=== PATIENT | male | born 1935 | race Caucasian/White ===

== ENCOUNTER 2016-08-18 15:14 | Inpatient (IN) | payer MEDICARE, OTHER ==
[2016-08-18] MEDS ORDERED: Sodium Chloride 0.9% 1,000 ML IV SCH (16:00)
--- NOTE | 2016-08-18 18:07 | EDM.PDOC ---
ED HPI GENERAL MEDICAL PROBLEM - General Chief Complaint: General Stated Complaint: ADMIT VIA CLINIC Time Seen by Provider: 08/18/16 15:30 Source of Information: Reports: Patient, EMS, Family History Limitations: Reports: No limitations - History of Present Illness INITIAL COMMENTS - FREE TEXT/NARRATIVE: pt was sent from the clinic looking quite jaundiced. He has muild upper abdomanal pain. he is not vomiting. He noticed some skin changes about 1 week ago. Onset: gradual Duration: Week(s): Location: Reports: generalized Associated Symptoms: Reports: denies other symptoms, weakness - Related Data Allergies Allergy/AdvReac Type Severity Reaction Status Date / Time No Known Allergies Allergy Verified 08/18/16 16:47 Home Meds: Home Meds Multivitamin with Minerals [Multiple Vitamin] 1 each PO DAILY 11/19/13 [History] [place]-3/DHA/Epa/Fish Oil [Fish Oil 1,000 mg Softgel] 1 each PO DAILY 11/19/13 [ History] Sennosides/Docusate Sodium [Sennosides-Docusate Sodium] 1 each PO BID 11/19/13 [ History] Melatonin/Pyridoxine HCl (B6) [Melatonin 10 mg Tablet] 1 each PO BEDTIME [History] Finasteride [Proscar] 5 mg PO DAILY #30 tablet 12/14/13 [Rx] Tamsulosin [Flomax] 0.4 mg PO PCBRK #30 cap.er 12/14/13 [Rx] Hydrocodone/Acetaminophen [Hydrocodone-Acetaminophen 5-325] 1 tab PO Q6H [History] Nitroglycerin [Nitrostat] 0.4 mg SL ASDIRECTED 07/03/15 [History] Past Medical History HEENT History: Reports: Allergic rhinitis, Hard of hearing, Impaired vision Gastrointestinal History: Reports: Chronic constipation, Diverticulosis, Gastritis, GI bleed, Other (see below) Other Gastrointestinal History: "vitaticulitisis" Genitourinary History: Reports: BPH, Prostate disorder Musculoskeletal History: Reports: Other (see below) Other Musculoskeletal History: collar bone Hematologic History: Reports: Transfusion reaction - Infectious Disease History Infectious Disease History: Reports: Chicken pox - Past Surgical History HEENT Surgical History: Reports: Tonsillectomy GI Surgical History: Reports: Colonoscopy Male Surgical History: Reports: TURP-Transurethral resection of prostate Musculoskeletal Surgical History: Reports: Shoulder surgery Other Musculoskeletal Surgeries/Procedures:: knee surgery Dermatological Surgical History: Reports: None Social & Family History - Family History Family Medical History: Noncontributory - Tobacco Use Smoking Status *Q: Never Smoker Second Hand Smoke Exposure: No - Caffeine Use Caffeine Use: Reports: None - Recreational Drug Use Recreational Drug Use: No ED ROS GENERAL - Review of Systems Review Of Systems: See Below Constitutional: Reports: decreased appetite HEENT: Reports: No symptoms Respiratory: Reports: No Symptoms Cardiovascular: Reports: No symptoms Endocrine: Reports: no symptoms GI/Abdominal: Reports: Other (pt has noted sig jaundice over the past week. He has just had prostate surgery for benign enlarged prostate and back surgery. ) : Reports: no symptoms Musculoskeletal: Reports: no symptoms Skin: Reports: jaundice Neurological: Reports: No Symptoms ED EXAM, GENERAL - Physical Exam Exam: See Below Free Text/Narrative:: pt arrived with mild discomfort in the upper abdoman. He has noted sig jaundice. Exam Limited By: No limitations General Appearance: alert, mild distress, other (Pt is severely jaundiced. ) Ears: normal TMs Nose: normal inspection Throat/Mouth: Normal inspection Head: atraumatic Neck: normal inspection Respiratory/Chest: no respiratory distress Cardiovascular: regular rate, rhythm GI/Abdominal: soft, other ( very mild upper abdomanal tenderness. The liver on palpation does not appear to be enlarged. ) (Male) Exam: Deferred Rectal (Males) Exam: Deferred Back Exam: normal inspection Extremities: normal inspection Neurological: alert, oriented, normal cognition Psychiatric: anxious Skin Exam: Jaundice Course - Vital Signs Last Recorded V/S: Last Vital Signs Temp 37.3 C 08/18/16 15:39 Pulse 66 08/18/16 15:39 Resp 16 08/18/16 15:39 BP 139/86 08/18/16 15:39 Pulse Ox 98 08/18/16 15:39 - Orders/Labs/Meds Orders: Active Orders 24 hr Category Date Time Status Abdomen Ltd [US] Stat Exams 08/18/16 15:51 Taken Abdomen Pelvis wo Cont [CT] Stat Exams 08/18/16 16:46 Taken AMMONIA VENOUS [CHEM] Stat Lab 08/18/16 18:31 Ordered PTT,PARTIAL THROMBOPLSTIN TIME [COAG] Stat Lab 08/18/16 18:31 Ordered Sodium Chloride 0.9% [Normal Saline] 1,000 ml Med 08/18/16 16:00 Active IV ASDIRECTED Medication Orders Sodium Chloride (Normal Saline) 1,000 mls @ 250 mls/hr IV ASDIRECTED MIKE Last Admin: 08/18/16 17:32 Dose: 250 mls/hr Labs: Laboratory Tests 08/18/16 08/18/16 Range/Units 15:49 15:49 ESR 83 H (0-20) mm/hr Amylase 20 L (25-115) U/L Lipase 37 L (73-393) U/L Meds: Medications Generic Name Dose Route Start Last Admin Trade Name Tayla PRN Reason Stop Dose Admin Sodium Chloride 1,000 mls @ 250 mls/hr 08/18/16 16:00 08/18/16 17:32 Normal Saline IV 250 mls/hr ASDIRECTED MIKE Administration - Re-Assessments/Exams Free Text/Narrative Re-Assessment/Exam: 08/18/16 18:29 liver enzymes markedly elevated, pancreatic enzymes normal cat scan of the abdoman shows a dilated gb and common duct. No stones are seen. sed rate is 80. Departure - Departure Time of Disposition: 18:32 Disposition: Admitted As Inpatient 66 Condition: fair Clinical Impression: Jaundice, Elevated liver enzymes, Abdominal pain Forms: ED Department Discharge Care Plan Goals: admit to Dr correa. - My Orders Last 24 Hours: My Active Orders 08/18/16 15:51 Abdomen Ltd [US] Stat 08/18/16 16:00 Sodium Chloride 0.9% [Normal Saline] 1,000 ml IV ASDIRECTED 08/18/16 16:46 Abdomen Pelvis wo Cont [CT] Stat 08/18/16 18:31 AMMONIA VENOUS [CHEM] Stat PTT,PARTIAL THROMBOPLSTIN TIME [COAG] Stat - Assessment/Plan Last 24 Hours: My Active Orders 08/18/16 15:51 Abdomen Ltd [US] Stat 08/18/16 16:00 Sodium Chloride 0.9% [Normal Saline] 1,000 ml IV ASDIRECTED 08/18/16 16:46 Abdomen Pelvis wo Cont [CT] Stat 08/18/16 18:31 AMMONIA VENOUS [CHEM] Stat PTT,PARTIAL THROMBOPLSTIN TIME [COAG] Stat
--- NOTE | 2016-08-18 19:08 | PCM.HP ---
H&P History of Present Illness - General Date of Service: 08/18/16 Admit Problem/Dx: Admission Diagnosis/Problem Admission Diagnosis/Problem Jaundice Source of Information: Patient, Provider, RN notes reviewed History Limitations: Reports: No limitations - History of Present Illness Initial Comments - Free Text/Narative: This patient is an 81-year-old gentleman was admitted through the emergency room for further evaluation of weakness, anorexia, pruritus, and severe jaundice. He felt well until about a week ago when he began to note yellow coloration to his skin, during that period of time is also developed other associated symptoms as noted. He denies any abdominal pain, nausea, or vomiting. Labs obtained at the clinic showed marked elevation in bilirubin at 20. CT scan of the abdomen and pelvis without contrast shows an enlarged gallbladder, with no wall thickening or pericolic fluid. CT scan showed no evidence of stones but did document intra-and extrahepatic ductal dilatation as well as prominence of the proximal pancreatic duct. - Related Data Allergies/Adverse Reactions: Allergies Allergy/AdvReac Type Severity Reaction Status Date / Time No Known Allergies Allergy Verified 08/18/16 16:47 Home Medications: Home Meds Multivitamin with Minerals [Multiple Vitamin] 1 each PO DAILY 11/19/13 [History] [place]-3/DHA/Epa/Fish Oil [Fish Oil 1,000 mg Softgel] 1 each PO DAILY 11/19/13 [ History] Sennosides/Docusate Sodium [Sennosides-Docusate Sodium] 1 each PO BID 11/19/13 [ History] Melatonin/Pyridoxine HCl (B6) [Melatonin 10 mg Tablet] 1 each PO BEDTIME [History] Finasteride [Proscar] 5 mg PO DAILY #30 tablet 12/14/13 [Rx] Tamsulosin [Flomax] 0.4 mg PO PCBRK #30 cap.er 12/14/13 [Rx] Hydrocodone/Acetaminophen [Hydrocodone-Acetaminophen 5-325] 1 tab PO Q6H [History] Nitroglycerin [Nitrostat] 0.4 mg SL ASDIRECTED 07/03/15 [History] Past Medical History HEENT History: Reports: Allergic rhinitis, Hard of hearing, Impaired vision Gastrointestinal History: Reports: Chronic constipation, Diverticulosis, Gastritis, GI bleed, Other (see below) Other Gastrointestinal History: "vitaticulitisis" Genitourinary History: Reports: BPH, Prostate disorder Musculoskeletal History: Reports: Other (see below) Other Musculoskeletal History: collar bone Hematologic History: Reports: Transfusion reaction - Infectious Disease History Infectious Disease History: Reports: Chicken pox - Past Surgical History HEENT Surgical History: Reports: Tonsillectomy GI Surgical History: Reports: Colonoscopy Male Surgical History: Reports: TURP-Transurethral resection of prostate Musculoskeletal Surgical History: Reports: Shoulder surgery Other Musculoskeletal Surgeries/Procedures:: knee surgery Dermatological Surgical History: Reports: None Social & Family History - Family History Family Medical History: Noncontributory - Tobacco Use Smoking Status *Q: Never Smoker Second Hand Smoke Exposure: No - Caffeine Use Caffeine Use: Reports: None - Recreational Drug Use Recreational Drug Use: No H&P Review of Systems - Review of Systems: Review Of Systems: See Below General: Reports: weakness, decreased appetite. Denies: fever, chills, diaphoresis HEENT: Reports: no symptoms Pulmonary: Reports: No Symptoms Cardiovascular: Reports: no symptoms Gastrointestinal: Reports: No symptoms Genitourinary: Reports: no symptoms Musculoskeletal: Reports: no symptoms Skin: Reports: jaundice, pruritis Psychiatric: Reports: no symptoms Neurological: Reports: No Symptoms Hematologic/Lymphatic: Reports: no symptoms Immunologic: Reports: no symptoms Exam - Exam Exam: See Below - Vital Signs Vital Signs: Last Vital Signs Temp 99.2 F 08/18/16 15:39 Pulse 66 08/18/16 15:39 Resp 16 08/18/16 15:39 BP 139/86 08/18/16 15:39 Pulse Ox 98 08/18/16 15:39 Weight: 170 lb - Exam Quality Assessment: DVT prophylaxis General: alert, oriented, cooperative, mild distress HEENT: Hearing intact, Mucosa moist & pink, Nares patent, Normal nasal septum, Posterior pharynx clear, Scleral icterus Neck: supple, trachea midline, +2 carotid pulse wo bruit Lungs: Clear to auscultation, Normal respiratory effort Cardiovascular: regular rate, regular rhythm, normal S1, normal S2. No: systolic murmur, diastolic murmur Abdomen: normal bowel sounds, soft. No: organomegaly, peritoneal signs, distention, guarding, rigidity, rebound, tenderness Back Exam: normal inspection, full range of motion, NT Extremities: 3, normal inspection, 10 Skin: other (Jaundice) Neurological: cranial nerves intact, strength equal bilateral, normal speech, normal tone, sensation intact. No: focal deficit Neuro Extensive - Mental Status: alert, oriented x3, normal mood/affect, normal cognition, memory intact *Q Meaningful Use (ADM) - VTE *Q VTE Criteria *Q: - VTE Risk Assess *Q Each Risk Factor Represents 1 Point: None Total Score 1 Point Risk Factors: 0 Each Risk Factor Represents 2 Points: None Total Score 2 Point Risk Factors: 0 Each Risk Factor Represents 3 Points: Age 75 Years or Greater Total Score 3 Point Risk Factors: 3 Each Risk Factor Represents 5 Points: None Total Score 5 Point Risk Factors: 0 Venous Thromboembolism Risk Factor Score *Q: 3 - Stroke *Q Stroke Criteria *Q: - AMI *Q AMI Criteria *Q: Problem List Initiated/Reviewed/Updated: Yes Orders Last 24hrs: Active Orders 24 hr Category Date Time Status Resuscitation Status Routine Resus Stat 08/18/16 18:34 Ordered Medication Orders Sodium Chloride (Normal Saline) 1,000 mls @ 250 mls/hr IV ASDIRECTED MIKE Last Admin: 08/18/16 17:32 Dose: 250 mls/hr Assessment/Plan Comment:: ASSESSMENT AND PLAN PAINLESS JAUNDICE-jaundice and symptoms of weakness, anorexia, and pruritus have developed over the past week. Differential includes common duct stone, ampullary carcinoma, or pancreatic carcinoma. -IV fluids for hydration -Consult Dr. Short for surgical opinion in a.m. -MRCP in a.m. ACUTE ON CHRONIC KIDNEY DISEASE-likely secondary to dehydration. At baseline has chronic kidney disease stage III. -IV fluids for hydration -Repeat labs in a.m. BPH-status post TUR one month ago -Continue outpatient medical regimen MAINTENANCE ISSUES -DVT prophylaxis; Lovenox 30 mg subcutaneous every 24 hours -GI prophylaxis; not indicated -Stanford catheter; not indicated -Nutrition; regular diet -Nicotine dependence; not required CODE STATUS-FULL CODE ADMISSION STATUS-patient will be admitted to inpatient status, expect at least a 2 night hospital stay for evaluation and management of problems as outlined above. At the time of this admission I do not reasonably expected evaluation and management of this problem will require more than a 96 hour hospital stay. DISPOSITION-anticipate discharge to home after the hospital stay. PRIMARY CARE PROVIDER-Dr. Raygoza
[2016-08-18] MEDS ORDERED: Docusate Sodium 100 MG Cap PO PRN (19:48)
[2016-08-18] MEDS ORDERED: Sodium Chloride 0.9% 10 ML Syringe FLUSH PRN (19:48)
[2016-08-18] MEDS ORDERED: oxyCODONE 5 MG Tab PO PRN (19:48)
[2016-08-18] MEDS ORDERED: Polyethylene Glycol 3350 Powder 17 GM Packet PO PRN (19:48)
[2016-08-18] MEDS ORDERED: Enoxaparin 30 MG/0.3 ML Syringe SUBCUT SCH (19:48)
[2016-08-18] MEDS ORDERED: Ondansetron 4 MG/2 ML SDV IV PRN (19:48)
[2016-08-18] MEDS ORDERED: Magnesium Hydroxide 400 MG/5 ML Susp 30 ML Cup PO PRN (19:48)
[2016-08-18] MEDS: Sodium Chloride 0.9% 1,000 ML IV SCH (22:37)
[2016-08-19] MEDS: Sodium Chloride 0.9% 1,000 ML IV SCH ×2 (06:40→16:26)
--- NOTE | 2016-08-19 08:16 | CONS ---
DATE OF SERVICE: 08/19/2016 REFERRING PHYSICIAN: CONSULTING PHYSICIAN: Michelle Cook PA-C HISTORY OF PRESENT ILLNESS: Edgard Genao is an 81-year-old male who Toño Montesinos MD, requested a surgical consult. Edgard was admitted through the emergency room for evaluation of weakness, anorexia, pruritus, and severe jaundice. His CT scan did show thickening at the periampullary area. He is n.p.o. and will be having an MRCP today. He felt he was doing well. He states until about one week ago he noticed yellow coloration to his skin, and he also had an uncomfortable feeling in his right upper quadrant. Then, he developed nausea and vomiting. He presented to the emergency room on 08/18/2016. The CT did show an enlarged gallbladder. HOME MEDICATIONS: See EMR. PAST MEDICAL HISTORY: Allergic rhinitis, hard of hearing, impaired vision, chronic constipation, diverticulosis, gastritis, history of GI bleed, BPH prostate disorder, and he had a blood transfusion with a reaction. PAST SURGICAL HISTORY: Includes tonsillectomy, transurethral resection of prostate 2 months ago, bilateral shoulder surgery, and knee surgery. SOCIAL HISTORY: retired from [employer] as a [employer]. 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 He lives alone in [facility], and he has 2 adult children. Does not drink coffee. Smoking history, nonapplicable. FAMILY HISTORY: Noncontributory. REVIEW OF SYSTEMS: CONSTITUTIONAL: Denies any fever, chills, night sweats, or fatigue. Reports weakness, decreased appetite. HEENT: Negative. LUNGS: No shortness of breath or cough. CARDIOVASCULAR: No chest pain, fast or irregular heart beat. No swelling in ankles or feet. GASTROINTESTINAL: As above. GENITOURINARY: Has improved after prostate surgery. MUSCULOSKELETAL: No joint pain or swelling. SKIN: Reports extreme itching and jaundice. PSYCHIATRIC: No depression, anxiety, or insomnia. NEUROLOGICAL: No headaches, dizziness, loss of coordination. HEMOLYTIC/LYMPHATIC: Negative. Remainder of review of systems negative for any pertinent positives or negatives. OBJECTIVE: GENERAL: Edgard Genao is an 81-year-old male. He is alert and orientated. Height is 5 feet 8.5 inches, weight is 170 pounds. VITAL SIGNS: TPR 99.5, 70, 16, blood pressure 146/84. HEENT: Negative. NECK: Supple. HEART: Regular rate and rhythm. LUNGS: Clear. ABDOMEN: Tenderness is noted in the right upper quadrant. GENITOURINARY: Deferred. EXTREMITIES: Without peripheral edema. Full range of motion. SKIN: Jaundiced, pruritic. NEUROLOGIC: Cranial nerves II through XII intact. MUSCULOSKELETAL: Equal muscle strength in upper and lower extremities. PSYCHIATRIC: Mood and affect appropriate. ASSESSMENT: 1. Right upper quadrant abdominal pain. 2. Jaundice. 3. Acute on chronic kidney disease. 4. Benign prostatic hypertrophy, status post TURP one month ago. PLAN: 1. MRCP is scheduled today. 2. Call Gary Short MD with the results. 3. Remain n.p.o. 4. Good pulmonary toilet encouraged. 5. We will evaluate p.r.n. or in a.m. Michelle Cook PA-C /[phone]
[2016-08-19] MEDS ORDERED: Finasteride 5 MG Tab PO SCH (09:00)
[2016-08-19] MEDS: Tamsulosin 0.4 MG Cap.ER PO SCH ×2 (09:15→13:05)
[2016-08-19] MEDS: Enoxaparin 30 MG/0.3 ML Syringe SUBCUT SCH (09:15)
[2016-08-19] MEDS ORDERED: Gadoteridol 279.3 MG/ML 15 ML SDV IV PRN (09:45)
--- NOTE | 2016-08-19 12:42 | MR ---
MR abdomen with and without contrast and MRCP. Indication: Biliary distention. Findings: There is moderate to advanced intrahepatic or ductal dilatation. The common bile duct is u p to 11 mm in diameter. There is abrupt tapering at the pancreatic head/uncinate process. The gallbl adder is dilated up to 11 mm. Some trace pericholecystic fluid. Trace ascites fluid is identified as well. There is dilatation of the pancreatic duct within the body and tail. This tapers towards the pancreatic head/uncinate process. Within the pancreatic head/uncinate process there is a hypoenhanci ng 18 mm mass AP x 14 mm mass transverse. Superior mesenteric artery is patent. Superior mesenteric vein is patent without narrowing. There are a few tiny peripancreatic lymph nodes about the uncinate process and head. Adrenal glands within normal limits. Spleen within normal limits. No hydronephros is. No definite filling defect within the common bile duct. Impression: 1. Hypointense mass within the pancreatic head/uncinate process. This measures 18 x 14 mm and most s uggestive of pancreatic adenocarcinoma. There is abrupt tapering of a dilated pancreatic and common bile duct.
[2016-08-19] MEDS: Finasteride 5 MG Tab PO SCH (13:11)
--- NOTE | 2016-08-19 14:27 | PCM.PN ---
- General Info Date of Service: 08/19/16 Functional Status: Reports: pain controlled, ambulating, urinating - Review of Systems General: Reports: Weakness. Denies: Fever, Chills Pulmonary: Reports: no symptoms Cardiovascular: Reports: No Symptoms Gastrointestinal: Reports: Abdominal pain, Decreased appetite, Nausea. Denies: Constipation, Difficulty swallowing, Hematochezia, Melena, Vomiting Skin: Reports: jaundice Systems Review Comment:: This patient has remained stable since admission, he now reports some right upper quadrant abdominal pain that he has been having intermittently. At the time of admission did not report significant pain associated with his jaundice. MRCP was obtained today and shows a mass at the head of the pancreas causing obstruction of both external bile ducts as well as pancreatic duct, this is likely the source of his significant jaundice. Mass is 1.8 cm in size and consistent with a pancreatic carcinoma. He has been seen and evaluated by Dr. Short the plan is to proceed with surgery tomorrow. - Patient Data Vitals - most recent: Last Vital Signs Temp 99.5 F 08/19/16 07:21 Pulse 70 08/19/16 07:21 Resp 16 08/19/16 07:21 BP 146/84 H 08/19/16 07:21 Pulse Ox 99 08/19/16 07:21 Weight - most recent: 170 lb 4 oz I&O - last 24 hours: Intake & Output 08/18/16 08/19/16 08/19/16 22:59 06:59 14:59 Intake Total 480 240 Output Total 575 1175 Balance -95 -935 Lab Results last 24 hrs: Laboratory Results - last 24 hr 08/19/16 08/19/16 08/19/16 Range/Units 05:00 05:00 05:00 WBC 6.4 (4.5-11.0) K/uL RBC 3.18 L (4.30-5.90) M/uL Hgb 9.7 L (12.0-15.0) g/dL Hct 28.2 L (40.0-54.0) % MCV 89 (80-98) fL MCH 31 (27-31) pg MCHC 34 (32-36) % Plt Count 268 (150-400) K/uL Neut % (Auto) 54 (36-66) % Lymph % (Auto) 29 (24-44) % [place] % (Auto) 12 H (2-6) % Eos % (Auto) 4 (2-4) % Baso % (Auto) 2 H (0-1) % PT 11.3 (9.5-12.0) sec INR 1.06 (0.80-1.20) Sodium 139 L (140-148) mmol/L Potassium 4.3 (3.6-5.2) mmol/L Chloride 108 (100-108) mmol/L Carbon Dioxide 21 (21-32) mmol/L Anion Gap 14.3 H (5.0-14.0) mmol/L BUN 36 H (7-18) mg/dL Creatinine 1.8 H (0.8-1.3) mg/dL Est Cr Clr Drug Dosing TNP Estimated GFR (MDRD) 36 L (>60) Glucose 114 H (74-106) mg/dL Calcium 8.4 L (8.5-10.1) mg/dL Magnesium 1.8 (1.8-2.4) mg/dL Total Bilirubin 18.3 H D (0.2-1.0) mg/dL AST 325 H D (15-37) U/L ALT 660 H (12-78) U/L Alkaline Phosphatase 550 H D (46-116) U/L Total Protein 6.5 (6.4-8.2) g/dL Albumin 2.6 L (3.4-5.0) g/dL Globulin 3.9 H (2.3-3.5) g/dL Albumin/Globulin Ratio 0.7 L (1.2-2.2) Med Orders - Current: Current Medications Docusate Sodium (Colace) 100 mg PO BID PRN PRN Reason: Constipation Enoxaparin Sodium (Lovenox) 30 mg SUBCUT DAILY [facility] Last Admin: 08/19/16 09:15 Dose: 30 mg Finasteride (Proscar) 5 mg PO DAILY [facility] Last Admin: 08/19/16 13:11 Dose: 5 mg Dextrose/Lactated Ringer's (Dextrose 5%-Lactated Ringers) 1,000 mls @ 100 mls/ hr IV ASDIRECTED [facility] Cefoxitin Sodium 2 gm/ Sodium (Chloride) 50 mls @ 100 mls/hr IV ONCALL ONE Stop: 08/20/16 10:59 Magnesium Hydroxide (Milk Of Magnesia) 30 ml PO Q12H PRN PRN Reason: Constipation Melatonin (Melatonin) 4.5 mg PO BEDTIME [facility] Ondansetron HCl (Zofran) 4 mg IV Q4H PRN PRN Reason: Nausea/Vomiting Oxycodone HCl (Oxycodone) 5 mg PO Q4H PRN PRN Reason: Pain (moderate 4-6) Polyethylene Glycol (Miralax) 17 gm PO DAILY PRN PRN Reason: Constipation Senna/Docusate Sodium (Senna Plus) 1 tab PO BID [facility] Last Admin: 08/19/16 13:06 Dose: 1 tab Sodium Chloride (Saline Flush) 10 ml FLUSH ASDIRECTED PRN PRN Reason: Keep Vein Open Tamsulosin HCl (Flomax) 0.4 mg PO PCBRK [facility] Last Admin: 08/19/16 13:05 Dose: 0.4 mg Discontinued Medications Finasteride (Proscar) 5 mg PO DAILY [facility] Last Admin: 08/19/16 13:08 Dose: Not Given Gadoteridol (Prohance) 15 ml IV .A DIRECTED PRN PRN Reason: RADIOLOGY EXAM Stop: 08/20/16 09:46 Last Admin: 08/19/16 12:04 Dose: 15 ml Sodium Chloride (Normal Saline) 1,000 mls @ 250 mls/hr IV ASDIRECTED [facility] Last Admin: 08/18/16 17:32 Dose: 250 mls/hr Sodium Chloride (Normal Saline) 1,000 mls @ 125 mls/hr IV ASDIRECTED [facility] Last Admin: 08/19/16 06:40 Dose: 125 mls/hr - Exam General: alert, oriented, cooperative, mild distress Lungs: Clear to auscultation, Normal respiratory effort Cardiovascular: Regular Rate, Regular Rhythm, No Murmurs Abdomen: bowel sounds present, soft, no distension, tenderness. No: rigidity, rebound, guarding Extremities: no edema Skin: other (Jaundice) - Problem List Review Problem List Initiated/Reviewed/Updated: Yes - My Orders Last 24 Hours: My Active Orders 08/18/16 18:34 Resuscitation Status Routine 08/18/16 19:48 Patient Status [ADT] Routine Intake and Output [RC] QSHIFT Notify Provider Consults [RC] ASDIRECTED Notify Provider Vital Signs [RC] ASDIRECTED Oxygen Therapy [RC] PRN Peripheral IV Care [RC] . DIRECTED Up With Assistance [RC] ASDIRECTED VTE/DVT Education [RC] Per Unit Routine Vital Signs [RC] Q4H Consult to Physician [CONS] Routine Docusate Sodium [Colace] 100 mg PO BID PRN Magnesium Hydroxide [Milk of Magnesia] 30 ml PO Q12H PRN Ondansetron [Zofran] 4 mg IV Q4H PRN Polyethylene Glycol 3350 [MiraLAX] 17 gm PO DAILY PRN Sodium Chloride 0.9% [Saline Flush] 10 ml FLUSH ASDIRECTED PRN oxyCODONE 5 mg PO Q4H PRN Peripheral IV Insertion Adult [OM.PC] Routine 08/19/16 09:00 Enoxaparin [Lovenox] 30 mg SUBCUT DAILY 08/19/16 13:30 Finasteride [Proscar] 5 mg PO DAILY 08/19/16 21:00 Melatonin 4.5 mg PO BEDTIME - Plan Plan:: ASSESSMENT AND PLAN PANCREATIC CARCINOMA CAUSING OBSTRUCTION-jaundice and symptoms of weakness, anorexia, and pruritus have developed over the past week. -IV fluids for hydration -Surgical management per Dr. Short ACUTE ON CHRONIC KIDNEY DISEASE-likely secondary to dehydration. At baseline has chronic kidney disease stage III. -IV fluids for hydration -Repeat labs in a.m. BPH-status post TUR one month ago -Continue outpatient medical regimen MAINTENANCE ISSUES -DVT prophylaxis; Lovenox 30 mg subcutaneous every 24 hours -GI prophylaxis; not indicated -Stanford catheter; not indicated -Nutrition; regular diet -Nicotine dependence; not required CODE STATUS-FULL CODE ADMISSION STATUS-patient will be admitted to inpatient status, expect at least a 2 night hospital stay for evaluation and management of problems as outlined above. At the time of this admission I do not reasonably expected evaluation and management of this problem will require more than a 96 hour hospital stay. DISPOSITION-anticipate discharge to home after the hospital stay. PRIMARY CARE PROVIDER-Dr. Raygoza
[2016-08-19] MEDS ORDERED: Melatonin 3 MG Tab PO SCH (21:00)
[2016-08-20] MEDS: Dextrose 5%-Lactated Ringers 1,000 ML IV SCH ×4 (00:36→22:11)
--- NOTE | 2016-08-20 08:54 | PN ---
DATE OF SERVICE: 08/20/2016 SUBJECTIVE: Edgard is an 81-year-old male. He is n.p.o. He will be having surgery around noon. Labs this morning revealed a hemoglobin of 8.4. Potassium was 4.1. He reports his pain as 0 on a pain scale of 1-10. REVIEW OF SYSTEMS: Remainder of review of systems negative for any pertinent positives or negatives. OBJECTIVE: GENERAL: Edgard Genao is an 81-year-old male. He is alert and orientated. SKIN: Jaundiced. VITAL SIGNS: TPR is 99.2, 74, 18, blood pressure is 139/90. HEENT: Negative. NECK: Supple. HEART: Regular rate and rhythm. LUNGS: Clear. ABDOMEN: Remains to be tender in the right upper and mid quadrant. He reports it is less tender than prior. EXTREMITIES: Without peripheral edema. ASSESSMENT: Right upper quadrant abdominal pain, jaundice, acute on chronic kidney pain, BPH. PLAN: Scheduled for OR around noon, orders written. Orders to be written postoperatively. Michelle Cook PA-C /[id number]
[2016-08-20] MEDS: Tamsulosin 0.4 MG Cap.ER PO SCH (09:02)
[2016-08-20] MEDS: Enoxaparin 30 MG/0.3 ML Syringe SUBCUT SCH (09:02)
[2016-08-20] MEDS: Finasteride 5 MG Tab PO SCH (09:03)
[2016-08-20] MEDS ORDERED: fentaNYL 250 MCG/5 ML SDV ONE ×2 (09:18→12:35)
[2016-08-20] MEDS ORDERED: Neostigmine Methylsulfate 1 MG/ML 5 ML Syringe ONE (09:19)
[2016-08-20] MEDS ORDERED: Propofol 200 MG/20 ML SDV ONE (09:19)
[2016-08-20] MEDS ORDERED: Succinylcholine/Normal Saline 200 MG/10 ML Syringe ONE (09:19)
[2016-08-20] MEDS ORDERED: Rocuronium 50 MG/5 ML Vial ONE ×2 (09:19→14:51)
[2016-08-20] MEDS ORDERED: Dexamethasone 4 MG/ML SDV ONE (09:19)
[2016-08-20] MEDS ORDERED: Ondansetron 4 MG/2 ML SDV ONE (09:19)
[2016-08-20] MEDS ORDERED: cefOXitin 2 GM in Sodium Chloride 0.9% 50 ML IV ONE (10:30)
[2016-08-20] MEDS ORDERED: Naloxone 0.4 MG/ML SDV IVPUSH PRN (11:57)
[2016-08-20] MEDS: HYDROmorphone/Normal Saline 15 MG/30 ML PCA IV PRN (12:12)
[2016-08-20] MEDS ORDERED: Meropenem 500 MG SDV ONE (12:29)
[2016-08-20] MEDS: fentaNYL 25 MCG/HR Transdermal Patch TRDERM SCH (12:31)
[2016-08-20] MEDS ORDERED: Sodium Chloride 0.9% 1,000 ML ONE (13:34)
[2016-08-20] MEDS ORDERED: cefOXitin 2 GM Vial ONE (14:28)
[2016-08-20] MEDS ORDERED: hydrOXYzine HCl 50 MG/ML SDV IM PRN (17:27)
[2016-08-20] MEDS: FENTANYL PATCH CHECK TOP SCH ×2 (17:29→22:12)
[2016-08-20] MEDS: Pantoprazole 40 MG Vial IV SCH (17:54)
[2016-08-20] MEDS: cefOXitin 2 GM in Sodium Chloride 0.9% 50 ML IV SCH (19:48)
[2016-08-21] MEDS: cefOXitin 2 GM in Sodium Chloride 0.9% 50 ML IV SCH (01:54)
[2016-08-21] MEDS: FENTANYL PATCH CHECK TOP SCH ×2 (08:30→21:10)
[2016-08-21] MEDS ORDERED: Ampicillin/Sulbactam Na 3 GM in Sodium Chloride 0.9% 100 ML IV SCH (09:00)
[2016-08-21] MEDS: Magnesium Sulfate/Water 2 GM in Premix Bag 1 BAG IV SCH ×3 (11:40→21:41)
[2016-08-21] MEDS: Ampicillin/Sulbactam Na 3 GM in Sodium Chloride 0.9% 100 ML IV SCH (16:08)
[2016-08-21] MEDS: Pantoprazole 40 MG Vial IV SCH (16:30)
[2016-08-21] MEDS: Dextrose 5%-Lactated Ringers 1,000 ML IV SCH ×2 (17:09→23:45)
[2016-08-22] MEDS: Ampicillin/Sulbactam Na 3 GM in Sodium Chloride 0.9% 100 ML IV SCH ×3 (00:59→18:07)
[2016-08-22] MEDS: Magnesium Sulfate/Water 2 GM in Premix Bag 1 BAG IV SCH ×4 (04:06→21:02)
[2016-08-22] MEDS: HYDROmorphone/Normal Saline 15 MG/30 ML PCA IV PRN (05:39)
[2016-08-22] MEDS ORDERED: Meropenem 500 MG SDV ONE (06:48)
[2016-08-22] MEDS ORDERED: Bupivacaine 0.5% 50 ML MDV ONE (06:48)
[2016-08-22] MEDS ORDERED: Lidocaine 1% with EPINEPHrine 1:100,000 50 ML MDV ONE (06:48)
[2016-08-22] MEDS: Dextrose 5%-Lactated Ringers 1,000 ML IV SCH ×3 (07:11→21:02)
[2016-08-22] MEDS ORDERED: Propofol 200 MG/20 ML SDV ONE (07:41)
[2016-08-22] MEDS ORDERED: Lidocaine 1% 2 ML ONE (07:49)
[2016-08-22] MEDS ORDERED: Furosemide 20 MG/2 ML VIAL IVPUSH ONE ×2 (09:00→14:00)
[2016-08-22] MEDS: FENTANYL PATCH CHECK TOP SCH ×2 (10:42→20:41)
--- NOTE | 2016-08-22 12:08 | PN ---
DATE OF SERVICE: 08/22/2016 The patient has been afebrile with stable vital signs. No major problems were noted overnight. Urine output remains adequate, but not overly high. Creatinine is down somewhat at 2.1, otherwise, NG output has been relatively scant. We will discontinue the NG tube at the time of the delayed primary closure. Urine output is still not overtly high and we will keep the bladder catheter in today in anticipation of needing to watch his urine output somewhat closely. Additionally, the patient has a fairly elevated BNP around 2800, which is some higher than yesterday. We will give him some IV Lasix empirically after the closure and otherwise maximize activity and work with pulmonary toilet. The STALRA drains continue to show no signs of biliary leak, and bilirubin is down somewhat further at 12.8 this morning. Gary Short MD /[id number]
--- NOTE | 2016-08-22 14:09 | PN ---
DATE OF SERVICE: 08/21/2016 The patient has been afebrile with stable vital signs. No major problems are noted overnight. Urine output is adequate. The scrotum is up somewhat at 2.4 from 1.8 baseline. Otherwise, he is alert. NG output has been relatively scant to avoid aspiration risk with that in for today, and we will plan to proceed with a delayed primary closure tomorrow. Otherwise, hemoglobin is 8.9. We will give him 1 unit packed RBCs and maximize activity and work with pulmonary toilet. The IV rate running at fairly high rate. Magnesium is low level, will be supplemented, and we will recheck some labs this morning. As noted, his bilirubin went down to 13 from a level of 17 yesterday, and the drains are bloody, but no signs of any bile leak. The operative findings were discussed with the patient, and these are, as expected somewhat disappointed, but looks forward to perhaps treating the tumor with some chemotherapy and such. Gary Short MD /[id number]
[2016-08-22] MEDS: Pantoprazole 40 MG Vial IV SCH (18:07)
[2016-08-23] MEDS: Ampicillin/Sulbactam Na 3 GM in Sodium Chloride 0.9% 100 ML IV SCH ×3 (00:27→17:28)
[2016-08-23] MEDS: Magnesium Sulfate/Water 2 GM in Premix Bag 1 BAG IV SCH ×4 (04:14→22:24)
[2016-08-23] MEDS ORDERED: Dextrose 5%-Lactated Ringers 1,000 ML IV SCH (08:15)
[2016-08-23] MEDS: FENTANYL PATCH CHECK TOP SCH ×2 (08:34→20:41)
[2016-08-23] MEDS: Furosemide 20 MG/2 ML VIAL IV SCH ×2 (08:34→14:00)
--- NOTE | 2016-08-23 09:28 | PN ---
DATE OF SERVICE: 08/23/2016 SUBJECTIVE: Edgard is postop day 3, and he had delayed primary closure on 08/22/2016. He reports his pain is controlled. Hemoglobin this morning is 8.8, he has received 3 units of packed red blood cells. STARLA drains have put out 40, 60, 65, and 8 respectively of a light red drainage. Output via Stanford catheter is 4465. He did have Lasix yesterday. He has no other questions or concerns today. REVIEW OF SYSTEMS: Remainder of review of systems negative for any pertinent positives or negatives. OBJECTIVE: GENERAL: Edgard Genao is an 81-year-old male. He is alert and orientated. Color remains jaundiced. VITAL SIGNS: TPR is 97.9, 70, 20, blood pressure 171/84, O2 by pulse oximetry is 96% on 1 L of O2. HEENT: Negative. NECK: Supple. HEART: Regular rate and rhythm. LUNGS: Clear. ABDOMEN: Dressings dry and intact. STARLA drains x4 intact as above. EXTREMITIES: Without peripheral edema. Stanford catheter is in. 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 Date of surgery 08/20/2016. Delayed primary closure 08/22/2016. PLAN: 1. 1 unit of packed red blood cells now. 2. Full liquid diet. 3. Check CBC, CMP, mag, phos, and BNP in a.m. 4. Discontinue Stanford catheter. 5. Decrease IV to 80 mL/h. 6. Lasix 20 mg IV now repeat in 6 hours. 7. Shower, leave Aquacel dressing on. 8. Good pulmonary toilet encouraged. 9. We will evaluate p.r.n. or in a.m. Michelle Cook PA-C /[id number]
--- NOTE | 2016-08-23 12:34 | PN ---
DATE OF SERVICE: 08/19/2016 SUBJECTIVE: Mr. Genao underwent MRI of the liver and pancreatic areas earlier today, appears to have a 1.5 x 1.8 cm mass in the head of pancreas causing the occlusion of the common bile duct. There does not appear to be any major lymphadenopathy, only some small nodes in the peripancreatic area and no evidence of liver metastases. This scan was able to be done with contrast as opposed to the CT scan, so we are getting a better visualization of those structures. The patient's tumor comes quite close to the superior mesenteric vein, the portal vein, and hepatic artery, but there appears to be likely a plane of dissection at that area, although this was not obviously a certainty. The plan at this point would be to proceed with an exploratory laparotomy tomorrow. If a pancreaticoduodenectomy is appropriate and technically feasible, we would proceed in that direction, otherwise most likely proceed with a cholecystectomy and hepaticojejunostomy to alleviate the biliary obstruction. The tumor does appear to have some encroachment on the duodenum, but very far away from an obstructive lesion, so we likely would not do a gastrojejunostomy and thus this appears to be more advanced at the time of inspection. Potential risks of the procedure including bleeding, infection, leaks from the various GI tract closures, possibility the tumor may not be resectable and/or tumor recurs postoperatively were all gone over along with the possibility of cardiopulmonary, septic, or hemorrhagic complications leading to and the patient wishes to proceed. He is somewhat anemic and we will provide 3 units of packed RBCs to be available for the procedure and plan surgical intervention tomorrow. Gary Short MD /[id number]
[2016-08-23] MEDS: fentaNYL 25 MCG/HR Transdermal Patch TRDERM SCH (12:56)
--- NOTE | 2016-08-23 13:25 | OR ---
DATE OF PROCEDURE: 08/22/2016 PREOPERATIVE DIAGNOSIS: Open abdominal incision. POSTOPERATIVE DIAGNOSIS: Open abdominal incision. PROCEDURE: Delayed primary closure, open abdominal incision. ANESTHESIA: IV sedation plus local. INDICATION FOR PROCEDURE: The patient is status post exploration for pancreatic carcinoma with hepaticocholedochojejunostomy being performed. The incision was felt to be at risk for a wound infection. Primary closure was undertaken. Given this was packed open for a planned delayed primary closure at this time, potential risks including bleeding and infection were reviewed, and the patient wishes to proceed. DETAILS OF PROCEDURE: The patient was taken to the operating room and placed in the supine position. IV sedation was administered, after which the postoperative packing was removed. Incision inspected and found to be clean. The wound was prepped and draped, anesthetized with 1% lidocaine and irrigated with meropenem-containing saline solution. This was a long bilateral subcostal incision and the incision was then closed with some 3-0 and 4-0 Vicryl stitch deep and then salud for the skin. A 10-Amharic round Tam-Valdes drain was taken out through the right lateral aspect of the incision and sutured with some 3-0 Vicryl stitch. The patient was taken to the recovery room in satisfactory condition. There were no evident complications. Gary Short MD /[id number]
--- NOTE | 2016-08-23 13:38 | OR ---
DATE OF PROCEDURE: 08/20/2016 PREOPERATIVE DIAGNOSIS: Probable pancreatic carcinoma involving pancreatic head. POSTOPERATIVE DIAGNOSIS: Probable pancreatic carcinoma involving the head of pancreas with encasement of superior mesenteric vein, portal vein, and abutment and adherence to hepatic artery. OPERATIVE PROCEDURES: Exploratory laparotomy with; 1. Formation of Silverio-en-Y hepaticojejunostomy (69102). 2. Cholecystectomy (02745). 3. Both core and fine-needle aspiration, transduodenal biopsies of pancreatic mass (28138). ANESTHESIA: General. INTERNET MARKETING MANAGER: Michelle Cook PA-C. INDICATION FOR PROCEDURE: Please see the progress note dated 08/19/2016. DETAILS OF PROCEDURE: The patient was taken to the operating room and after general endotracheal anesthesia was induced, a Stanford catheter was inserted along the nasogastric tube, and the abdomen was prepped and draped. A bilateral subcostal incision was made and carried down through the full-thickness abdominal wall, and the peritoneal cavity then entered. Upon exploration, the patient was noted to have an obvious hard mass in the head of pancreas. There were no palpable or visible liver metastases, and no lymphadenopathy within the celiac area or blayne hepatis. There was no evidence of peritoneal seeding or ascites. On subsequent dissection, the patient was noted to have the tumor free of the inferior vena cava posteriorly, however, after division of the common bile duct, dissection downward revealed encasement of the portal vein posteriorly. This had roughly 200 degrees encasement of the portal vein at the superior edge of the pancreatic mass. Subsequent dissection inferiorly revealed some encasement of the distal superior mesenteric vein. These findings in and of themselves could not render the patient non-resectable. On further dissection, there was also noted to be a dense adherence of the mass to the hepatic artery as it passed by the area, making a tumor-free resection not plausible. Given this, the plan was then made to proceed with a hepaticojejunostomy and cholecystectomy along with transduodenal biopsies of the mass to help establish histologic diagnosis. There was minimal encroachment of the duodenum and it was felt that a gastrojejunostomy at this time would not be necessary. After entering the abdomen, a Padmini maneuver was made reflecting the transverse colon away from the area of the head of the pancreas. Peritoneum lateral to the duodenum was then incised and dissection behind the duodenum and head of the pancreas lifting it off the vena cava was then accomplished. At this point, the cholecystectomy was performed with division of the cystic duct and cystic artery with a DANNY stapler, and the gallbladder was then dissected off the gallbladder bed using electrocautery and delivered from the field. This then led dissection downward onto the quite distended common bile duct. This was encircled and divided at a point more or less just above the entrance of the cystic duct, i.e. this would be the common hepatic duct. As one dissected downward of the more distal common bile duct off the portal vein, one entered the upper end of the mass. When dissection began, the area of the portal vein became evident. There was encasement of the portal vein at the upper end of the mass with this being somewhat greater than 180 degrees involvement of portal vein circumference. Further dissection in that area also revealed the mass densely adherent to the common hepatic duct as it curved passed that area. A plane of dissection was attempted to be established between the hepatic artery and the mass. This did not appear to be approachable in terms of a dissection plane. Dissection inferiorly upon the superior mesenteric vein showed the mass to be involving the superior mesenteric vein at a point just below the splenic vein confluence as well. Given the hepatic artery findings, it was felt that a tumor-free resection would not be plausible and, as mentioned above, we then opted toward the above-stated procedures. At this point, transduodenal core biopsies and fine-needle aspiration biopsies were obtained. Frozen section was obtained on one of the core biopsies. This showed atypical cells, but the pathologist at this time was not willing to commit to a diagnosis. Given this, some additional core biopsies were obtained along with the fine-needle aspiration, using an 18-gauge needle, all of these via transduodenal approach, so as to avoid problems with pancreatic fistula. The puncture sites at the duodenum were suture ligated with figure- of-eight stitches of 3-0 Vicryl stitch and subsequently covered with omentum and fibrin sealant. At this point, a Silverio limb was constructed. The small bowel was identified at the ligament of Treitz and divided roughly 20 cm distal to that point. Going then 75 cm further distally, the jejunojejunostomy was accomplished with internal firing of the DANNY vascular stapler. The common opening closed transversely with mesenteric stapler and angles of the anastomosis and the mesenteric defect approximated with some 3-0 Vicryl stitch. The Silverio limb was then routed through a retrocolic approach to the transverse mesentery, which easily came up to the divided hepatic duct. The hepatic duct at this time was noted to be roughly 1.5 cm in diameter and given this, a stent was not felt to be necessary. The common hepatic duct had initially been divided by stapler and that staple line was then excised leaving the open end for the anastomosis. The antimesenteric part of the Silverio limb just proximal to the staple line was then opened as well. Initially, 2 stay sutures were placed on the corners, using 3-0 Vicryl stitch, the posterior row of interrupted 3-0 Vicryl stitches were then placed and following this, the anterior row of 3-0 Vicryl stitch was placed and tied. This resulted in a secured anastomosis. Prior to tying the last 2 sutures, a right angle clamp was placed into the lumen and it was confirmed that adequate luminal diameter was present. The last 2 sutures were then tied. The area of dissection was inspected. No bleeding or other problems were noted. At this point, the abdomen was irrigated with meropenem-containing saline solution. Three Tam- Valdes drains were then placed; one posterior to the hepaticojejunostomy, one anterior to it, and then one along the edge of the duodenum. Fibrin sealant was placed over the duodenal puncture sites, and the omentum flipped up into that area as well. Then, the hepaticojejunostomy was reinforced with fibrin sealant as well and some omentum brought up into that region as well. At this point, no further problems were noted. The incision was closed with 2 layers of #2 Vicryl stitch. The skin and subcutaneous tissue were felt to be at high risk for wound infection given the edema and open bowel during the case and given this, packed open for a planned delayed primary closure. Drains affixed with some 3-0 Vicryl stitch. The patient was taken to the recovery room in satisfactory condition. There were no evident complications. Physician procurement assistant, Michelle Cook, played an essential role in assisting in this case, helping to position the patient, retract structures as needed as well as suturing and cutting sutures as indicated. Her presence improved patient safety and decreased the operative time. Gary Short MD /[id number]
[2016-08-23] MEDS: HYDROmorphone/Normal Saline 15 MG/30 ML PCA IV PRN (13:59)
[2016-08-23] MEDS: Pantoprazole 40 MG Vial IV SCH (16:48)
[2016-08-24] MEDS: Ampicillin/Sulbactam Na 3 GM in Sodium Chloride 0.9% 100 ML IV SCH ×3 (00:20→17:37)
[2016-08-24] MEDS: Magnesium Sulfate/Water 2 GM in Premix Bag 1 BAG IV SCH (03:38)
[2016-08-24] MEDS ORDERED: Dextrose 5%-Lactated Ringers 1,000 ML IV SCH (07:17)
[2016-08-24] MEDS ORDERED: Furosemide 20 MG/2 ML VIAL IVPUSH ONE ×2 (07:30→16:00)
[2016-08-24] MEDS ORDERED: Nitroglycerin 0.4 MG Tab.SL SL PRN (07:30)
[2016-08-24] MEDS ORDERED: Magnesium Hydroxide 400 MG/5 ML Susp 30 ML Cup PO ONE (08:00)
[2016-08-24] MEDS: Potassium Chloride 20 MEQ, Lidocaine 1% 2 ML in Sodium Chloride 0.9% 100 ML IV SCH ×2 (08:37→12:35)
[2016-08-24] MEDS: FENTANYL PATCH CHECK TOP SCH ×2 (08:42→21:17)
[2016-08-24] MEDS ORDERED: Potassium Chloride 10% 20 MEQ/15 ML Soln 15 ML UD Cup PO ONE (09:00)
--- NOTE | 2016-08-24 11:59 | PCM.CONS ---
H&P History of Present Illness - General Date of Service: 08/24/16 Admit Problem/Dx: Admission Diagnosis/Problem Admission Diagnosis/Problem Jaundice Source of Information: Patient, Provider History Limitations: Reports: No limitations - History of Present Illness Initial Comments - Free Text/Narative: Edgard was admitted for management of weakness, jaundice and suspicion for pancreatic cancer. He is now in the postoperative period after attempted but not completely successful resection of a pancreatic cancer. I was asked to see him today regarding hypertension and irregular tachycardia. This was first noted this morning and has progressed through the day. Her rates have been as high as the 130s. Systolic blood pressures in the 170s and diastolic pressures greater than 100. Edgard reports that he feels well and does not have chest pain or shortness of breath. He does not notice any palpitations. Noemi pain is well-controlled. No lower extremity edema. He has been up and walking around. He is not having any fevers. abdomen Pain Score (Numeric/FACES): 4 - Related Data Allergies/Adverse Reactions: Allergies Allergy/AdvReac Type Severity Reaction Status Date / Time No Known Allergies Allergy Verified 08/18/16 16:47 Home Medications: Home Meds Multivitamin with Minerals [Multiple Vitamin] 1 each PO DAILY 11/19/13 [History] [place]-3/DHA/Epa/Fish Oil [Fish Oil 1,000 mg Softgel] 1 each PO DAILY 11/19/13 [ History] Sennosides/Docusate Sodium [Sennosides-Docusate Sodium] 1 each PO BID 11/19/13 [ History] Finasteride [Proscar] 5 mg PO DAILY #30 tablet 12/14/13 [Rx] Tamsulosin [Flomax] 0.4 mg PO PCBRK #30 cap.er 12/14/13 [Rx] Hydrocodone/Acetaminophen [Hydrocodone-Acetaminophen 5-325] 1 tab PO Q6H [History] Nitroglycerin [Nitrostat] 0.4 mg SL ASDIRECTED 07/03/15 [History] Melatonin 5 mg PO BEDTIME 08/19/16 [History] Past Medical History HEENT History: Reports: Allergic rhinitis, Hard of hearing, Impaired vision Gastrointestinal History: Reports: Chronic constipation, Diverticulosis, Gastritis, GI bleed, Other (see below) Other Gastrointestinal History: "vitaticulitisis" Genitourinary History: Reports: BPH, Prostate disorder Musculoskeletal History: Reports: Other (see below) Other Musculoskeletal History: collar bone Hematologic History: Reports: Transfusion reaction - Infectious Disease History Infectious Disease History: Reports: Chicken pox - Past Surgical History HEENT Surgical History: Reports: Tonsillectomy GI Surgical History: Reports: Colonoscopy Male Surgical History: Reports: TURP-Transurethral resection of prostate Musculoskeletal Surgical History: Reports: Shoulder surgery Other Musculoskeletal Surgeries/Procedures:: knee surgery Dermatological Surgical History: Reports: None Social & Family History - Family History Family Medical History: Noncontributory - Tobacco Use Smoking Status *Q: Never Smoker Second Hand Smoke Exposure: No - Caffeine Use Caffeine Use: Reports: None - Alcohol Use Alcohol Use History: No - Recreational Drug Use Recreational Drug Use: No H&P Review of Systems - Review of Systems: Review Of Systems: See Below Free Text/Narrative: A complete 12 point review of systems was obtained. Pertinent positives and negatives are noted in the history of present illness. All other systems were reviewed and were negative except as noted. Exam - Exam Exam: See Below - Vital Signs Vital Signs: Last Vital Signs Temp 37.4 C 08/24/16 10:25 Pulse 124 H 08/24/16 10:25 Resp 16 08/24/16 10:25 BP 170/114 H 08/24/16 10:25 Pulse Ox 96 08/24/16 10:25 Weight: 77.2 kg - Exam Quality Assessment: No: supplemental oxygen, urinary catheter General: alert, oriented, cooperative. No: mild distress HEENT: Conjunctiva clear, Mucosa moist & pink, Scleral icterus Neck: supple, trachea midline. No: lymphadenopathy, thyromegaly Lungs: Clear to auscultation, Normal respiratory effort. No: Rales, Wheezing Cardiovascular: irregular rhythm, tachycardia. No: systolic murmur Abdomen: soft, distention Back Exam: normal inspection, full range of motion Extremities: normal pulses, edema (mild bilateral ankle edema). No: cyanosis Peripheral Pulses: 2+: dorsalis pedis (L), dorsalis pedis (R) Skin: warm, dry, other (jaundice ) Neuro Extensive - Mental Status: alert, oriented x3, nl response to commands Neuro Extensive - Motor, Sensory, Reflexes: CN II-XII intact. No: dysarthria, abnormal motor, tremor Psychiatric: alert, normal affect, normal mood - Patient Data Lab Results last 24 hrs: Laboratory Results - last 24 hr 08/24/16 08/24/16 Range/Units 04:00 04:00 WBC 10.4 (4.5-11.0) K/uL RBC 3.53 L (4.30-5.90) M/uL Hgb 10.4 L (12.0-15.0) g/dL Hct 30.6 L (40.0-54.0) % MCV 87 (80-98) fL MCH 30 (27-31) pg MCHC 34 (32-36) % Plt Count 205 (150-400) K/uL Sodium 135 L (140-148) mmol/L Potassium 3.3 L (3.6-5.2) mmol/L Chloride 100 (100-108) mmol/L Carbon Dioxide 29 (21-32) mmol/L Anion Gap 9.3 (5.0-14.0) mmol/L BUN 25 H (7-18) mg/dL Creatinine 2.2 H (0.8-1.3) mg/dL Est Cr Clr Drug Dosing 25.91 mL/min Estimated GFR (MDRD) 29 L (>60) Glucose 164 H (74-106) mg/dL Calcium 8.1 L (8.5-10.1) mg/dL Phosphorus 3.3 (2.5-4.9) mg/dL Magnesium 3.3 H (1.8-2.4) mg/dL Total Bilirubin 9.6 H (0.2-1.0) mg/dL AST 100 H (15-37) U/L ALT 275 H (12-78) U/L Alkaline Phosphatase 288 H (46-116) U/L Aip-S-Xsohuezfnhu Pept 5054 H (5-450) pg/mL Total Protein 6.0 L (6.4-8.2) g/dL Albumin 2.0 L (3.4-5.0) g/dL Globulin 4.0 H (2.3-3.5) g/dL Albumin/Globulin Ratio 0.5 L (1.2-2.2) Result Diagrams: 08/24/16 04:00 08/24/16 04:00 Consult PN Assessment/Plan Procedures: Procedures ASSAY OF CK (CPK) (10/15/14) ASSAY OF LACTIC ACID (12/11/13) ASSAY OF MAGNESIUM (12/11/13) ASSAY OF TROPONIN QUANT (10/15/14) BLOOD CULTURE FOR BACTERIA (12/11/13) BLOOD TRANSFUSION SERVICE (02/07/14) BLOOD TYPING SEROLOGIC ABO (02/07/14) BLOOD TYPING SEROLOGIC RH(D) (02/07/14) CARDIOVASCULAR STRESS TEST (10/17/14) CARDIOVASCULAR STRESS TEST (10/17/14) CHEST X-RAY 2VW FRONTAL&LATL (10/15/14) COMPATIBILITY TEST ANTIGLOB (02/07/14) COMPATIBILITY TEST SPIN (02/07/14) COMPLETE CBC AUTOMATED (12/11/13) COMPLETE CBC W/AUTO DIFF WBC (06/17/15) COMPREHEN METABOLIC PANEL (06/17/15) CT ABD & PELVIS W/O CONTRAST (12/11/13) DIAGNOSTIC COLONOSCOPY (07/07/15) ELECTROCARDIOGRAM TRACING (10/15/14) EMERGENCY DEPT VISIT (06/17/15) EMERGENCY DEPT VISIT (10/15/14) EMERGENCY DEPT VISIT (10/15/14) EMERGENCY DEPT VISIT (11/19/13) HT MUSCLE IMAGE SPECT MULT (10/17/14) HYDRATION IV INFUSION INIT (06/17/15) INTMD RPR N-HF/GENIT7.6-12.5 (11/19/13) METABOLIC PANEL TOTAL CA (12/11/13) MRI LUMBAR SPINE W/O DYE (08/27/15) RBC ANTIBODY SCREEN (02/07/14) ROUTINE VENIPUNCTURE (06/17/15) TTE W/DOPPLER COMPLETE (12/02/14) URINALYSIS AUTO W/SCOPE (10/15/14) Problem List Initiated/Reviewed/Updated: Yes My Orders last 24 hours: My Active Orders 08/24/16 11:54 Cardiac Monitoring [RC] CONTINUOUS 08/24/16 11:55 EKG Documentation Completion [RC] ASDIRECTED EKG 12 Lead [EK] Routine 08/24/16 12:00 Metoprolol Tartrate [Lopressor] 25 mg PO Q12HR 08/24/16 16:00 Furosemide [Lasix] 40 mg IVPUSH ONETIME ONE 08/24/16 17:00 POTASSIUM,K [CHEM] Timed Plan: Assessment and Plan - Irregular tachycardia - multiple PACs and some PVCs noted on telemetry. No cardiopulmonary symptoms. He does have an elevated BNP as well as some evidence for volume overload on examination. I do not see any evidence for infection. He does not have lower extremity edema. No history of atrial fibrillation. I suspect that his irregularity will improve as his volume status is optimized. -Additional dose of furosemide this afternoon to optimize volume status -Recheck potassium this afternoon -Magnesium level is excellent -Low-dose beta jean -Telemetry -EKG Unresectable pancreatic cancer - patient is planning to visit with the oncologist in [place] prior to additional management recommendations. Thank you for the interesting consultation and allowing me to be involved in [facility]. I will continue to follow along during the acute phase of the hospital stay. Denny Davis M.D. Requesting Provider: Michelle Cook/Dr. Short Date Consult Requested: 08/24/16 Reason for Consult: Hypertension and irregular tachycardia Patient History Reviewed: Yes Admission H&P Reviewed: Yes Notified Requestor: No Time Spent (in minutes): 45
[2016-08-24] MEDS: Metoprolol Tartrate 25 MG Tab PO SCH ×2 (12:36→21:14)
[2016-08-24] MEDS ORDERED: Furosemide 40 MG/4 ML VIAL IVPUSH ONE (16:00)
[2016-08-24] MEDS: Pantoprazole 40 MG Vial IV SCH (17:37)
[2016-08-24] MEDS: Melatonin 3 MG Tab PO SCH (21:14)
[2016-08-25] MEDS: Ampicillin/Sulbactam Na 3 GM in Sodium Chloride 0.9% 100 ML IV SCH ×3 (02:08→16:55)
[2016-08-25] MEDS ORDERED: Furosemide 20 MG/2 ML VIAL IVPUSH ONE ×2 (08:00→14:00)
[2016-08-25] MEDS: Bisacodyl 5 MG Tab PO SCH ×2 (09:01→21:01)
[2016-08-25] MEDS: Metoprolol Tartrate 25 MG Tab PO SCH ×2 (09:03→21:01)
[2016-08-25] MEDS: Potassium Chloride 10 MEQ Cap.ER PO SCH ×2 (09:04→21:00)
[2016-08-25] MEDS: FENTANYL PATCH CHECK TOP SCH ×2 (09:05→21:05)
--- NOTE | 2016-08-25 09:33 | PN ---
DATE OF SERVICE: 08/25/2016 SUBJECTIVE: Edgard is an 81-year-old male. He has not had a bowel movement yet. Pain has been controlled. He did have an episode yesterday of tachycardia, irregular heart beat, and increased blood pressure. Denny Davis MD was consulted and started him on metoprolol b.i.d. 25 mg, and he has had no further episodes. REVIEW OF SYSTEMS: Remainder of review of systems negative for any pertinent positives and negatives. OBJECTIVE: GENERAL: Edgard Genao is an 81-year-old male. He is alert and orientated. Color remains jaundiced. VITAL SIGNS: TPR is 98.2, 105, 16, and blood pressure 182/98. HEENT: Negative. NECK: Supple. HEART: Regular rate and rhythm. LUNGS: Clear. ABDOMEN: Dressings dry and intact. Abdominal binder is on. EXTREMITIES: Without peripheral edema. ASSESSMENT: 1. 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 Date of surgery 08/20/2016. 2. Delayed primary closure 08/22/2016. 3. Anemia, requiring 3 units of packed red blood cells. 4. Irregular tachycardia, multiple PACs and PVCs. PLAN: 1. 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 2. [place] 5/325 mg 1 to 2 every 4 hours p.r.n. pain. 3. Dulcolax 2 tabs b.i.d. p.o. 4. Saline lock IV. 5. Lasix 20 mg IV b.i.d. 6. KCl 40 mEq IV. 7. KCl 60 mEq p.o. today. 8. Good pulmonary toilet encouraged. 9. We will evaluate p.r.n. or in a.m. Michelle Cook PA-C /[id number]
[2016-08-25] MEDS: Potassium Chloride 20 MEQ, Lidocaine 1% 2 ML in Sodium Chloride 0.9% 100 ML IV SCH ×2 (11:01→13:30)
--- NOTE | 2016-08-25 11:25 | PCM.CONSN ---
- General Info Date of Service: 08/25/16 Functional Status: Reports: pain controlled, tolerating diet, ambulating - Review of Systems General: Reports: Weakness Gastrointestinal: Reports: Abdominal pain Systems Review Comment:: No acute events overnight. Volume status seems slightly improved today. There has been less PVCs and PACs after metoprolol was started. Patient complains of moderate abdominal pain. No complaints of shortness of breath or chest pain. He is able to ambulate significant distances without significant shortness of breath but he has remained on supplemental oxygen. Good diuresis the past 2 days. - Patient Data Vitals - most recent: Last Vital Signs Temp 37.2 C 08/25/16 11:02 Pulse 119 H 08/25/16 11:02 Resp 18 08/25/16 11:02 BP 168/93 H 08/25/16 11:02 Pulse Ox 99 08/25/16 11:02 Weight - most recent: 77.2 kg I&O - last 24 hours: Intake & Output 08/24/16 08/25/16 08/25/16 22:59 06:59 14:59 Intake Total 1630 485 210 Output Total 1275 1490 1500 Balance 355 -1005 -1290 Lab Results last 24 hrs: Laboratory Results - last 24 hr 08/24/16 08/25/16 08/25/16 Range/Units 17:00 04:38 04:38 WBC 10.0 (4.5-11.0) K/uL RBC 3.31 L (4.30-5.90) M/uL Hgb 9.7 L (12.0-15.0) g/dL Hct 29.4 L (40.0-54.0) % MCV 89 (80-98) fL MCH 29 (27-31) pg MCHC 33 (32-36) % Plt Count 193 (150-400) K/uL Sodium 139 L (140-148) mmol/L Potassium 4.3 3.6 (3.6-5.2) mmol/L Chloride 102 (100-108) mmol/L Carbon Dioxide 32 (21-32) mmol/L Anion Gap 8.6 (5.0-14.0) mmol/L BUN 28 H (7-18) mg/dL Creatinine 2.3 H (0.8-1.3) mg/dL Est Cr Clr Drug Dosing 24.78 mL/min Estimated GFR (MDRD) 27 L (>60) Glucose 131 H (74-106) mg/dL Calcium 7.5 L (8.5-10.1) mg/dL Phosphorus 3.8 (2.5-4.9) mg/dL Magnesium 2.5 H (1.8-2.4) mg/dL Total Bilirubin 8.2 H (0.2-1.0) mg/dL AST 87 H (15-37) U/L ALT 227 H (12-78) U/L Alkaline Phosphatase 266 H (46-116) U/L Udt-[id number] Pept 4039 H (5-450) pg/mL Total Protein 5.8 L (6.4-8.2) g/dL Albumin 1.9 L (3.4-5.0) g/dL Globulin 3.9 H (2.3-3.5) g/dL Albumin/Globulin Ratio 0.5 L (1.2-2.2) Med Orders - Current: Current Medications Hydrocodone Bitart/Acetaminophen ([place] 325-5 Mg) 1 - 2 tab PO Q4H PRN PRN Reason: Pain Bisacodyl (Dulcolax) 20 mg PO BID [facility] Last Admin: 08/25/16 09:01 Dose: 20 mg Fentanyl (Duragesic) 25 mcg TRDERM Q72H [facility] Last Admin: 08/23/16 12:56 Dose: 25 mcg Furosemide (Lasix) 40 mg IVPUSH ONETIME ONE Stop: 08/25/16 14:01 Hydroxyzine HCl (Vistaril) 100 mg IM Q4H PRN PRN Reason: PAIN Ampicillin Sodium/Sulbactam (Sodium 3 gm/ Sodium Chloride) 100 mls @ 200 mls/ hr IV Q8H [facility] Last Admin: 08/25/16 09:14 Dose: 200 mls/hr Potassium Chloride 20 meq/Lidocaine HCl 2 ml/ Sodium Chloride 112 mls @ 56 mls/ hr IV Q2H [facility] Stop: 08/25/16 13:59 Last Admin: 08/25/16 11:01 Dose: 56 mls/hr Melatonin (Melatonin) 3 mg PO BEDTIME [facility] Last Admin: 08/24/16 21:14 Dose: 3 mg Metoprolol Tartrate (Lopressor) 25 mg PO BID [facility] Last Admin: 08/25/16 09:03 Dose: 25 mg Nitroglycerin (Nitrostat) 0.4 mg SL ASDIRECTED PRN PRN Reason: CHEST PAIN Fentanyl Patch Check 1 each TOP BID [facility] Last Admin: 08/25/16 09:05 Dose: Not Given Ondansetron HCl (Zofran) 4 mg IV Q4H PRN PRN Reason: Nausea/Vomiting Potassium Chloride (Potassium Chloride) 30 meq PO BID [facility] Last Admin: 08/25/16 09:04 Dose: 30 meq Senna/Docusate Sodium (Senna Plus) 2 tab PO BEDTIME [facility] Last Admin: 08/24/16 21:14 Dose: 2 tab Sodium Chloride (Saline Flush) 10 ml FLUSH ASDIRECTED PRN PRN Reason: Keep Vein Open Discontinued Medications Bupivacaine HCl (Marcaine 0.5%) Confirm Administered Dose 50 ml .ROUTE .STK-MED ONE Stop: 08/22/16 06:49 Last Admin: 08/22/16 07:59 Dose: 25 ml Cefoxitin Sodium (Mefoxin) Confirm Administered Dose 2 gm .ROUTE .STK-MED ONE Stop: 08/20/16 14:29 Dexamethasone (Dexamethasone) Confirm Administered Dose 4 mg .ROUTE .STK-MED ONE Stop: 08/20/16 09:20 Docusate Sodium (Colace) 100 mg PO BID PRN PRN Reason: Constipation Enoxaparin Sodium (Lovenox) 30 mg SUBCUT DAILY [facility] Last Admin: 08/20/16 09:02 Dose: Not Given Fentanyl (Sublimaze) Confirm Administered Dose 250 mcg .ROUTE .STK-MED ONE Stop: 08/20/16 09:19 Fentanyl (Sublimaze) Confirm Administered Dose 250 mcg .ROUTE .STK-MED ONE Stop: 08/20/16 12:36 Finasteride (Proscar) 5 mg PO DAILY [facility] Last Admin: 08/19/16 13:08 Dose: Not Given Finasteride (Proscar) 5 mg PO DAILY [facility] Last Admin: 08/20/16 09:03 Dose: Not Given Furosemide (Lasix) 10 mg IVPUSH ONETIME ONE Stop: 08/22/16 09:01 Last Admin: 08/22/16 10:41 Dose: 10 mg Furosemide (Lasix) 10 mg IVPUSH ONETIME ONE Stop: 08/22/16 14:01 Last Admin: 08/22/16 16:12 Dose: 10 mg Furosemide (Lasix) 20 mg IV Q6H [facility] Stop: 08/23/16 14:31 Last Admin: 08/23/16 14:00 Dose: 20 mg Furosemide (Lasix) 20 mg IVPUSH ONETIME ONE Stop: 08/24/16 07:31 Last Admin: 08/24/16 08:36 Dose: 20 mg Furosemide (Lasix) 20 mg IVPUSH ONETIME ONE Stop: 08/24/16 16:01 Furosemide (Lasix) 40 mg IVPUSH ONETIME ONE Stop: 08/24/16 16:01 Last Admin: 08/24/16 15:21 Dose: 40 mg Furosemide (Lasix) 20 mg IVPUSH ONETIME ONE Stop: 08/25/16 08:01 Last Admin: 08/25/16 09:01 Dose: 20 mg Furosemide (Lasix) 20 mg IVPUSH ONETIME ONE Stop: 08/25/16 14:01 Gadoteridol (Prohance) 15 ml IV .A DIRECTED PRN PRN Reason: RADIOLOGY EXAM Stop: 08/20/16 09:46 Last Admin: 08/19/16 12:04 Dose: 15 ml Glycopyrrolate () Confirm Administered Dose 1 mg .ROUTE .STK-MED ONE Stop: 08/20/16 09:20 Hydromorphone HCl (Dilaudid [place] S[place] 15 Mg In Ns 30 Ml) 0 mg IV ASDIRECTED PRN; Protocol PRN Reason: Pain Last Admin: 08/23/16 13:59 Dose: 15 mg Sodium Chloride (Normal Saline) 1,000 mls @ 250 mls/hr IV ASDIRECTED [facility] Last Admin: 08/18/16 17:32 Dose: 250 mls/hr Sodium Chloride (Normal Saline) 1,000 mls @ 125 mls/hr IV ASDIRECTED [facility] Last Admin: 08/19/16 16:26 Dose: 125 mls/hr Dextrose/Lactated Ringer's (Dextrose 5%-Lactated Ringers) 1,000 mls @ 100 mls/ hr IV ASDIRECTED [facility] Last Admin: 08/20/16 11:02 Dose: 100 mls/hr Cefoxitin Sodium 2 gm/ Sodium (Chloride) 50 mls @ 100 mls/hr IV ONCALL ONE Stop: 08/20/16 10:59 Last Admin: 08/20/16 11:50 Dose: 100 mls/hr Sodium Chloride (Normal Saline) Confirm Administered Dose 1,000 mls @ as directed .ROUTE .[facility] ONE Stop: 08/20/16 13:35 Dextrose/Lactated Ringer's (Dextrose 5%-Lactated Ringers) 1,000 mls @ 200 mls/ hr IV ASDIRECTED [facility] Stop: 08/21/16 17:59 Last Admin: 08/21/16 17:09 Dose: 200 mls/hr Cefoxitin Sodium 2 gm/ Sodium (Chloride) 50 mls @ 100 mls/hr IV Q6H [facility] Last Admin: 08/21/16 01:54 Dose: 100 mls/hr Dextrose/Lactated Ringer's (Dextrose 5%-Lactated Ringers) 1,000 mls @ 150 mls/ hr IV ASDIRECTED [facility] Last Admin: 08/22/16 21:02 Dose: 150 mls/hr Ampicillin Sodium/Sulbactam (Sodium 3 gm/ Sodium Chloride) 100 mls @ 200 mls/ hr IV Q6H [facility] Last Admin: 08/21/16 08:30 Dose: 200 mls/hr Magnesium Sulfate 2 gm/ Premix 50 mls @ 25 mls/hr IV Q6HR [facility] Stop: 08/24/16 05:59 Last Admin: 08/24/16 03:38 Dose: 25 mls/hr Lidocaine HCl (Xylocaine-Mpf 1%) Confirm Administered Dose 2 mls @ as directed .ROUTE .[facility] ONE Stop: 08/22/16 07:50 Dextrose/Lactated Ringer's (Dextrose 5%-Lactated Ringers) 1,000 mls @ 80 mls/ hr IV ASDIRECTED [facility] Last Admin: 08/23/16 15:13 Dose: 80 mls/hr Potassium Chloride 20 meq/Lidocaine HCl 2 ml/ Sodium Chloride 112 mls @ 56 mls/ hr IV Q2H [facility] Stop: 08/24/16 12:59 Last Admin: 08/24/16 12:35 Dose: 56 mls/hr Dextrose/Lactated Ringer's (Dextrose 5%-Lactated Ringers) 1,000 mls @ 0 mls/hr IV ASDIRECTED [facility] PRN Reason: KVO Last Admin: 08/24/16 08:42 Dose: 25 mls/hr Lidocaine/Epinephrine (Xylocaine 1% With Epinephrine 1:100,000) Confirm Administered Dose 50 ml .ROUTE .STK-MED ONE Stop: 08/22/16 06:49 Last Admin: 08/22/16 07:59 Dose: 25 ml Magnesium Hydroxide (Milk Of Magnesia) 30 ml PO Q12H PRN PRN Reason: Constipation Magnesium Hydroxide (Milk Of Magnesia) 30 ml PO ONETIME ONE Stop: 08/24/16 08:01 Last Admin: 08/24/16 08:36 Dose: 30 ml Melatonin (Melatonin) 4.5 mg PO BEDTIME [facility] Last Admin: 08/19/16 20:09 Dose: 4.5 mg Meropenem (Merrem) Confirm Administered Dose 500 mg .ROUTE .STK-MED ONE Stop: 08/20/16 12:30 Last Admin: 08/20/16 12:34 Dose: 500 mg Meropenem (Merrem) Confirm Administered Dose 500 mg .ROUTE .STK-MED ONE Stop: 08/22/16 06:49 Last Admin: 08/22/16 07:40 Dose: 500 mg Naloxone HCl (Narcan) 0.1 mg IVPUSH Q5M PRN PRN Reason: Respiratory Distress Neostigmine Methylsulfate (Neostigmine) Confirm Administered Dose 5 mg .ROUTE .STK-MED ONE Stop: 08/20/16 09:20 Ondansetron HCl (Zofran) Confirm Administered Dose 4 mg .ROUTE .STK-MED ONE Stop: 08/20/16 09:20 Oxycodone HCl (Oxycodone) 5 mg PO Q4H PRN PRN Reason: Pain (moderate 4-6) Last Admin: 08/19/16 20:07 Dose: 5 mg Pantoprazole Sodium (Protonix Iv) 40 mg IV Q24H [facility] Last Admin: 08/24/16 17:37 Dose: 40 mg Polyethylene Glycol (Miralax) 17 gm PO DAILY PRN PRN Reason: Constipation Potassium Chloride (Potassium Chloride Solution) 40 meq PO ONETIME ONE Stop: 08/24/16 09:01 Last Admin: 08/24/16 08:36 Dose: 40 meq Propofol (Diprivan 20 Ml) Confirm Administered Dose 200 mg .ROUTE .STK-MED ONE Stop: 08/20/16 09:20 Propofol (Diprivan 20 Ml) Confirm Administered Dose 200 mg .ROUTE .STK-MED ONE Stop: 08/22/16 07:42 Rocuronium [place] (Zem[place]) Confirm Administered Dose 50 mg .ROUTE .STK-MED ONE Stop: 08/20/16 09:20 Rocuronium [place] (Zem[place]) Confirm Administered Dose 50 mg .ROUTE .STK-MED ONE Stop: 08/20/16 14:52 Senna/Docusate Sodium (Senna Plus) 1 tab PO BID [facility] Last Admin: 08/20/16 09:03 Dose: Not Given Succinylcholine Chloride (Succinylcholine In Ns Pf) Confirm Administered Dose 200 mg .ROUTE .STK-MED ONE Stop: 08/20/16 09:20 Tamsulosin HCl (Flomax) 0.4 mg PO PCBRK [facility] Last Admin: 08/20/16 09:02 Dose: Not Given - Exam Quality Assessment: supplemental oxygen, urine catheter General: alert, oriented, cooperative, no acute distress HEENT: Scleral icterus Neck: supple Lungs: Clear to auscultation, Normal respiratory effort Cardiovascular: Regular Rate, Regular Rhythm, Murmurs Abdomen: soft, no distension Extremities: no edema, no cyanosis Skin: warm, dry, other (jaundice) Consult PN Assessment/Plan Procedures: Procedures ASSAY OF CK (CPK) (10/15/14) ASSAY OF LACTIC ACID (12/11/13) ASSAY OF MAGNESIUM (12/11/13) ASSAY OF TROPONIN QUANT (10/15/14) BLOOD CULTURE FOR BACTERIA (12/11/13) BLOOD TRANSFUSION SERVICE (02/07/14) BLOOD TYPING SEROLOGIC ABO (02/07/14) BLOOD TYPING SEROLOGIC RH(D) (02/07/14) CARDIOVASCULAR STRESS TEST (10/17/14) CARDIOVASCULAR STRESS TEST (10/17/14) CHEST X-RAY 2VW FRONTAL&LATL (10/15/14) COMPATIBILITY TEST ANTIGLOB (02/07/14) COMPATIBILITY TEST SPIN (02/07/14) COMPLETE CBC AUTOMATED (12/11/13) COMPLETE CBC W/AUTO DIFF WBC (06/17/15) COMPREHEN METABOLIC PANEL (06/17/15) CT ABD & PELVIS W/O CONTRAST (12/11/13) DIAGNOSTIC COLONOSCOPY (07/07/15) ELECTROCARDIOGRAM TRACING (10/15/14) EMERGENCY DEPT VISIT (06/17/15) EMERGENCY DEPT VISIT (10/15/14) EMERGENCY DEPT VISIT (10/15/14) EMERGENCY DEPT VISIT (11/19/13) HT MUSCLE IMAGE SPECT MULT (10/17/14) HYDRATION IV INFUSION INIT (06/17/15) INTMD RPR N-HF/GENIT7.6-12.5 (11/19/13) METABOLIC PANEL TOTAL CA (12/11/13) MRI LUMBAR SPINE W/O DYE (08/27/15) RBC ANTIBODY SCREEN (02/07/14) ROUTINE VENIPUNCTURE (06/17/15) TTE W/DOPPLER COMPLETE (12/02/14) URINALYSIS AUTO W/SCOPE (10/15/14) Problem List Initiated/Reviewed/Updated: Yes My Orders last 24 hours: My Active Orders 08/24/16 11:54 Cardiac Monitoring [RC] Q6H 08/24/16 11:55 EKG Documentation Completion [RC] ASDIRECTED EKG 12 Lead [EK] Routine 08/24/16 12:00 Metoprolol Tartrate [Lopressor] 25 mg PO BID 08/25/16 14:00 Furosemide [Lasix] 40 mg IVPUSH ONETIME ONE 08/26/16 07:30 Pantoprazole [ProTONIX] 40 mg PO ACBREAKFAST Plan: Assessment and Plan - Irregular tachycardia - multiple PACs and some PVCs noted on telemetry. Less ectopic beats after metoprolol started. Patient does not have symptoms of chest pain or shortness of breath. Blood pressures still moderately elevated but seem to be improving. I suspect that some extra volume is still the driving component for both blood pressure and the ectopic beats. -Continue diuresis, recommend at least 40 mg of furosemide per dose -Recheck potassium in the morning -Low-dose beta jean -Telemetry (may discontinue tomorrow if stable overnight) Unresectable pancreatic cancer - patient is planning to visit with the oncologist in [place] prior to additional management recommendations. Thank you for the interesting consultation and allowing me to be involved in [facility]. I will continue to follow along during the acute phase of the hospital stay. Denny Davis M.D.
[2016-08-25] MEDS ORDERED: Furosemide 40 MG/4 ML VIAL IVPUSH ONE (14:00)
[2016-08-25] MEDS: Acetaminophen/HYDROcodone 325-5 MG Tab PO PRN ×2 (18:48→23:15)
[2016-08-25] MEDS: Melatonin 3 MG Tab PO SCH (21:01)
[2016-08-26] MEDS: Ampicillin/Sulbactam Na 3 GM in Sodium Chloride 0.9% 100 ML IV SCH ×2 (00:13→08:34)
[2016-08-26] MEDS: Acetaminophen/HYDROcodone 325-5 MG Tab PO PRN (04:30)
[2016-08-26] MEDS: Pantoprazole 40 MG Tab.CR PO SCH (08:28)
[2016-08-26] MEDS: Potassium Chloride 10 MEQ Cap.ER PO SCH ×2 (08:29→20:28)
[2016-08-26] MEDS: FENTANYL PATCH CHECK TOP SCH ×2 (08:30→20:31)
[2016-08-26] MEDS: Metoprolol Tartrate 25 MG Tab PO SCH ×2 (08:31→20:27)
[2016-08-26] MEDS: HYDROmorphone 2 MG Tab PO PRN ×3 (08:43→19:28)
--- NOTE | 2016-08-26 09:21 | PN ---
DATE OF SERVICE: 08/26/2016 SUBJECTIVE: Edgard has had 5 bowel movements and STARLA drains remain intact. He states that his pain is not controlled. The PSYCHOLOGICAL OPERATIONS OFFICER worked better. He is taking [place] 5/325 mg every 4 hours. He has no other questions or concerns. OBJECTIVE: GENERAL: Edgard is a pleasant 81-year-old male. VITAL SIGNS: TPR is 97.9, 72, 18, blood pressure 151/89, O2 is 98% by pulse oximetry on 1 L of O2. HEENT: Negative. NECK: Supple. HEART: Regular rate and rhythm. LUNGS: Clear. ABDOMEN: Dressings dry and intact. He has 4 STARLA drains and they have put out 50, 40, 50, and 0 of a light pink serous drainage respectively. EXTREMITIES: SCDs are on and there is no peripheral edema. ASSESSMENT: 1. 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 2. Delayed primary closure on 08/22/2016. 3. Anemia, requiring 3 units of packed red blood cell. 4. Irregular heart rate, tachycardia, multiple premature atrial contractions, and premature ventricular contractions. 5. Pathology report confirmed pancreatic cancer. PLAN: 1. An appointment was made with Dr. Kerr for Tuesday08/30/2016 at 11:00 a.m. 2. Regular diet. 3. Plan discharge, the patient is requesting to go to a short-term shelter placement for rehabilitation. 4. Discontinue [place] due to inadequate pain control. 5. Dilaudid 2 mg 1 to 2 every 4 hours p.r.n. pain. 6. Discontinue Dulcolax tabs. 7. Good pulmonary toilet encouraged. 8. We will evaluate p.r.n. or in a.m. Mcihelle Cook PA-C /[id number]
--- NOTE | 2016-08-26 10:18 | PCM.PN ---
- General Info Date of Service: 08/26/16 Functional Status: Reports: pain controlled, tolerating diet - Review of Systems General: Reports: Weakness. Denies: Fever Pulmonary: Denies: shortness of breath Gastrointestinal: Reports: Abdominal pain Systems Review Comment:: No acute events overnight. Abdominal pain slowly improving. Strength slowly improving. Respiratory status slowly improving with diuresis. No fevers overnight. Appetite suboptimal but slowly improving as well. Lower extremity edema is better today. - Patient Data Vitals - most recent: Last Vital Signs Temp 36.6 C 08/26/16 08:38 Pulse 72 08/26/16 08:38 Resp 18 08/26/16 08:38 BP 151/89 H 08/26/16 08:38 Pulse Ox 98 08/26/16 08:38 Weight - most recent: 77.2 kg I&O - last 24 hours: Intake & Output 08/25/16 08/26/16 08/26/16 22:59 06:59 14:59 Intake Total 577 100 550 Output Total 2815 575 Balance -2238 -138 550 Lab Results last 24 hrs: Laboratory Results - last 24 hr 08/26/16 08/26/16 Range/Units 04:30 04:30 WBC 11.3 H (4.5-11.0) K/uL RBC 3.58 L (4.30-5.90) M/uL Hgb 10.6 L (12.0-15.0) g/dL Hct 32.2 L (40.0-54.0) % MCV 90 (80-98) fL MCH 30 (27-31) pg MCHC 33 (32-36) % Plt Count 216 (150-400) K/uL Sodium 140 (140-148) mmol/L Potassium 4.2 (3.6-5.2) mmol/L Chloride 100 (100-108) mmol/L Carbon Dioxide 34 H (21-32) mmol/L Anion Gap 10.2 (5.0-14.0) mmol/L BUN 36 H (7-18) mg/dL Creatinine 2.4 H (0.8-1.3) mg/dL Est Cr Clr Drug Dosing 23.75 mL/min Estimated GFR (MDRD) 26 L (>60) Glucose 155 H (74-106) mg/dL Calcium 8.0 L (8.5-10.1) mg/dL Phosphorus 3.3 (2.5-4.9) mg/dL Magnesium 2.3 (1.8-2.4) mg/dL Total Bilirubin 7.8 H (0.2-1.0) mg/dL AST 95 H (15-37) U/L ALT 225 H (12-78) U/L Alkaline Phosphatase 292 H (46-116) U/L Kon-[id number]-[id number] Pept 3919 H (5-450) pg/mL Total Protein 6.5 (6.4-8.2) g/dL Albumin 2.1 L (3.4-5.0) g/dL Globulin 4.4 H (2.3-3.5) g/dL Albumin/Globulin Ratio 0.5 L (1.2-2.2) Med Orders - Current: Current Medications Fentanyl (Duragesic) 25 mcg TRDERM Q72H [facility] Last Admin: 08/23/16 12:56 Dose: 25 mcg Furosemide (Lasix) 40 mg IVPUSH Q6H [facility] Stop: 08/26/16 16:16 Furosemide (Lasix) 40 mg IVPUSH ONETIME ONE Stop: 08/27/16 08:01 Hydromorphone HCl (Dilaudid) 2 - 4 mg PO Q4H PRN PRN Reason: Pain Last Admin: 08/26/16 08:43 Dose: 4 mg Hydroxyzine HCl (Vistaril) 100 mg IM Q4H PRN PRN Reason: PAIN Ampicillin Sodium/Sulbactam (Sodium 3 gm/ Sodium Chloride) 100 mls @ 200 mls/ hr IV Q8H [facility] Last Admin: 08/26/16 08:34 Dose: 200 mls/hr Melatonin (Melatonin) 3 mg PO BEDTIME [facility] Last Admin: 08/25/16 21:01 Dose: 3 mg Metoprolol Tartrate (Lopressor) 25 mg PO BID [facility] Last Admin: 08/26/16 08:31 Dose: 25 mg Nitroglycerin (Nitrostat) 0.4 mg SL ASDIRECTED PRN PRN Reason: CHEST PAIN Fentanyl Patch Check 1 each TOP BID [facility] Last Admin: 08/26/16 08:30 Dose: Not Given Ondansetron HCl (Zofran) 4 mg IV Q4H PRN PRN Reason: Nausea/Vomiting Pantoprazole Sodium (Protonix) 40 mg PO ACBREAKFAST [facility] Last Admin: 08/26/16 08:28 Dose: 40 mg Potassium Chloride (Potassium Chloride) 30 meq PO BID [facility] Last Admin: 08/26/16 08:29 Dose: 30 meq Senna/Docusate Sodium (Senna Plus) 2 tab PO BEDTIME [facility] Last Admin: 08/25/16 21:01 Dose: 2 tab Sodium Chloride (Saline Flush) 10 ml FLUSH ASDIRECTED PRN PRN Reason: Keep Vein Open Discontinued Medications Hydrocodone Bitart/Acetaminophen ([place] 325-5 Mg) 1 - 2 tab PO Q4H PRN PRN Reason: Pain Last Admin: 08/26/16 04:30 Dose: 2 tab Bisacodyl (Dulcolax) 20 mg PO BID [facility] Last Admin: 08/25/16 21:01 Dose: 20 mg Bupivacaine HCl (Marcaine 0.5%) Confirm Administered Dose 50 ml .ROUTE .STK-MED ONE Stop: 08/22/16 06:49 Last Admin: 08/22/16 07:59 Dose: 25 ml Cefoxitin Sodium (Mefoxin) Confirm Administered Dose 2 gm .ROUTE .STK-MED ONE Stop: 08/20/16 14:29 Dexamethasone (Dexamethasone) Confirm Administered Dose 4 mg .ROUTE .STK-MED ONE Stop: 08/20/16 09:20 Docusate Sodium (Colace) 100 mg PO BID PRN PRN Reason: Constipation Enoxaparin Sodium (Lovenox) 30 mg SUBCUT DAILY [facility] Last Admin: 08/20/16 09:02 Dose: Not Given Fentanyl (Sublimaze) Confirm Administered Dose 250 mcg .ROUTE .STK-MED ONE Stop: 08/20/16 09:19 Fentanyl (Sublimaze) Confirm Administered Dose 250 mcg .ROUTE .STK-MED ONE Stop: 08/20/16 12:36 Finasteride (Proscar) 5 mg PO DAILY [facility] Last Admin: 08/19/16 13:08 Dose: Not Given Finasteride (Proscar) 5 mg PO DAILY [facility] Last Admin: 08/20/16 09:03 Dose: Not Given Furosemide (Lasix) 10 mg IVPUSH ONETIME ONE Stop: 08/22/16 09:01 Last Admin: 08/22/16 10:41 Dose: 10 mg Furosemide (Lasix) 10 mg IVPUSH ONETIME ONE Stop: 08/22/16 14:01 Last Admin: 08/22/16 16:12 Dose: 10 mg Furosemide (Lasix) 20 mg IV Q6H [facility] Stop: 08/23/16 14:31 Last Admin: 08/23/16 14:00 Dose: 20 mg Furosemide (Lasix) 20 mg IVPUSH ONETIME ONE Stop: 08/24/16 07:31 Last Admin: 08/24/16 08:36 Dose: 20 mg Furosemide (Lasix) 20 mg IVPUSH ONETIME ONE Stop: 08/24/16 16:01 Furosemide (Lasix) 40 mg IVPUSH ONETIME ONE Stop: 08/24/16 16:01 Last Admin: 08/24/16 15:21 Dose: 40 mg Furosemide (Lasix) 20 mg IVPUSH ONETIME ONE Stop: 08/25/16 08:01 Last Admin: 08/25/16 09:01 Dose: 20 mg Furosemide (Lasix) 20 mg IVPUSH ONETIME ONE Stop: 08/25/16 14:01 Furosemide (Lasix) 40 mg IVPUSH ONETIME ONE Stop: 08/25/16 14:01 Last Admin: 08/25/16 14:31 Dose: 40 mg Gadoteridol (Prohance) 15 ml IV .A DIRECTED PRN PRN Reason: RADIOLOGY EXAM Stop: 08/20/16 09:46 Last Admin: 08/19/16 12:04 Dose: 15 ml Glycopyrrolate () Confirm Administered Dose 1 mg .ROUTE .STK-MED ONE Stop: 08/20/16 09:20 Hydromorphone HCl (Dilaudid [employer] 15 Mg In Ns 30 Ml) 0 mg IV ASDIRECTED PRN; Protocol PRN Reason: Pain Last Admin: 08/23/16 13:59 Dose: 15 mg Sodium Chloride (Normal Saline) 1,000 mls @ 250 mls/hr IV ASDIRECTED [facility] Last Admin: 08/18/16 17:32 Dose: 250 mls/hr Sodium Chloride (Normal Saline) 1,000 mls @ 125 mls/hr IV ASDIRECTED [facility] Last Admin: 08/19/16 16:26 Dose: 125 mls/hr Dextrose/Lactated Ringer's (Dextrose 5%-Lactated Ringers) 1,000 mls @ 100 mls/ hr IV ASDIRECTED [facility] Last Admin: 08/20/16 11:02 Dose: 100 mls/hr Cefoxitin Sodium 2 gm/ Sodium (Chloride) 50 mls @ 100 mls/hr IV ONCALL ONE Stop: 08/20/16 10:59 Last Admin: 08/20/16 11:50 Dose: 100 mls/hr Sodium Chloride (Normal Saline) Confirm Administered Dose 1,000 mls @ as directed .ROUTE .[facility] ONE Stop: 08/20/16 13:35 Dextrose/Lactated Ringer's (Dextrose 5%-Lactated Ringers) 1,000 mls @ 200 mls/ hr IV ASDIRECTED [facility] Stop: 08/21/16 17:59 Last Admin: 08/21/16 17:09 Dose: 200 mls/hr Cefoxitin Sodium 2 gm/ Sodium (Chloride) 50 mls @ 100 mls/hr IV Q6H [facility] Last Admin: 08/21/16 01:54 Dose: 100 mls/hr Dextrose/Lactated Ringer's (Dextrose 5%-Lactated Ringers) 1,000 mls @ 150 mls/ hr IV ASDIRECTED [facility] Last Admin: 08/22/16 21:02 Dose: 150 mls/hr Ampicillin Sodium/Sulbactam (Sodium 3 gm/ Sodium Chloride) 100 mls @ 200 mls/ hr IV Q6H [facility] Last Admin: 08/21/16 08:30 Dose: 200 mls/hr Magnesium Sulfate 2 gm/ Premix 50 mls @ 25 mls/hr IV Q6HR [facility] Stop: 08/24/16 05:59 Last Admin: 08/24/16 03:38 Dose: 25 mls/hr Lidocaine HCl (Xylocaine-Mpf 1%) Confirm Administered Dose 2 mls @ as directed .ROUTE .[facility] ONE Stop: 08/22/16 07:50 Dextrose/Lactated Ringer's (Dextrose 5%-Lactated Ringers) 1,000 mls @ 80 mls/ hr IV ASDIRECTED [facility] Last Admin: 08/23/16 15:13 Dose: 80 mls/hr Potassium Chloride 20 meq/Lidocaine HCl 2 ml/ Sodium Chloride 112 mls @ 56 mls/ hr IV Q2H [facility] Stop: 08/24/16 12:59 Last Admin: 08/24/16 12:35 Dose: 56 mls/hr Dextrose/Lactated Ringer's (Dextrose 5%-Lactated Ringers) 1,000 mls @ 0 mls/hr IV ASDIRECTED [facility] PRN Reason: KVO Last Admin: 08/24/16 08:42 Dose: 25 mls/hr Potassium Chloride 20 meq/Lidocaine HCl 2 ml/ Sodium Chloride 112 mls @ 56 mls/ hr IV Q2H [facility] Stop: 08/25/16 13:59 Last Admin: 08/25/16 13:30 Dose: 56 mls/hr Lidocaine/Epinephrine (Xylocaine 1% With Epinephrine 1:100,000) Confirm Administered Dose 50 ml .ROUTE .STK-MED ONE Stop: 08/22/16 06:49 Last Admin: 08/22/16 07:59 Dose: 25 ml Magnesium Hydroxide (Milk Of Magnesia) 30 ml PO Q12H PRN PRN Reason: Constipation Magnesium Hydroxide (Milk Of Magnesia) 30 ml PO ONETIME ONE Stop: 08/24/16 08:01 Last Admin: 08/24/16 08:36 Dose: 30 ml Melatonin (Melatonin) 4.5 mg PO BEDTIME [facility] Last Admin: 08/19/16 20:09 Dose: 4.5 mg Meropenem (Merrem) Confirm Administered Dose 500 mg .ROUTE .STK-MED ONE Stop: 08/20/16 12:30 Last Admin: 08/20/16 12:34 Dose: 500 mg Meropenem (Merrem) Confirm Administered Dose 500 mg .ROUTE .STK-MED ONE Stop: 08/22/16 06:49 Last Admin: 08/22/16 07:40 Dose: 500 mg Naloxone HCl (Narcan) 0.1 mg IVPUSH Q5M PRN PRN Reason: Respiratory Distress Neostigmine Methylsulfate (Neostigmine) Confirm Administered Dose 5 mg .ROUTE .STK-MED ONE Stop: 08/20/16 09:20 Ondansetron HCl (Zofran) Confirm Administered Dose 4 mg .ROUTE .STK-MED ONE Stop: 08/20/16 09:20 Oxycodone HCl (Oxycodone) 5 mg PO Q4H PRN PRN Reason: Pain (moderate 4-6) Last Admin: 08/19/16 20:07 Dose: 5 mg Pantoprazole Sodium (Protonix Iv) 40 mg IV Q24H [facility] Last Admin: 08/24/16 17:37 Dose: 40 mg Polyethylene Glycol (Miralax) 17 gm PO DAILY PRN PRN Reason: Constipation Potassium Chloride (Potassium Chloride Solution) 40 meq PO ONETIME ONE Stop: 08/24/16 09:01 Last Admin: 08/24/16 08:36 Dose: 40 meq Propofol (Diprivan 20 Ml) Confirm Administered Dose 200 mg .ROUTE .STK-MED ONE Stop: 08/20/16 09:20 Propofol (Diprivan 20 Ml) Confirm Administered Dose 200 mg .ROUTE .STK-MED ONE Stop: 08/22/16 07:42 Rocuronium [place] (Zemuron) Confirm Administered Dose 50 mg .ROUTE .STK-MED ONE Stop: 08/20/16 09:20 Rocuronium [place] (Zemuron) Confirm Administered Dose 50 mg .ROUTE .STK-MED ONE Stop: 08/20/16 14:52 Senna/Docusate Sodium (Senna Plus) 1 tab PO BID [facility] Last Admin: 08/20/16 09:03 Dose: Not Given Succinylcholine Chloride (Succinylcholine In Ns Pf) Confirm Administered Dose 200 mg .ROUTE .STK-MED ONE Stop: 08/20/16 09:20 Tamsulosin HCl (Flomax) 0.4 mg PO PCBRK [facility] Last Admin: 08/20/16 09:02 Dose: Not Given - Exam Quality Assessment: supplemental oxygen. No: urine catheter General: alert, oriented, cooperative, no acute distress HEENT: Scleral icterus Lungs: Clear to auscultation, Normal respiratory effort Cardiovascular: Regular Rate, Irregular Rhythm Abdomen: soft, no distension Extremities: no cyanosis, edema (pitting ankle edema) Skin: warm, dry Psy/Mental Status: alert, normal affect - Problem List Review Problem List Initiated/Reviewed/Updated: Yes - My Orders Last 24 Hours: My Active Orders 08/26/16 07:30 Pantoprazole [ProTONIX] 40 mg PO ACBREAKFAST 08/26/16 08:07 Cardiac Monitoring Discontinue [RC] Click to Edit 08/26/16 10:15 Furosemide [Lasix] 40 mg IVPUSH Q6H 08/27/16 08:00 Furosemide [Lasix] 40 mg IVPUSH ONETIME ONE - Plan Plan:: Assessment and Plan - Irregular tachycardia - multiple PACs and some PVCs noted on telemetry. Still having some PACs but doing dramatically better. Diuresis seems to be helping as well. -Continue diuresis with 40 mg twice today and in the morning, then reassess -Recheck potassium in the morning -Continue Low-dose beta jean indefinitely -Discontinue telemetry Unresectable pancreatic cancer - patient is planning to visit with the oncologist in [place] prior to additional management recommendations. Thank you for the interesting consultation and allowing me to be involved in [facility]. I will continue to follow along during the acute phase of the hospital stay. Denyn Davis M.D.
[2016-08-26] MEDS: Furosemide 40 MG/4 ML VIAL IVPUSH SCH ×2 (11:25→17:00)
[2016-08-26] MEDS: fentaNYL 25 MCG/HR Transdermal Patch TRDERM SCH (12:38)
[2016-08-26] MEDS: Melatonin 3 MG Tab PO SCH (20:28)
[2016-08-27] MEDS: HYDROmorphone 2 MG Tab PO PRN ×3 (01:21→19:44)
[2016-08-27] MEDS ORDERED: Furosemide 40 MG/4 ML VIAL IVPUSH ONE (08:00)
[2016-08-27] MEDS: FENTANYL PATCH CHECK TOP SCH ×2 (08:59→22:04)
[2016-08-27] MEDS ORDERED: Magnesium Hydroxide 400 MG/5 ML Susp 30 ML Cup PO PRN (09:07)
[2016-08-27] MEDS: Potassium Chloride 10 MEQ Cap.ER PO SCH ×2 (09:17→22:01)
[2016-08-27] MEDS: Pantoprazole 40 MG Tab.CR PO SCH (09:17)
[2016-08-27] MEDS: Metoprolol Tartrate 25 MG Tab PO SCH ×2 (09:17→22:01)
--- NOTE | 2016-08-27 10:54 | PCM.PN ---
- General Info Date of Service: 08/27/16 Functional Status: Reports: pain controlled, tolerating diet, ambulating - Review of Systems General: Reports: Weakness Gastrointestinal: Reports: Abdominal pain Systems Review Comment:: No acute events overnight. Is off supplemental oxygen. Pain is very well- controlled. Appetite and strength are slowly improving. - Patient Data Vitals - most recent: Last Vital Signs Temp 37.3 C 08/27/16 07:30 Pulse 107 H 08/27/16 09:17 Resp 18 08/27/16 07:30 BP 140/82 08/27/16 09:17 Pulse Ox 97 08/27/16 07:30 Weight - most recent: 77.2 kg I&O - last 24 hours: Intake & Output 08/26/16 08/27/16 08/27/16 22:59 06:59 14:59 Intake Total 240 Output Total 6801 968 350 Balance -3782 -674 -909 Lab Results last 24 hrs: Laboratory Results - last 24 hr 08/27/16 08/27/16 Range/Units 04:40 04:40 WBC 10.9 (4.5-11.0) K/uL RBC 3.52 L (4.30-5.90) M/uL Hgb 10.4 L (12.0-15.0) g/dL Hct 32.1 L (40.0-54.0) % MCV 91 (80-98) fL MCH 30 (27-31) pg MCHC 32 (32-36) % Plt Count 199 (150-400) K/uL Sodium 141 (140-148) mmol/L Potassium 4.3 (3.6-5.2) mmol/L Chloride 101 (100-108) mmol/L Carbon Dioxide 35 H (21-32) mmol/L Anion Gap 9.3 (5.0-14.0) mmol/L BUN 40 H (7-18) mg/dL Creatinine 2.3 H (0.8-1.3) mg/dL Est Cr Clr Drug Dosing 24.78 mL/min Estimated GFR (MDRD) 27 L (>60) Glucose 124 H (74-106) mg/dL Calcium 8.1 L (8.5-10.1) mg/dL Phosphorus 3.6 (2.5-4.9) mg/dL Magnesium 1.9 (1.8-2.4) mg/dL Total Bilirubin 6.5 H (0.2-1.0) mg/dL AST 88 H (15-37) U/L ALT 200 H (12-78) U/L Alkaline Phosphatase 271 H (46-116) U/L Total Protein 6.6 (6.4-8.2) g/dL Albumin 2.2 L (3.4-5.0) g/dL Globulin 4.4 H (2.3-3.5) g/dL Albumin/Globulin Ratio 0.5 L (1.2-2.2) Med Orders - Current: Current Medications Fentanyl (Duragesic) 25 mcg TRDERM Q72H [facility] Last Admin: 08/26/16 12:38 Dose: 25 mcg Hydromorphone HCl (Dilaudid) 2 - 4 mg PO Q4H PRN PRN Reason: Pain Last Admin: 08/27/16 01:21 Dose: 4 mg Hydroxyzine HCl (Vistaril) 100 mg IM Q4H PRN PRN Reason: PAIN Magnesium Hydroxide (Milk Of Magnesia) 30 ml PO BID PRN PRN Reason: Constipation Last Admin: 08/27/16 09:18 Dose: 30 ml Melatonin (Melatonin) 3 mg PO BEDTIME [facility] Last Admin: 08/26/16 20:28 Dose: 3 mg Metoprolol Tartrate (Lopressor) 25 mg PO BID [facility] Last Admin: 08/27/16 09:17 Dose: 25 mg Nitroglycerin (Nitrostat) 0.4 mg SL ASDIRECTED PRN PRN Reason: CHEST PAIN Fentanyl Patch Check 1 each TOP BID [facility] Last Admin: 08/27/16 08:59 Dose: Not Given Ondansetron HCl (Zofran) 4 mg IV Q4H PRN PRN Reason: Nausea/Vomiting Pantoprazole Sodium (Protonix) 40 mg PO ACBREAKFAST [facility] Last Admin: 08/27/16 09:17 Dose: 40 mg Potassium Chloride (Potassium Chloride) 30 meq PO BID [facility] Last Admin: 08/27/16 09:17 Dose: 30 meq Senna/Docusate Sodium (Senna Plus) 2 tab PO BEDTIME [facility] Last Admin: 08/26/16 20:28 Dose: 2 tab Sodium Chloride (Saline Flush) 10 ml FLUSH ASDIRECTED PRN PRN Reason: Keep Vein Open Discontinued Medications Hydrocodone Bitart/Acetaminophen ([place] 325-5 Mg) 1 - 2 tab PO Q4H PRN PRN Reason: Pain Last Admin: 08/26/16 04:30 Dose: 2 tab Bisacodyl (Dulcolax) 20 mg PO BID [facility] Last Admin: 08/25/16 21:01 Dose: 20 mg Bupivacaine HCl (Marcaine 0.5%) Confirm Administered Dose 50 ml .ROUTE .STK-MED ONE Stop: 08/22/16 06:49 Last Admin: 08/22/16 07:59 Dose: 25 ml Cefoxitin Sodium (Mefoxin) Confirm Administered Dose 2 gm .ROUTE .STK-MED ONE Stop: 08/20/16 14:29 Dexamethasone (Dexamethasone) Confirm Administered Dose 4 mg .ROUTE .STK-MED ONE Stop: 08/20/16 09:20 Docusate Sodium (Colace) 100 mg PO BID PRN PRN Reason: Constipation Enoxaparin Sodium (Lovenox) 30 mg SUBCUT DAILY [facility] Last Admin: 08/20/16 09:02 Dose: Not Given Fentanyl (Sublimaze) Confirm Administered Dose 250 mcg .ROUTE .STK-MED ONE Stop: 08/20/16 09:19 Fentanyl (Sublimaze) Confirm Administered Dose 250 mcg .ROUTE .STK-MED ONE Stop: 08/20/16 12:36 Finasteride (Proscar) 5 mg PO DAILY [facility] Last Admin: 08/19/16 13:08 Dose: Not Given Finasteride (Proscar) 5 mg PO DAILY [facility] Last Admin: 08/20/16 09:03 Dose: Not Given Furosemide (Lasix) 10 mg IVPUSH ONETIME ONE Stop: 08/22/16 09:01 Last Admin: 08/22/16 10:41 Dose: 10 mg Furosemide (Lasix) 10 mg IVPUSH ONETIME ONE Stop: 08/22/16 14:01 Last Admin: 08/22/16 16:12 Dose: 10 mg Furosemide (Lasix) 20 mg IV Q6H [facility] Stop: 08/23/16 14:31 Last Admin: 08/23/16 14:00 Dose: 20 mg Furosemide (Lasix) 20 mg IVPUSH ONETIME ONE Stop: 08/24/16 07:31 Last Admin: 08/24/16 08:36 Dose: 20 mg Furosemide (Lasix) 20 mg IVPUSH ONETIME ONE Stop: 08/24/16 16:01 Furosemide (Lasix) 40 mg IVPUSH ONETIME ONE Stop: 08/24/16 16:01 Last Admin: 08/24/16 15:21 Dose: 40 mg Furosemide (Lasix) 20 mg IVPUSH ONETIME ONE Stop: 08/25/16 08:01 Last Admin: 08/25/16 09:01 Dose: 20 mg Furosemide (Lasix) 20 mg IVPUSH ONETIME ONE Stop: 08/25/16 14:01 Furosemide (Lasix) 40 mg IVPUSH ONETIME ONE Stop: 08/25/16 14:01 Last Admin: 08/25/16 14:31 Dose: 40 mg Furosemide (Lasix) 40 mg IVPUSH Q6H [facility] Stop: 08/26/16 16:31 Last Admin: 08/26/16 17:00 Dose: 40 mg Furosemide (Lasix) 40 mg IVPUSH ONETIME ONE Stop: 08/27/16 08:01 Last Admin: 08/27/16 09:17 Dose: 40 mg Gadoteridol (Prohance) 15 ml IV .A DIRECTED PRN PRN Reason: RADIOLOGY EXAM Stop: 08/20/16 09:46 Last Admin: 08/19/16 12:04 Dose: 15 ml Glycopyrrolate () Confirm Administered Dose 1 mg .ROUTE .STK-MED ONE Stop: 08/20/16 09:20 Hydromorphone HCl (Dilaudid Liquid Sugar Fortifier 15 Mg In Ns 30 Ml) 0 mg IV ASDIRECTED PRN; Protocol PRN Reason: Pain Last Admin: 08/23/16 13:59 Dose: 15 mg Sodium Chloride (Normal Saline) 1,000 mls @ 250 mls/hr IV ASDIRECTED [facility] Last Admin: 08/18/16 17:32 Dose: 250 mls/hr Sodium Chloride (Normal Saline) 1,000 mls @ 125 mls/hr IV ASDIRECTED [facility] Last Admin: 08/19/16 16:26 Dose: 125 mls/hr Dextrose/Lactated Ringer's (Dextrose 5%-Lactated Ringers) 1,000 mls @ 100 mls/ hr IV ASDIRECTED [facility] Last Admin: 08/20/16 11:02 Dose: 100 mls/hr Cefoxitin Sodium 2 gm/ Sodium (Chloride) 50 mls @ 100 mls/hr IV ONCALL ONE Stop: 08/20/16 10:59 Last Admin: 08/20/16 11:50 Dose: 100 mls/hr Sodium Chloride (Normal Saline) Confirm Administered Dose 1,000 mls @ as directed .ROUTE .[facility] ONE Stop: 08/20/16 13:35 Dextrose/Lactated Ringer's (Dextrose 5%-Lactated Ringers) 1,000 mls @ 200 mls/ hr IV ASDIRECTED [facility] Stop: 08/21/16 17:59 Last Admin: 08/21/16 17:09 Dose: 200 mls/hr Cefoxitin Sodium 2 gm/ Sodium (Chloride) 50 mls @ 100 mls/hr IV Q6H [facility] Last Admin: 08/21/16 01:54 Dose: 100 mls/hr Dextrose/Lactated Ringer's (Dextrose 5%-Lactated Ringers) 1,000 mls @ 150 mls/ hr IV ASDIRECTED [facility] Last Admin: 08/22/16 21:02 Dose: 150 mls/hr Ampicillin Sodium/Sulbactam (Sodium 3 gm/ Sodium Chloride) 100 mls @ 200 mls/ hr IV Q6H [facility] Last Admin: 08/21/16 08:30 Dose: 200 mls/hr Magnesium Sulfate 2 gm/ Premix 50 mls @ 25 mls/hr IV Q6HR [facility] Stop: 08/24/16 05:59 Last Admin: 08/24/16 03:38 Dose: 25 mls/hr Ampicillin Sodium/Sulbactam (Sodium 3 gm/ Sodium Chloride) 100 mls @ 200 mls/ hr IV Q8H [facility] Last Admin: 08/26/16 08:34 Dose: 200 mls/hr Lidocaine HCl (Xylocaine-Mpf 1%) Confirm Administered Dose 2 mls @ as directed .ROUTE .[facility] ONE Stop: 08/22/16 07:50 Dextrose/Lactated Ringer's (Dextrose 5%-Lactated Ringers) 1,000 mls @ 80 mls/ hr IV ASDIRECTED [facility] Last Admin: 08/23/16 15:13 Dose: 80 mls/hr Potassium Chloride 20 meq/Lidocaine HCl 2 ml/ Sodium Chloride 112 mls @ 56 mls/ hr IV Q2H [facility] Stop: 08/24/16 12:59 Last Admin: 08/24/16 12:35 Dose: 56 mls/hr Dextrose/Lactated Ringer's (Dextrose 5%-Lactated Ringers) 1,000 mls @ 0 mls/hr IV ASDIRECTED [facility] PRN Reason: KVO Last Admin: 08/24/16 08:42 Dose: 25 mls/hr Potassium Chloride 20 meq/Lidocaine HCl 2 ml/ Sodium Chloride 112 mls @ 56 mls/ hr IV Q2H [facility] Stop: 08/25/16 13:59 Last Admin: 08/25/16 13:30 Dose: 56 mls/hr Lidocaine/Epinephrine (Xylocaine 1% With Epinephrine 1:100,000) Confirm Administered Dose 50 ml .ROUTE .STK-MED ONE Stop: 08/22/16 06:49 Last Admin: 08/22/16 07:59 Dose: 25 ml Magnesium Hydroxide (Milk Of Magnesia) 30 ml PO Q12H PRN PRN Reason: Constipation Magnesium Hydroxide (Milk Of Magnesia) 30 ml PO ONETIME ONE Stop: 08/24/16 08:01 Last Admin: 08/24/16 08:36 Dose: 30 ml Melatonin (Melatonin) 4.5 mg PO BEDTIME [facility] Last Admin: 08/19/16 20:09 Dose: 4.5 mg Meropenem (Merrem) Confirm Administered Dose 500 mg .ROUTE .STK-MED ONE Stop: 08/20/16 12:30 Last Admin: 08/20/16 12:34 Dose: 500 mg Meropenem (Merrem) Confirm Administered Dose 500 mg .ROUTE .STK-MED ONE Stop: 08/22/16 06:49 Last Admin: 08/22/16 07:40 Dose: 500 mg Naloxone HCl (Narcan) 0.1 mg IVPUSH Q5M PRN PRN Reason: Respiratory Distress Neostigmine Methylsulfate (Neostigmine) Confirm Administered Dose 5 mg .ROUTE .STK-MED ONE Stop: 08/20/16 09:20 Ondansetron HCl (Zofran) Confirm Administered Dose 4 mg .ROUTE .STK-MED ONE Stop: 08/20/16 09:20 Oxycodone HCl (Oxycodone) 5 mg PO Q4H PRN PRN Reason: Pain (moderate 4-6) Last Admin: 08/19/16 20:07 Dose: 5 mg Pantoprazole Sodium (Protonix Iv) 40 mg IV Q24H [facility] Last Admin: 08/24/16 17:37 Dose: 40 mg Polyethylene Glycol (Miralax) 17 gm PO DAILY PRN PRN Reason: Constipation Potassium Chloride (Potassium Chloride Solution) 40 meq PO ONETIME ONE Stop: 08/24/16 09:01 Last Admin: 08/24/16 08:36 Dose: 40 meq Propofol (Diprivan 20 Ml) Confirm Administered Dose 200 mg .ROUTE .STK-MED ONE Stop: 08/20/16 09:20 Propofol (Diprivan 20 Ml) Confirm Administered Dose 200 mg .ROUTE .STK-MED ONE Stop: 08/22/16 07:42 Rocuronium [place] (Zemuron) Confirm Administered Dose 50 mg .ROUTE .STK-MED ONE Stop: 08/20/16 09:20 Rocuronium [place] (Zemuron) Confirm Administered Dose 50 mg .ROUTE .STK-MED ONE Stop: 08/20/16 14:52 Senna/Docusate Sodium (Senna Plus) 1 tab PO BID [facility] Last Admin: 08/20/16 09:03 Dose: Not Given Succinylcholine Chloride (Succinylcholine In Ns Pf) Confirm Administered Dose 200 mg .ROUTE .STK-MED ONE Stop: 08/20/16 09:20 Tamsulosin HCl (Flomax) 0.4 mg PO PCBRK [facility] Last Admin: 08/20/16 09:02 Dose: Not Given - Exam Quality Assessment: No: supplemental oxygen General: alert, oriented, cooperative, no acute distress Neck: supple Lungs: Clear to auscultation, Normal respiratory effort Cardiovascular: Regular Rate, Regular Rhythm Abdomen: soft, no distension Extremities: no edema, no cyanosis Skin: warm, dry - Problem List Review Problem List Initiated/Reviewed/Updated: Yes - Plan Plan:: Assessment and Plan - Irregular tachycardia - multiple PACs and some PVCs noted on telemetry. Still having some PACs but doing dramatically better. Diuresis seems to be helping as well. -No additional diuresis necessary, appears euvolemic -Recheck potassium in the morning -Continue Low-dose beta jean indefinitely -Discontinue telemetry Unresectable pancreatic cancer - patient is planning to visit with the oncologist in [place] prior to additional management recommendations. Thank you for the interesting consultation and allowing me to be involved in [facility]. I will continue to follow along during the acute phase of the hospital stay. Denny Davis M.D.
--- NOTE | 2016-08-27 16:33 | DISCH ---
ADMISSION DIAGNOSES: Abdominal pain, elevated liver enzymes, jaundice, chronic kidney disease stage 3, and hyperplasia of the prostate. DISCHARGE DIAGNOSES: 1. 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 Date of surgery 08/20/2016. 2. Delayed primary closure 08/22/2016. 3. Postop anemia requiring 3 units of packed red blood cells. 4. Irregular heart rate, tachycardia, multiple premature atrial contractions, and premature ventricular contractions, medically treated. 5. Pathology report confirmed pancreatic cancer. HISTORY: Edgard Genao is an 81-year-old male who presented to the emergency room with weakness, anorexia, pruritus, and severe jaundice. After preoperative evaluation and discussion of possible risks and possible complications, he wished to proceed with surgical procedure. HOSPITAL COURSE: Edgard had his surgery on 08/20/2016 after an MRCP and CAT scans. He had delayed primary closure 08/22/2016. Hemoglobin was evaluated daily. Throughout his hospitalization, he did receive 3 units of packed red blood cells. On 08/24/2016, he developed some tachycardia and irregular heart rate. He was seen by the hospitalist and started on metoprolol tartrate (Lopressor 25 mg p.o. b.i.d. and this resolved). Edgard's appetite gradually increased. He was having bowel movements after bowel stimulation and his liver function tested decrease slightly bilirubin 6.5 with a hemoglobin of 10.4. Edgard will be discharged on 08/28/2016. He will be going to [facility]. OBJECTIVE: VITAL SIGNS: Edgard is an 81-year-old male. Height 5 feet 8.5 inches, weight is 170 pounds; color jaundice; TPR is 99.4, 99, and 18; and blood pressure 136/75. HEENT: Negative. NECK: Supple. HEART: Regular rate and rhythm. LUNGS: Clear. ABDOMEN: Trino intact. Incision looks good. He has 3 STARLA drains at the time of this dictation. STARLA drain #1 has put out 50 mL and it is slightly milky good in color; more of sediment is seen. Two and three pink and serous. Abdominal binder has been on. EXTREMITIES: Without peripheral edema. DISPOSITION: Discharge to [facility]. CONDITION: Stable. FOLLOWUP: He is to follow up with Gary Short MD; 09/01/2016 at 10:00 a.m. and have a CBC and CMP prior to appointment. The next appointment is with Oncology Dr. Kerr on Tuesday August 30, 2016 at 11:11 a.m. at [facility], [place]. HOME MEDICATIONS: Include Dilaudid 2 mg one to two every 4 hours p.r.n. pain #50, metoprolol, Lopressor 25 mg p.o. b.i.d. #60, and Protonix 40 mg once daily #30. He is to resume his home medications; Flomax 0.4 p.o. once daily; multivitamin once daily; omega-3 once daily; Proscar 5 mg daily; Nitrostat 0.4 mg sublingual as directed, and melatonin 5 mg at bedtime. DIET: As tolerated. Drink 8 to 10 glasses of water a day. DISCHARGE INSTRUCTIONS: No lifting greater than 10 pounds for 6 weeks. Walk short distance in 6 to 8 times daily. May shower. Keep operative site clean and dry. Wear abdominal binder for 4 weeks and then as tolerated. Notify provider if any fever, increased pain, nausea, or vomiting. Use incentive spirometer 10 times every hour while awake.
[2016-08-27] MEDS: Melatonin 3 MG Tab PO SCH (22:01)
[2016-08-28] MEDS: HYDROmorphone 2 MG Tab PO PRN ×3 (00:04→08:06)
[2016-08-28 07:22] VITALS: BP 176/85
[2016-08-28] MEDS: Pantoprazole 40 MG Tab.CR PO SCH (07:48)
[2016-08-28] MEDS: Metoprolol Tartrate 25 MG Tab PO SCH (08:04)
[2016-08-28] MEDS: Potassium Chloride 10 MEQ Cap.ER PO SCH (08:05)
[2016-08-28] MEDS: FENTANYL PATCH CHECK TOP SCH (08:05)
--- NOTE | 2016-08-29 15:20 | DISCH ---
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 SECONDARY DIAGNOSES: 1. Chronic renal insufficiency. 2. Prostatic hyperplasia. OPERATIVE PROCEDURE: 1. On 08/20 is exploratory laparotomy with a formation of Silverio-en-Y hepaticojejunostomy, cholecystectomy, and transduodenal core and fine-needle aspiration biopsies. 2. On 08/22, delayed primary closure of abdominal incision. SUMMARY: This is an 81-year-old male presenting with pancreatic biliary obstruction. Initial CT and subsequent MRI of the abdomen confirmed a mass in the head of the pancreas. This was felt to be potentially resectable based on preoperative imaging; however, at the time of exploration in addition to encasement of the portal vein and superior mesenteric vein which in itself would not make this nonresectable. There was also adherence to the hepatic artery with no dissection plane able to be established in that level. The patient was not on any imminent danger of duodenal obstruction, so a cholecystectomy and hepaticojejunostomy were completed. His bilirubin has progressively come down from around 20 to 6.5, dropping each day, that has been measured since surgery. Otherwise, the patient is tolerating regular diet at this point, and the plan will be to have him meet with Medical Oncology this coming Tuesday in [place]. We will see him back this Tuesday. Medications include same as on admission plus Dilaudid 2-4 mg q.4 hours p.r.n. pain, #50. He will be [facility] a jail, but I suspect will be able to be getting home fairly soon thereafter.
== END 2016-08-28 10:50 | DRG 409 ==
LOC: JP.ED 15:14 → JP.MS 18:33 → JP.ICU 08-20 16:52 → JP.2SS 08-22 09:11
PROVIDERS: ADMIT Hospitalist; ATTEND Hospitalist
PROC: 30253N1 (ICD-10-PCS; 2016-08-19)
PROC: 0F1 Hepatobiliary System and Pancreas, Bypass (ICD-10-PCS; principal; 2016-08-20)
PROC: 0FT40ZZ Resection of Gallbladder, Open Approach (ICD-10-PCS; 2016-08-20)
PROC: 0FBG3ZX Excision of Pancreas, Percutaneous Approach, Diagnostic (ICD-10-PCS; 2016-08-20)
PROC: 0H87XZZ Division of Abdomen Skin, External Approach (ICD-10-PCS; 2016-08-22)
DX: R17 Unspecified jaundice (principal); R94.5 Abnormal results of liver function studies; R10.9 Unspecified abdominal pain; C25.9 Malignant neoplasm of pancreas, unspecified; D62 Acute posthemorrhagic anemia; N17.9 Acute kidney failure, unspecified; R00.0 Tachycardia, unspecified; N40.0 Benign prostatic hyperplasia without lower urinary tract symptoms; N18.3 Chronic kidney disease, stage 3 (moderate); Z87.19 Personal history of other diseases of the digestive system; Z48.1 Encounter for planned postprocedural wound closure
CPT/HCPCS: 36415; 74176; 76705; 82140; 82150; 83690; 85651; 85730; 96360; 99285 ×2; J7040; 36430; 74183; 74183-26; 80053; 82378; 83735; 83880; 84100; 84132; 85025; 85027; 85610; 86301; 86850; 86900; 86901; 86920; 86922; 88112; 88304; 88305; 88307; 88331; 88342; 93005; 94762; 96361; A9270-GY; A9576; C9113; J0295; J0694; J1100; J1170; J1650; J1940; J2185; J2405; J2704; J3010; J3475; J3480; J7030; J7042; J7050; P9016

== ENCOUNTER 2016-10-21 10:48 | Day surgery (SDC) | payer MEDICARE, OTHER ==
[~2016-10-21 10:48] MED LIST: Bupivacaine 0.5% 50 ML MDV ONE; Dextrose 5%-Lactated Ringers 1,000 ML IV SCH; Lidocaine 1% with EPINEPHrine 1:100,000 50 ML MDV ONE; Linezolid 600 MG in Premix Bag 1 BAG IV ONE
[2016-10-21] MEDS ORDERED: Dextrose 5%-Lactated Ringers 1,000 ML IV SCH (11:30)
[2016-10-21] MEDS ORDERED: Linezolid 600 MG in Premix Bag 1 BAG IV ONE (12:00)
[2016-10-21] MEDS ORDERED: Propofol 200 MG/20 ML SDV ONE (12:31)
[2016-10-21] MEDS ORDERED: fentaNYL 100 MCG/2 ML SDV ONE (12:32)
[2016-10-21] MEDS ORDERED: Midazolam 1 MG/ML 2 ML SDV ONE (12:32)
[2016-10-21 14:06] VITALS: BP 155/89
--- NOTE | 2016-10-22 18:54 | OR ---
DATE OF PROCEDURE: 10/21/2016 PREOPERATIVE DIAGNOSIS: Indications for central venous access. POSTOPERATIVE DIAGNOSIS: Indications for central venous access. OPERATIVE PROCEDURE: Placement of Bard port via left subclavian vein approach ([id number]). ANESTHESIA: Local plus IV sedation. INSECTICIDE SPRAYER: MANOLO Rosado student. INDICATIONS FOR PROCEDURE: This is an 81-year-old who is beginning a course of chemotherapy for pancreatic carcinoma to facilitate treatment. He is to undergo a port placement. Potential risks including bleeding, infection, injury to vasculature or lung, possible problems with the port becoming infected or occluded were reviewed and the patient wishes to proceed. DETAILS OF PROCEDURE: The patient was taken to the operating room and placed in a supine position. IV sedation was administered, after which the left subclavian area was anesthetized with 1% lidocaine. The left subclavian vein was then cannulated and guidewire manipulated from that point into the superior vena cava. Some additional local was then injected and a transverse infraclavicular incision was made and carried down through the skin and subcutaneous tissue and pectoralis major fascia. A pocket underneath the fascia was then bluntly constructed. The Bard PowerPort was then placed into the pocket. The catheter was cut such that the tip would lie in the area of the superior vena cava and right atrial junction and the Bard port catheter was then delivered by means of the introducer and peel-away catheter. Fluoroscopic evaluation showed good catheter placement and there were no complications. The incision was closed with some 3-0 and 4-0 Vicryl stitch deep and a 4- 0 Vicryl subcuticular stitch. The port was then aspirated and then once again flushed with heparinized saline. Good in and outflow was confirmed and the patient was taken to the recovery room in satisfactory condition. There were no evident complications. Gary Short MD /[id number]
== END 2016-10-21 14:30 | disposition home or self-care (01) ==
LOC: JP.SDS 10:48
PROVIDERS: ATTEND Surgery
DX: Z45.2 Encounter for adjustment and management of vascular access device (principal); C25.9 Malignant neoplasm of pancreas, unspecified; E78.5 Hyperlipidemia, unspecified; N18.9 Chronic kidney disease, unspecified
CPT/HCPCS: 36558; C1788; J1642; J2020; J2250; J2704; J3010; J7042; 77001

== ENCOUNTER 2017-03-14 12:31 | Inpatient (IN) | payer MEDICARE, OTHER ==
--- NOTE | 2017-03-14 13:05 | EDM.PDOC ---
ED HPI GENERAL MEDICAL PROBLEM - General Chief Complaint: Abdominal Pain Stated Complaint: ABDOMINAL PAIN Time Seen by Provider: 03/14/17 13:05 Source of Information: Reports: Patient History Limitations: Reports: No Limitations - History of Present Illness INITIAL COMMENTS - FREE TEXT/NARRATIVE: pt arrived with a painful distended abdoman. He has not been vomiting but he has alot of reflux. He also has a painful tender left arm. he has been taking antibiotics for that. Onset: Gradual Duration: Day(s):, Other ( the abdoman distention is alot worse. ) Location: Reports: Abdomen, Upper Extremity, Left Associated Symptoms: Reports: No Other Symptoms Abdomen Pain Score (Numeric/FACES): 8 - Related Data Allergies Allergy/AdvReac Type Severity Reaction Status Date / Time No Known Allergies Allergy Verified 03/14/17 13:03 Home Meds: Home Meds Multivitamin with Minerals [Multiple Vitamin] 1 each PO DAILY 11/19/13 [History] [place]-3/DHA/Epa/Fish Oil [Fish Oil 1,000 mg Softgel] 1 each PO DAILY 11/19/13 [ History] Nitroglycerin [Nitrostat] 0.4 mg SL ASDIRECTED 07/03/15 [History] Melatonin 5 mg PO BEDTIME PRN 08/19/16 [History] Cholecalciferol (Vitamin D3) [Vitamin D3] 1 tab PO DAILY 10/15/16 [History] Docusate Sodium [Colace Clear] 50 mg PO BID 10/15/16 [History] Prochlorperazine Maleate [Compazine] 10 mg PO ASDIRECTED PRN 10/15/16 [History] Hydrocodone/Acetaminophen [Hydrocodon-Acetaminophn 10-325] 1 tab PO QID PRN [History] Past Medical History HEENT History: Reports: Allergic Rhinitis, Hard of Hearing, Impaired Vision Other HEENT History: wears glasses Cardiovascular History: Reports: Arrhythmia Gastrointestinal History: Reports: Chronic Constipation, Diverticulosis, Gastritis, GI Bleed, Other (See Below) Other Gastrointestinal History: vitaticulosis Genitourinary History: Reports: BPH, Prostate Disorder Musculoskeletal History: Reports: Arthritis Other Musculoskeletal History: collar bone Neurological History: Reports: None Hematologic History: Reports: Blood Transfusion(s) Oncologic (Cancer) History: Reports: Pancreatic - Infectious Disease History Infectious Disease History: Reports: Chicken Pox - Past Surgical History HEENT Surgical History: Reports: Tonsillectomy Cardiovascular Surgical History: Reports: None GI Surgical History: Reports: Cholecystectomy, Colonoscopy, Other (See Below) Other GI Surgeries/Procedures: gastrojejunostomy resection r/t pancreatic adenocarcinoma Male Surgical History: Reports: TURP-Transurethral Resection of Prostate Neurological Surgical History: Reports: Spinal Fusion Musculoskeletal Surgical History: Reports: Arthroscopic Knee, Shoulder Surgery Oncologic Surgical History: Reports: None Dermatological Surgical History: Reports: None Social & Family History - Family History Family Medical History: Noncontributory - Tobacco Use Smoking Status *Q: Never Smoker Second Hand Smoke Exposure: No - Caffeine Use Caffeine Use: Reports: None - Recreational Drug Use Recreational Drug Use: No ED ROS GENERAL - Review of Systems Review Of Systems: See Below Constitutional: Reports: Weakness, Fatigue, Other (pt could bearly get in a car to come in today because of weakness. ) HEENT: Reports: No Symptoms Respiratory: Reports: Shortness of Breath Cardiovascular: Reports: No Symptoms Endocrine: Reports: No Symptoms GI/Abdominal: Reports: Abdominal Pain, Decreased Appetite, Other ( alot of reflux and abdoman is very tight. ) : Reports: No Symptoms, Other ( When the abdoman became swollen his penis became swollen. ) Musculoskeletal: Reports: No Symptoms Skin: Reports: No Symptoms Neurological: Reports: No Symptoms Psychiatric: Reports: No Symptoms ED EXAM, GI/ABD - Physical Exam Exam: See Below Text/Narrative:: pt arrived with a history of his abdoman getting more and more distended, He has been having stools. He has not been vomiting but he has been having reflux. Exam Limited By: No Limitations General Appearance: Alert, Moderate Distress, Other ( pupils equal and reactive. ) Ears: Normal TMs Nose: Normal Inspection Throat/Mouth: Normal Inspection Head: Atraumatic Neck: Normal Inspection Respiratory/Chest: No Respiratory Distress Cardiovascular: Regular Rate, Rhythm GI/Abdominal Exam: Distended, Tender (Male) Exam: Deferred, Other (pt has a very swollen penis) Rectal (Males) Exam: Deferred Back Exam: Normal Inspection Extremities: Pedal Edema Neurological: Alert, Oriented, Normal Cognition Psychiatric: Normal Affect Skin Exam: Pallor Course - Vital Signs Last Recorded V/S: Last Vital Signs Temp 37.2 C 03/14/17 14:00 Pulse 78 03/14/17 14:00 Resp 14 03/14/17 14:00 BP 145/70 H 03/14/17 14:00 Pulse Ox 97 03/14/17 14:00 - Orders/Labs/Meds Orders: Active Orders 24 hr Category Date Time Status US Guidance Paracentesis NC [US] Stat Exams 03/14/17 13:26 Ordered RED BLOOD CELLS LP [BBK] Stat Lab 03/14/17 15:10 Ordered TYPE AND SCREEN [BBK] Stat Lab 03/14/17 15:10 Ordered Sodium Chloride 0.9% [Normal Saline] 1,000 ml Med 03/14/17 15:15 Ordered IV ASDIRECTED Medication Orders Sodium Chloride (Normal Saline) 1,000 mls @ 100 mls/hr IV ASDIRECTED MIKE Labs: Laboratory Tests 03/14/17 03/14/17 03/14/17 Range/Units 13:15 13:15 13:45 WBC 7.6 (4.5-11.0) K/uL RBC 2.67 L (4.30-5.90) M/uL Hgb 8.3 L D (12.0-15.0) g/dL Hct 25.7 L (40.0-54.0) % MCV 96 (80-98) fL MCH 31 (27-31) pg MCHC 32 (32-36) % Plt Count 188 (150-400) K/uL Neut % (Auto) 79 H (36-66) % Lymph % (Auto) 10 L (24-44) % [place] % (Auto) 11 H (2-6) % Eos % (Auto) 0 L (2-4) % Baso % (Auto) 0 (0-1) % Sodium 136 L (140-148) mmol/L Potassium 4.6 (3.6-5.2) mmol/L Chloride 100 (100-108) mmol/L Carbon Dioxide 26 (21-32) mmol/L Anion Gap 14.6 H (5.0-14.0) mmol/L BUN 34 H (7-18) mg/dL Creatinine 2.4 H (0.8-1.3) mg/dL Est Cr Clr Drug Dosing 23.35 mL/min Estimated GFR (MDRD) 26 L (>60) Glucose 129 H (74-106) mg/dL Calcium 8.6 (8.5-10.1) mg/dL Total Bilirubin 0.5 D (0.2-1.0) mg/dL AST 60 H (15-37) U/L ALT 46 D (12-78) U/L Alkaline Phosphatase 103 (46-116) U/L Total Protein 6.1 L (6.4-8.2) g/dL Albumin 2.7 L (3.4-5.0) g/dL Globulin 3.4 (2.3-3.5) g/dL Albumin/Globulin Ratio 0.8 L (1.2-2.2) Urine Color Yellow Urine Appearance Clear Urine pH 5.0 (4.5-8.0) Ur Specific Sutton 1.020 (1.008-1.030) Urine Protein Trace (NEGATIVE) mg/dL Urine Glucose (UA) Normal (NEGATIVE) mg/dL Urine Ketones 15 H (NEGATIVE) mg/dL Urine Occult Blood Negative (NEGATIVE) Urine Nitrite Negative (NEGAITVE) Urine Bilirubin Small (NEGATIVE) Urine Urobilinogen Normal (NORMAL) mg/dL Ur Leukocyte Esterase Negative (NEGATIVE) Urine RBC 0-5 (0-5) Urine WBC 0-5 (0-5) Ur Epithelial Cells Few Amorphous Sediment Not seen Urine Bacteria Few Urine Mucus Few Meds: Medications Generic Name Dose Route Start Last Admin Trade Name Freq PRN Reason Stop Dose Admin Sodium Chloride 1,000 mls @ 100 mls/hr 03/14/17 15:15 Normal Saline IV ASDIRECTED MIKE Discontinued Medications Generic Name Dose Route Start Last Admin Trade Name Freq PRN Reason Stop Dose Admin Hydromorphone HCl 0.5 mg 03/14/17 14:39 03/14/17 14:43 Dilaudid IVPUSH 03/14/17 14:40 0.5 mg ONETIME ONE Administration - Re-Assessments/Exams Free Text/Narrative Re-Assessment/Exam: 03/14/17 15:17 pt arrived with a distended abdoman. He has some acetes present. He also has distended bowel -- looking like a small bowel obstruction. His creatnine is elevated but this is chronic for him. He his cat scan revealed a mass in the pancreas that is known. His us of the arm show that he has a clot from the left side extending into the subclavian. Departure - Departure Time of Disposition: 15:24 Disposition: Admitted As Inpatient 66 Condition: Fair Clinical Impression: Pancreatic cancer - Discharge Information Referrals: Bora Raygoza MD [Primary Care Provider] - Forms: ED Department Discharge Care Plan Goals: admit to the hosp-- Dr yuen. - My Orders Last 24 Hours: My Active Orders 03/14/17 13:26 US Guidance Paracentesis NC [US] Stat 03/14/17 15:10 RED BLOOD CELLS LP [BBK] Stat TYPE AND SCREEN [BBK] Stat 03/14/17 15:15 Sodium Chloride 0.9% [Normal Saline] 1,000 ml IV ASDIRECTED - Assessment/Plan Last 24 Hours: My Active Orders 03/14/17 13:26 US Guidance Paracentesis NC [US] Stat 03/14/17 15:10 RED BLOOD CELLS LP [BBK] Stat TYPE AND SCREEN [BBK] Stat 03/14/17 15:15 Sodium Chloride 0.9% [Normal Saline] 1,000 ml IV ASDIRECTED
--- NOTE | 2017-03-14 13:40 | CR ---
Chest 2V INDICATION: sob FINDINGS: Comparison 10/15/2014. New left Port-A-Cath with tip in the SVC. Shallow inspiration. New sm all left pleural effusion. No focal consolidation.
--- NOTE | 2017-03-14 14:26 | US ---
VL Duplex Upr Ext Veins Ltd Lt INDICATION: left arm swelling FINDINGS: Acute DVT in the left internal jugular, brachiocephalic, subclavian, and axillary veins. Th e left brachial, cephalic, and basilic veins are patent and negative for thrombus. IMPRESSION: Left upper extremity positive for DVT.
[2017-03-14] MEDS ORDERED: HYDROmorphone 0.5 MG/0.5 ML Syringe IVPUSH ONE (14:39)
--- NOTE | 2017-03-14 14:44 | CT ---
Abdomen Pelvis wo Cont Total DLP 910 mGycm. INDICATION: abdominal distention COMPARISON: None. FINDINGS: Small left pleural effusion. Moderate ascites throughout the abdomen. Small upper anterior abdominal wall hernia containing nonobstructed small and large bowel. Dilated loops of small bowel me asuring up to 4 cm with fecalization of small bowel contents. Transition point is difficult to visual ize without oral or IV contrast. Pneumobilia. Known pancreatic mass with atrophy of the pancreatic austin dy and tail with dilatation of the pancreatic duct. Degenerative changes in the spine. Exam otherwise unremarkable. IMPRESSION: 1. Likely small bowel obstruction. Consider administration of oral contrast and repeat CT or plain fi lms in 2 to 3 hours. 2. Known pancreatic mass. 3. Moderate ascites. 4. Small left pleural effusion.
[2017-03-14] MEDS ORDERED: Sodium Chloride 0.9% 1,000 ML IV SCH (15:15)
--- NOTE | 2017-03-14 16:03 | PCM.HP ---
H&P History of Present Illness - General Date of Service: 03/14/17 Admit Problem/Dx: Admission Diagnosis/Problem Admission Diagnosis/Problem Small bowel obstruction Source of Information: Patient, Provider History Limitations: Reports: No Limitations - History of Present Illness Initial Comments - Free Text/Narative: Edgard presented to the emergency room with increasing abdominal distention and abdominal pain as well as left arm swelling and pain. He reports symptoms started about 10 days ago and have progressed since that time. Initially his abdominal distention and pain were relatively mild. Over the past week they have become fairly bothersome. He has lost his appetite and has had very little intake in the past 2 days. He reports moderate crampy abdominal pain that gets worse when he eats. Pain pills to help little bit. Pain is usually better in the morning after he wakes up but worsens when he gets up and tries to eat anything. He has never had pain like this in the past. He does not report nausea or vomiting but does report a recent increase in his heartburn symptoms. He has continued to past small quantities of soft or liquid stool. Today his abdomen was also distended is patent fit. He also reports left arm swelling, redness and warmth. He was started on antibiotics with concerns that he had an infection but despite this the things have gotten worse. He does not report dysphasia. No complaints of shortness of breath or chest pain. No lower extremity edema. Workup in the emergency room revealed a left upper extremity DVT involving the axillary vein. Also noted was ascites and a possible small bowel obstruction on CT scan. He has acute on chronic kidney injury. He will be admitted for management of the above issues. Abdomen Pain Score (Numeric/FACES): 4 - Related Data Allergies/Adverse Reactions: Allergies Allergy/AdvReac Type Severity Reaction Status Date / Time No Known Allergies Allergy Verified 03/14/17 13:03 Home Medications: Home Meds Multivitamin with Minerals [Multiple Vitamin] 1 each PO DAILY 11/19/13 [History] [place]-3/DHA/Epa/Fish Oil [Fish Oil 1,000 mg Softgel] 1 each PO DAILY 11/19/13 [ History] Nitroglycerin [Nitrostat] 0.4 mg SL ASDIRECTED 07/03/15 [History] Melatonin 5 mg PO BEDTIME PRN 08/19/16 [History] Cholecalciferol (Vitamin D3) [Vitamin D3] 1 tab PO DAILY 10/15/16 [History] Docusate Sodium [Colace Clear] 50 mg PO BID 10/15/16 [History] Prochlorperazine Maleate [Compazine] 10 mg PO ASDIRECTED PRN 10/15/16 [History] Hydrocodone/Acetaminophen [Hydrocodon-Acetaminophn 10-325] 1 tab PO QID PRN [History] Past Medical History HEENT History: Reports: Allergic Rhinitis, Hard of Hearing, Impaired Vision Other HEENT History: wears glasses Cardiovascular History: Reports: Arrhythmia Gastrointestinal History: Reports: Chronic Constipation, Diverticulosis, Gastritis, GI Bleed, Other (See Below) Other Gastrointestinal History: vitaticulosis Genitourinary History: Reports: BPH, Prostate Disorder Musculoskeletal History: Reports: Arthritis Other Musculoskeletal History: collar bone Neurological History: Reports: None Hematologic History: Reports: Blood Transfusion(s) Oncologic (Cancer) History: Reports: Pancreatic - Infectious Disease History Infectious Disease History: Reports: Chicken Pox - Past Surgical History HEENT Surgical History: Reports: Tonsillectomy Cardiovascular Surgical History: Reports: None GI Surgical History: Reports: Cholecystectomy, Colonoscopy, Other (See Below) Other GI Surgeries/Procedures: gastrojejunostomy resection r/t pancreatic adenocarcinoma Male Surgical History: Reports: TURP-Transurethral Resection of Prostate Neurological Surgical History: Reports: Spinal Fusion Musculoskeletal Surgical History: Reports: Arthroscopic Knee, Shoulder Surgery Oncologic Surgical History: Reports: None Dermatological Surgical History: Reports: None Social & Family History - Family History Family Medical History: Noncontributory - Tobacco Use Smoking Status *Q: Never Smoker Second Hand Smoke Exposure: No - Caffeine Use Caffeine Use: Reports: None - Alcohol Use Alcohol Use History: No - Recreational Drug Use Recreational Drug Use: No H&P Review of Systems - Review of Systems: Review Of Systems: See Below Free Text/Narrative: A complete 12 point review of systems was obtained. Pertinent positives and negatives are noted in the history of present illness. All other systems were reviewed and were negative except as noted. Exam - Exam Exam: See Below - Vital Signs Vital Signs: Last Vital Signs Temp 37.3 C 03/14/17 15:57 Pulse 94 03/14/17 15:57 Resp 15 03/14/17 15:57 BP 140/51 L 03/14/17 15:57 Pulse Ox 97 03/14/17 15:57 Weight: 72.575 kg - Exam Quality Assessment: No: Supplemental Oxygen General: Alert, Oriented, Cooperative. No: Mild Distress HEENT: Conjunctiva Clear. No: Mucosa Moist & [place] (dry), Scleral Icterus Neck: Supple, Trachea Midline. No: Lymphadenopathy Lungs: Clear to Auscultation, Normal Respiratory Effort Cardiovascular: Regular Rhythm, Tachycardia, Systolic Murmur GI/Abdominal Exam: Distended, Tender (moderate diffuse), Abnormal Bowel Sounds ( hyperactive). No: Soft, Guarding Back Exam: Full Range of Motion. No: Muscle Spasm Extremities: Pedal Edema (mild pitting edema both lower legs, R>L). No: Increased Warmth Peripheral Pulses: 2+: Dorsalis Pedis (L), Dorsalis Pedis (R) Skin: Warm, Dry Neuro Extensive - Mental Status: Alert, Oriented x3, Nl Response to Commands Neuro Extensive - Motor, Sensory, Reflexes: CN II-XII Intact. No: Dysarthria, Abnormal Motor, Tremor Psychiatric: Alert, Normal Affect - Patient Data Lab Results Last 24 hrs: Laboratory Results - last 24 hr 03/14/17 03/14/17 03/14/17 Range/Units 13:15 13:15 13:18 WBC 7.6 (4.5-11.0) K/uL RBC 2.67 L (4.30-5.90) M/uL Hgb 8.3 L D (12.0-15.0) g/dL Hct 25.7 L (40.0-54.0) % MCV 96 (80-98) fL MCH 31 (27-31) pg MCHC 32 (32-36) % Plt Count 188 (150-400) K/uL Neut % (Auto) 79 H (36-66) % Lymph % (Auto) 10 L (24-44) % [place] % (Auto) 11 H (2-6) % Eos % (Auto) 0 L (2-4) % Baso % (Auto) 0 (0-1) % Sodium 136 L (140-148) mmol/L Potassium 4.6 (3.6-5.2) mmol/L Chloride 100 (100-108) mmol/L Carbon Dioxide 26 (21-32) mmol/L Anion Gap 14.6 H (5.0-14.0) mmol/L BUN 34 H (7-18) mg/dL Creatinine 2.4 H (0.8-1.3) mg/dL Est Cr Clr Drug Dosing 23.35 mL/min Estimated GFR (MDRD) 26 L (>60) Glucose 129 H (74-106) mg/dL Calcium 8.6 (8.5-10.1) mg/dL Total Bilirubin 0.5 D (0.2-1.0) mg/dL AST 60 H (15-37) U/L ALT 46 D (12-78) U/L Alkaline Phosphatase 103 (46-116) U/L Total Protein 6.1 L (6.4-8.2) g/dL Albumin 2.7 L (3.4-5.0) g/dL Globulin 3.4 (2.3-3.5) g/dL Albumin/Globulin Ratio 0.8 L (1.2-2.2) Urine Color Urine Appearance Urine pH (4.5-8.0) Ur Specific [place] (1.008-1.030) Urine Protein (NEGATIVE) mg/dL Urine Glucose (UA) (NEGATIVE) mg/dL Urine Ketones (NEGATIVE) mg/dL Urine Occult Blood (NEGATIVE) Urine Nitrite (NEGAITVE) Urine Bilirubin (NEGATIVE) Urine Urobilinogen (NORMAL) mg/dL Ur Leukocyte Esterase (NEGATIVE) Urine RBC (0-5) Urine WBC (0-5) Ur Epithelial Cells Amorphous Sediment Urine Bacteria Urine Mucus Blood Type B POSITIVE Gel Antibody Screen Negative Crossmatch See Detail 03/14/17 Range/Units 13:45 WBC (4.5-11.0) K/uL RBC (4.30-5.90) M/uL Hgb (12.0-15.0) g/dL Hct (40.0-54.0) % MCV (80-98) fL MCH (27-31) pg MCHC (32-36) % Plt Count (150-400) K/uL Neut % (Auto) (36-66) % Lymph % (Auto) (24-44) % [place] % (Auto) (2-6) % Eos % (Auto) (2-4) % Baso % (Auto) (0-1) % Sodium (140-148) mmol/L Potassium (3.6-5.2) mmol/L Chloride (100-108) mmol/L Carbon Dioxide (21-32) mmol/L Anion Gap (5.0-14.0) mmol/L BUN (7-18) mg/dL Creatinine (0.8-1.3) mg/dL Est Cr Clr Drug Dosing mL/min Estimated GFR (MDRD) (>60) Glucose (74-106) mg/dL Calcium (8.5-10.1) mg/dL Total Bilirubin (0.2-1.0) mg/dL AST (15-37) U/L ALT (12-78) U/L Alkaline Phosphatase (46-116) U/L Total Protein (6.4-8.2) g/dL Albumin (3.4-5.0) g/dL Globulin (2.3-3.5) g/dL Albumin/Globulin Ratio (1.2-2.2) Urine Color Yellow Urine Appearance Clear Urine pH 5.0 (4.5-8.0) Ur Specific [place] 1.020 (1.008-1.030) Urine Protein Trace (NEGATIVE) mg/dL Urine Glucose (UA) Normal (NEGATIVE) mg/dL Urine Ketones 15 H (NEGATIVE) mg/dL Urine Occult Blood Negative (NEGATIVE) Urine Nitrite Negative (NEGAITVE) Urine Bilirubin Small (NEGATIVE) Urine Urobilinogen Normal (NORMAL) mg/dL Ur Leukocyte Esterase Negative (NEGATIVE) Urine RBC 0-5 (0-5) Urine WBC 0-5 (0-5) Ur Epithelial Cells Few Amorphous Sediment Not seen Urine Bacteria Few Urine Mucus Few Blood Type Gel Antibody Screen Crossmatch Result Diagrams: 03/14/17 13:15 03/14/17 13:15 Imaging Impressions Last 24 hrs: CT abd/pelvis w/o contrast - probable SBO with dilated loops of small bowel up to 4 cm. No obvious transition point. Pancreatic mass seen and similar to previous. Moderate ascites around liver, spleen and pelvis. Left upper extremity US - DVT of left upper arm *Q Meaningful Use (ADM) - VTE *Q VTE Criteria *Q: - VTE Risk Assess *Q Each Risk Factor Represents 1 Point: Swollen Legs, Current Total Score 1 Point Risk Factors: 1 Each Risk Factor Represents 2 Points: Malignancy (present or previous) Total Score 2 Point Risk Factors: 2 Each Risk Factor Represents 3 Points: Age 75 Years or Greater, Family history of thrombosis Total Score 3 Point Risk Factors: 6 Each Risk Factor Represents 5 Points: None Total Score 5 Point Risk Factors: 0 Venous Thromboembolism Risk Factor Score *Q: 9 - Stroke *Q Stroke Criteria *Q: - AMI *Q AMI Criteria *Q: - Problem List (1) Deep venous thrombosis of left upper extremity SNOMED Code(s): 011962150 ICD Code: I82.622 - ACUTE EMBOLISM AND THROMBOSIS OF DEEP VEINS OF L UP EXTREM Status: Acute Current Visit: Yes Qualifiers: Affected thrombotic vein of extremity: axillary Chronicity: acute Qualified Code(s): I82.A12 - Acute embolism and thrombosis of left axillary vein (2) Small bowel obstruction SNOMED Code(s): 517300420 ICD Code: K56.609 - UNSP INTESTNL OBST, UNSP TO PARTIAL VERSUS COMPLETE OBST Status: Acute Current Visit: Yes (3) Anemia of chronic disease SNOMED Code(s): 639566135 ICD Code: D63.8 - ANEMIA IN OTHER CHRONIC DISEASES CLASSIFIED ELSEWHERE Status: Acute Current Visit: Yes (4) Pancreatic cancer SNOMED Code(s): 937414346 ICD Code: C25.9 - MALIGNANT NEOPLASM OF PANCREAS, UNSPECIFIED Status: Acute Current Visit: Yes Qualifiers: Pancreatic malignancy location: head of pancreas Qualified Code(s): C25.0 - Malignant neoplasm of head of pancreas (5) Chronic kidney disease stage 3 SNOMED Code(s): 815506542 ICD Code: N18.3 - CHRONIC KIDNEY DISEASE, STAGE 3 (MODERATE) Status: Chronic Current Visit: No Problem List Initiated/Reviewed/Updated: Yes Orders Last 24hrs: Active Orders 24 hr Category Date Time Status Patient Status Manage Transfer [TRANSFER] Routine ADT 03/14/17 15:49 Ordered US Guidance Paracentesis NC [US] Stat Exams 03/14/17 13:26 Ordered RED BLOOD CELLS LP [BBK] Stat Lab 03/14/17 13:18 Results TYPE AND SCREEN [BBK] Stat Lab 03/14/17 13:18 Results Sodium Chloride 0.9% [Normal Saline] 1,000 ml Med 03/14/17 15:15 Active IV ASDIRECTED Resuscitation Status Routine Resus Stat 03/14/17 15:50 Ordered Medication Orders Sodium Chloride (Normal Saline) 1,000 mls @ 100 mls/hr IV ASDIRECTED MIKE Last Admin: 03/14/17 15:54 Dose: 100 mls/hr Assessment/Plan Comment:: ASSESSMENT AND PLAN - Left upper extremity DVT - provoked in the setting of cancer. Compensated by multiple medical issues as below and not safe for outpatient management. -Enoxaparin 1 mg/kg every 24 hours based on creatinine clearance -Start warfarin tomorrow -pain control Probable small bowel obstruction - CT suggestive of bowel obstruction but likely only partial with some stool continuing to pass. History of prior abdominal surgeries and adhesions are the likely culprit. Not vomiting at this time so will not place an NG tube. -IV fluids -Pain control -Nausea management if needed -Flat and upright in the morning Acute on chronic kidney injury - GFR currently stage IV with a baseline of stage III. Likely due to dehydration and should improve with fluids. -IV fluids and repeat labs in the morning Pancreatic cancer - has been receiving outpatient chemotherapy and is followed by the [facility]. -Outpatient follow-up Maintenance issues - - DVT prophylaxis - enoxaparin - GI prophylaxis - PPI - Nutrition - nothing by mouth for now - Stanford catheter - not indicated CODE STATUS - patient wishes to be full code at this time Admission justification - This patient will be admitted for inpatient services and is medically appropriate meeting medical necessity for inpatient admission as outlined in my documentation. I reasonably expect the patient will require inpatient services that span a period time over 2 midnights. I reasonably expect this patient to be discharged or transferred within 96 hours [facility] Disposition - anticipate discharge home after the hospital stay Primary care physician - Dr. Jaret Davis M.D.
[2017-03-14] MEDS ORDERED: Pantoprazole 40 MG Vial IV SCH ×2 (17:00→19:00)
[2017-03-14] MEDS ORDERED: Ondansetron 4 MG/2 ML SDV IV PRN (17:35)
[2017-03-14] MEDS ORDERED: Acetaminophen 650 MG Supp RECTAL PRN (17:35)
[2017-03-14] MEDS ORDERED: LORazepam 2 MG/ML MDV IVPUSH PRN (17:35)
[2017-03-14] MEDS ORDERED: Ondansetron 4 MG Tab.DIS PO PRN (17:35)
--- NOTE | 2017-03-14 17:46 | US ---
US Guidance Paracentesis NC INDICATION: localize fluid for paracentesis. FINDINGS: Ultrasound guidance provided for paracentesis.
[2017-03-14] MEDS: Enoxaparin 80 MG/0.8 ML Syringe SUBCUT SCH (19:44)
[2017-03-14] MEDS: HYDROmorphone 0.5 MG/0.5 ML Syringe IVPUSH PRN (19:45)
[2017-03-14] MEDS: Dextrose 5%-Lactated Ringers 1,000 ML IV SCH (22:09)
[2017-03-15] MEDS: HYDROmorphone 0.5 MG/0.5 ML Syringe IVPUSH PRN ×2 (01:41→06:54)
[2017-03-15] MEDS: Dextrose 5%-Lactated Ringers 1,000 ML IV SCH (06:14)
--- NOTE | 2017-03-15 08:36 | CR ---
Abdomen 2V AP Flat Upright INDICATION: f/u obstruction FINDINGS: Dilated small bowel loops measuring up to 6.2 cm, consistent with small bowel obstruction. Small amount of stool and gas throughout the colon. Advanced degenerative changes right hip.
--- NOTE | 2017-03-15 09:34 | PCM.PN ---
- General Info Date of Service: 03/15/17 Subjective Update: Mr. Genao is been stable since admission, no nausea vomiting and has had 3 bowel movements. Abdominal flat plate and upright x-ray from this morning continues to show evidence of at least partial bowel obstruction. Vital signs have been stable and he has remained afebrile. Functional Status: Reports: Pain Controlled, Ambulating, Urinating - Review of Systems General: Reports: Weakness. Denies: Fever, Chills Pulmonary: Reports: No Symptoms Cardiovascular: Reports: No Symptoms Gastrointestinal: Reports: Abdominal Pain, Flatus. Denies: Diarrhea, Difficulty Swallowing, Nausea, Vomiting - Patient Data Vitals - Most Recent: Last Vital Signs Temp 98.6 F 03/15/17 01:00 Pulse 86 03/15/17 01:00 Resp 18 03/15/17 01:00 BP 135/50 L 03/15/17 01:00 Pulse Ox 96 03/14/17 18:50 Weight - Most Recent: 196 lb I&O - Last 24 Hours: Intake & Output 03/14/17 03/15/17 03/15/17 22:59 06:59 14:59 Intake Total 0 1335 Balance 0 1335 Lab Results Last 24 Hours: Laboratory Results - last 24 hr 03/15/17 03/15/17 03/15/17 Range/Units 05:00 05:00 05:00 WBC 6.3 (4.5-11.0) K/uL RBC 2.86 L (4.30-5.90) M/uL Hgb 8.9 L (12.0-15.0) g/dL Hct 26.8 L (40.0-54.0) % MCV 94 (80-98) fL MCH 31 (27-31) pg MCHC 33 (32-36) % Plt Count 160 (150-400) K/uL PT 11.5 (9.5-12.0) sec INR 1.07 (0.80-1.20) Sodium 137 L (140-148) mmol/L Potassium 5.6 H (3.6-5.2) mmol/L Chloride 105 (100-108) mmol/L Carbon Dioxide 26 (21-32) mmol/L Anion Gap 11.6 (5.0-14.0) mmol/L BUN 29 H (7-18) mg/dL Creatinine 2.1 H (0.8-1.3) mg/dL Est Cr Clr Drug Dosing 26.69 mL/min Estimated GFR (MDRD) 30 L (>60) Glucose 118 H (74-106) mg/dL Calcium 8.2 L (8.5-10.1) mg/dL Magnesium 2.1 (1.8-2.4) mg/dL Total Bilirubin 0.7 (0.2-1.0) mg/dL AST 50 H (15-37) U/L ALT 37 (12-78) U/L Alkaline Phosphatase 89 (46-116) U/L Total Protein 5.3 L (6.4-8.2) g/dL Albumin 2.2 L (3.4-5.0) g/dL Globulin 3.1 (2.3-3.5) g/dL Albumin/Globulin Ratio 0.7 L (1.2-2.2) Med Orders - Current: Current Medications Acetaminophen (Tylenol) 650 mg PO Q4H PRN PRN Reason: Pain (Mild 1-3)/fever Acetaminophen (Tylenol) 650 mg RECTAL Q4H PRN PRN Reason: Mild pain/fever Enoxaparin Sodium (Lovenox) 80 mg SUBCUT Q24H [facility] Last Admin: 03/14/17 19:44 Dose: 80 mg Hydromorphone HCl (Dilaudid) 0.5 - 1 mg IVPUSH Q2H PRN PRN Reason: Pain (severe 7-10) Last Admin: 03/15/17 06:54 Dose: 0.5 mg Lorazepam (Ativan) 0.5 - 1 mg IVPUSH Q4H PRN PRN Reason: Nausea/Vomiting Ondansetron HCl (Zofran Odt) 4 mg PO Q6H PRN PRN Reason: Nausea able to take PO Ondansetron HCl (Zofran) 4 mg IV Q6H PRN PRN Reason: Nausea/Vomiting Pantoprazole Sodium (Protonix) 40 mg PO DAILY [facility] Discontinued Medications Hydromorphone HCl (Dilaudid) 0.5 mg IVPUSH ONETIME ONE Stop: 03/14/17 14:40 Last Admin: 03/14/17 14:43 Dose: 0.5 mg Sodium Chloride (Normal Saline) 1,000 mls @ 100 mls/hr IV ASDIRECTED [facility] Last Admin: 03/14/17 15:54 Dose: 100 mls/hr Dextrose/Lactated Ringer's (Dextrose 5%-Lactated Ringers) 1,000 mls @ 125 mls/ hr IV ASDIRECTED [facility] Last Admin: 03/15/17 06:14 Dose: 125 mls/hr Pantoprazole Sodium (Protonix Iv) 40 mg IV Q24H [facility] Last Admin: 03/15/17 00:48 Dose: Not Given Pantoprazole Sodium (Protonix Iv) 40 mg IV Q24H [facility] Last Admin: 03/14/17 19:45 Dose: 40 mg Pantoprazole Sodium (Protonix Iv) 40 mg IV Q24H [facility] - Exam Quality Assessment: DVT Prophylaxis General: Alert, Oriented, Cooperative, Mild Distress Lungs: Clear to Auscultation, Normal Respiratory Effort Cardiovascular: Regular Rate, Regular Rhythm, Murmurs. No: Irregular Rhythm, Bradycardia, Tachycardia GI/Abdominal Exam: Soft, No Organomegaly, Distended, Tender, Abnormal Bowel Sounds. No: Guarding, Rigid, Rebound Extremities: Other (Edema left arm) Skin: Warm, Dry, Intact - Problem List Review Problem List Initiated/Reviewed/Updated: Yes - My Orders Last 24 Hours: My Active Orders 03/15/17 09:30 Pantoprazole [ProTONIX] 40 mg PO DAILY 03/15/17 17:00 BASIC METABOLIC PANEL,BMP [CHEM] Urgent 03/15/17 Breakfast Clear Liquid Diet [DIET] 03/16/17 05:00 Abdomen 2V AP Upright Decub [CR] Timed BASIC METABOLIC PANEL,BMP [CHEM] Timed CBC WITH AUTO DIFF [HEME] Timed MAGNESIUM [CHEM] Timed - Plan Plan:: ASSESSMENT AND PLAN - Left upper extremity DVT - provoked in the setting of cancer. Compensated by multiple medical issues as below and not safe for outpatient management. -Enoxaparin 1 mg/kg every 24 hours based on creatinine clearance -Start warfarin tomorrow -pain control Probable partial small bowel obstruction - CT suggestive of bowel obstruction but likely only partial with some stool continuing to pass. Stable since admission with 3 bowel movements and no nausea and vomiting -Decrease IV rate to 75 mL per hour -Clear liquid diet -Pain control -Nausea management if needed -Flat and upright in the morning Acute on chronic kidney injury - renal function has improved from admission, not yet back to baseline -IV fluids and repeat labs in the morning Hyperkalemia-likely secondary to renal insufficiency -Continue IV fluids -Recheck potassium level later today and again in a.m. Pancreatic cancer - has been receiving outpatient chemotherapy and is followed by the [facility]. -Outpatient follow-up Maintenance issues - - DVT prophylaxis - enoxaparin - GI prophylaxis - PPI - Nutrition - nothing by mouth for now - Stanford catheter - not indicated CODE STATUS - patient wishes to be full code at this time Admission justification - This patient will be admitted for inpatient services and is medically appropriate meeting medical necessity for inpatient admission as outlined in my documentation. I reasonably expect the patient will require inpatient services that span a period time over 2 midnights. I reasonably expect this patient to be discharged or transferred within 96 hours after admission to the Critical [facility]. Disposition - anticipate discharge home after the hospital stay Primary care physician - Dr. Raygoza
[2017-03-15] MEDS: Pantoprazole 40 MG Tab.CR PO SCH (12:17)
[2017-03-15] MEDS: Enoxaparin 80 MG/0.8 ML Syringe SUBCUT SCH (17:00)
[2017-03-15] MEDS ORDERED: Pantoprazole 40 MG Vial IV SCH (18:00)
[2017-03-16] MEDS: HYDROmorphone 0.5 MG/0.5 ML Syringe IVPUSH PRN ×3 (01:34→13:29)
[2017-03-16] MEDS: Pantoprazole 40 MG Tab.CR PO SCH (09:22)
--- NOTE | 2017-03-16 09:39 | CR ---
Remains numerous dilated loops of small bowel. Similar to yesterday's examination. Findings concernin g for small bowel obstruction.
--- NOTE | 2017-03-16 12:13 | PCM.PN ---
<Charlene Montgomery - Last Filed: 03/16/17 14:40> - General Info Date of Service: 03/16/17 Subjective Update: Edgard feeling fairly well this morning. Curtis is managing his abdominal pain well. He's in good spirits. He reported 5 bowel movements yesterday and 2 so far today, each is black in color. He's been up and walking--7 times up and down the [place] yesterday and two so far today. Functional Status: Reports: Pain Controlled, Ambulating, Urinating - Review of Systems General: Denies: Weakness Pulmonary: Reports: No Symptoms. Denies: Shortness of Breath, Cough Cardiovascular: Reports: Edema. Denies: Chest Pain, Lightheadedness Gastrointestinal: Reports: Abdominal Pain, Hematochezia, Melena Musculoskeletal: Denies: Shoulder Pain, Arm Pain Skin: Reports: Dryness, Bruising Neurological: Denies: Difficulty Walking, Gait Disturbance Psychiatric: Reports: No Symptoms - Patient Data Vitals - Most Recent: Last Vital Signs Temp 98.8 F 03/16/17 11:00 Pulse 97 03/16/17 11:00 Resp 18 03/16/17 11:00 BP 119/73 03/16/17 11:00 Pulse Ox 98 03/16/17 11:00 Weight - Most Recent: 196 lb I&O - Last 24 Hours: Intake & Output 03/15/17 03/16/17 03/16/17 22:59 06:59 14:59 Intake Total 120 100 720 Output Total 100 Balance 20 100 720 Lab Results Last 24 Hours: Laboratory Results - last 24 hr 03/15/17 03/16/17 03/16/17 Range/Units 17:18 05:50 05:50 WBC 6.9 (4.5-11.0) K/uL RBC 2.88 L (4.30-5.90) M/uL Hgb 9.0 L (12.0-15.0) g/dL Hct 26.9 L (40.0-54.0) % MCV 93 (80-98) fL MCH 31 (27-31) pg MCHC 34 (32-36) % Plt Count 201 (150-400) K/uL Neut % (Auto) 76 H (36-66) % Lymph % (Auto) 12 L (24-44) % [place] % (Auto) 12 H (2-6) % Eos % (Auto) 0 L (2-4) % Baso % (Auto) 0 (0-1) % Sodium 135 L 135 L (140-148) mmol/L Potassium 5.0 4.1 (3.6-5.2) mmol/L Chloride 103 104 (100-108) mmol/L Carbon Dioxide 25 22 (21-32) mmol/L Anion Gap 12.0 13.1 (5.0-14.0) mmol/L BUN 27 H 24 H (7-18) mg/dL Creatinine 2.0 H 1.8 H (0.8-1.3) mg/dL Est Cr Clr Drug Dosing 28.03 31.14 mL/min Estimated GFR (MDRD) 32 L 36 L (>60) Glucose 111 H 101 (74-106) mg/dL Calcium 8.1 L 8.0 L (8.5-10.1) mg/dL Magnesium 1.9 (1.8-2.4) mg/dL Med Orders - Current: Current Medications Acetaminophen (Tylenol) 650 mg PO Q4H PRN PRN Reason: Pain (Mild 1-3)/fever Acetaminophen (Tylenol) 650 mg RECTAL Q4H PRN PRN Reason: Mild pain/fever Enoxaparin Sodium (Lovenox) 80 mg SUBCUT Q24H [facility] Last Admin: 03/15/17 17:00 Dose: 80 mg Hydromorphone HCl (Dilaudid) 0.5 - 1 mg IVPUSH Q2H PRN PRN Reason: Pain (severe 7-10) Last Admin: 03/16/17 08:45 Dose: 0.5 mg Lorazepam (Ativan) 0.5 - 1 mg IVPUSH Q4H PRN PRN Reason: Nausea/Vomiting Ondansetron HCl (Zofran Odt) 4 mg PO Q6H PRN PRN Reason: Nausea able to take PO Ondansetron HCl (Zofran) 4 mg IV Q6H PRN PRN Reason: Nausea/Vomiting Pantoprazole Sodium (Protonix) 40 mg PO DAILY@0730 [facility] Last Admin: 03/16/17 09:22 Dose: 40 mg Discontinued Medications Hydromorphone HCl (Dilaudid) 0.5 mg IVPUSH ONETIME ONE Stop: 03/14/17 14:40 Last Admin: 03/14/17 14:43 Dose: 0.5 mg Sodium Chloride (Normal Saline) 1,000 mls @ 100 mls/hr IV ASDIRECTED [facility] Last Admin: 03/14/17 15:54 Dose: 100 mls/hr Dextrose/Lactated Ringer's (Dextrose 5%-Lactated Ringers) 1,000 mls @ 125 mls/ hr IV ASDIRECTED [facility] Last Admin: 03/15/17 06:14 Dose: 125 mls/hr Pantoprazole Sodium (Protonix Iv) 40 mg IV Q24H [facility] Last Admin: 03/15/17 00:48 Dose: Not Given Pantoprazole Sodium (Protonix Iv) 40 mg IV Q24H [facility] Last Admin: 03/14/17 19:45 Dose: 40 mg Pantoprazole Sodium (Protonix Iv) 40 mg IV Q24H [facility] - Exam Quality Assessment: DVT Prophylaxis General: Alert, Oriented, Cooperative, No Acute Distress HEENT: Scleral Icterus (mild, left>right) Lungs: Clear to Auscultation, Normal Respiratory Effort. No: Crackles, Wheezing Cardiovascular: Regular Rate, Irregular Rhythm, Murmurs (2/6 diastolic murmur, heard best at RUSB) GI/Abdominal Exam: Non-Tender, Distended, Abnormal Bowel Sounds (soft), Hernia ( superior and to the right of his abdominal incision) Back Exam: Other (edema of lower back) Extremities: Pedal Edema, Other (erythematous left shoulder and arm with erythema, improved from yesterday per pts subjective report). No: Arm Pain, Increased Warmth Skin: Warm, Dry, Ecchymosis Psy/Mental Status: Alert, Normal Affect, Normal Mood - Problem List Review Problem List Initiated/Reviewed/Updated: Yes - Plan Plan:: ASSESSMENT AND PLAN - Left upper extremity DVT - provoked in the setting of cancer. Compensated by multiple medical issues as below and not safe for outpatient management. -Enoxaparin 1 mg/kg every 23 hours based on improved creatinine clearance; -Start warfarin once small bowel obstruction has resolved and we are confident he will not need abdominal surgery -pain control Probable partial small bowel obstruction - CT suggestive of bowel obstruction but likely only partial with some stool continuing to pass. Stable since admission with frequent daily bowel movements (tarry) and no nausea and vomiting -Continue IV fluids 75 mL per hour -advance to full liquid diet; discussed with pt we will soon transition him to low-resin diet -Pain control -Nausea management if needed -Flat and upright in the morning Acute on chronic kidney injury - renal function has improved from admission, currently at baseline -IV fluids and repeat labs in the morning -Strict Is and Os as pt has developed 2+ pitting edema to mid-shins as well as non-pitting dependent edema of lower back -60mg IV furosemide Hyperkalemia-resolved, likely secondary to renal insufficiency -Continue IV fluids -Recheck potassium tomorrow Pancreatic cancer - has been receiving outpatient chemotherapy and is followed by the [facility]. -Outpatient follow-up Normocytic anemia; likely multifactorial with cancer as well as chronic renal insufficiency contributing; though tarry stools in a patient with pancreatic cancer who presented with weakness/fatigue raises some concern for colonic metastasis -consider fecal occult blood test Maintenance issues - - DVT prophylaxis - enoxaparin - GI prophylaxis - PPI - Nutrition - full liquid diet - Stanford catheter - not indicated CODE STATUS - patient wishes to be full code at this time Admission justification - This patient will be admitted for inpatient services and is medically appropriate meeting medical necessity for inpatient admission as outlined in my documentation. I reasonably expect the patient will require inpatient services that span a period time over 2 midnights. I reasonably expect this patient to be discharged or transferred within 96 hours [facility] Disposition - anticipate discharge home after the hospital stay Primary care physician - Dr. Raygoza <Toño Montesinos - Last Filed: 03/16/17 16:47> - Patient Data Vitals - Most Recent: Last Vital Signs Temp 98.6 F 03/16/17 16:24 Pulse 84 03/16/17 16:24 Resp 20 03/16/17 16:24 BP 126/84 03/16/17 16:27 Pulse Ox 97 03/16/17 16:24 I&O - Last 24 Hours: Intake & Output 03/16/17 03/16/17 03/16/17 06:59 14:59 22:59 Intake Total 100 720 Balance 100 720 Lab Results Last 24 Hours: Laboratory Results - last 24 hr 03/15/17 03/16/17 03/16/17 Range/Units 17:18 05:50 05:50 WBC 6.9 (4.5-11.0) K/uL RBC 2.88 L (4.30-5.90) M/uL Hgb 9.0 L (12.0-15.0) g/dL Hct 26.9 L (40.0-54.0) % MCV 93 (80-98) fL MCH 31 (27-31) pg MCHC 34 (32-36) % Plt Count 201 (150-400) K/uL Neut % (Auto) 76 H (36-66) % Lymph % (Auto) 12 L (24-44) % [place] % (Auto) 12 H (2-6) % Eos % (Auto) 0 L (2-4) % Baso % (Auto) 0 (0-1) % Sodium 135 L 135 L (140-148) mmol/L Potassium 5.0 4.1 (3.6-5.2) mmol/L Chloride 103 104 (100-108) mmol/L Carbon Dioxide 25 22 (21-32) mmol/L Anion Gap 12.0 13.1 (5.0-14.0) mmol/L BUN 27 H 24 H (7-18) mg/dL Creatinine 2.0 H 1.8 H (0.8-1.3) mg/dL Est Cr Clr Drug Dosing 28.03 31.14 mL/min Estimated GFR (MDRD) 32 L 36 L (>60) Glucose 111 H 101 (74-106) mg/dL Calcium 8.1 L 8.0 L (8.5-10.1) mg/dL Magnesium 1.9 (1.8-2.4) mg/dL Med Orders - Current: Current Medications Acetaminophen (Tylenol) 650 mg PO Q4H PRN PRN Reason: Pain (Mild 1-3)/fever Acetaminophen (Tylenol) 650 mg RECTAL Q4H PRN PRN Reason: Mild pain/fever Enoxaparin Sodium (Lovenox) 80 mg SUBCUT Q12H [facility] Hydromorphone HCl (Dilaudid) 0.5 - 1 mg IVPUSH Q2H PRN PRN Reason: Pain (severe 7-10) Last Admin: 03/16/17 13:29 Dose: 0.5 mg Sodium Chloride (Normal Saline) 1,000 mls @ 100 mls/hr IV ASDIRECTED [facility] Lorazepam (Ativan) 0.5 - 1 mg IVPUSH Q4H PRN PRN Reason: Nausea/Vomiting Ondansetron HCl (Zofran Odt) 4 mg PO Q6H PRN PRN Reason: Nausea able to take PO Ondansetron HCl (Zofran) 4 mg IV Q6H PRN PRN Reason: Nausea/Vomiting Pantoprazole Sodium (Protonix) 40 mg PO DAILY@0730 [facility] Last Admin: 03/16/17 09:22 Dose: 40 mg Discontinued Medications Enoxaparin Sodium (Lovenox) 80 mg SUBCUT Q24H [facility] Last Admin: 03/15/17 17:00 Dose: 80 mg Enoxaparin Sodium (Lovenox) 80 mg SUBCUT Q12H [facility] Furosemide (Lasix) 60 mg IVPUSH ONETIME ONE Stop: 03/16/17 14:01 Last Admin: 03/16/17 16:27 Dose: 60 mg Hydromorphone HCl (Dilaudid) 0.5 mg IVPUSH ONETIME ONE Stop: 03/14/17 14:40 Last Admin: 03/14/17 14:43 Dose: 0.5 mg Sodium Chloride (Normal Saline) 1,000 mls @ 100 mls/hr IV ASDIRECTED [facility] Last Admin: 03/14/17 15:54 Dose: 100 mls/hr Dextrose/Lactated Ringer's (Dextrose 5%-Lactated Ringers) 1,000 mls @ 125 mls/ hr IV ASDIRECTED [facility] Last Admin: 03/15/17 06:14 Dose: 125 mls/hr Pantoprazole Sodium (Protonix Iv) 40 mg IV Q24H [facility] Last Admin: 03/15/17 00:48 Dose: Not Given Pantoprazole Sodium (Protonix Iv) 40 mg IV Q24H [facility] Last Admin: 03/14/17 19:45 Dose: 40 mg Pantoprazole Sodium (Protonix Iv) 40 mg IV Q24H [facility] - My Orders Last 24 Hours: My Active Orders 03/16/17 13:09 Intake and Output Strict [RC] ASDIRECTED 03/16/17 13:17 Hemoccult [Fecal Occult Blood Collection] [RC] ASDIRECTED 03/16/17 18:00 Enoxaparin [Lovenox] 80 mg SUBCUT Q12H 03/16/17 Lunch Full Liquid Diet [DIET] 03/17/17 00:01 Sodium Chloride 0.9% @ 100 MLS/HR(1000ml) Sodium Chloride 0.9% [Normal Saline] 1 ,000 ml IV ASDIRECTED 03/17/17 05:00 BASIC METABOLIC PANEL,BMP [CHEM] Timed MAGNESIUM [CHEM] Timed 03/17/17 05:11 CBC W/O DIFF,HEMOGRAM [HEME] AM 03/17/17 Breakfast Nothing per Oral After Midnight Diet [DIET]
[2017-03-16] MEDS ORDERED: Furosemide 100 MG/10 ML SDV IVPUSH ONE (14:00)
[2017-03-16] MEDS ORDERED: Enoxaparin 80 MG/0.8 ML Syringe SUBCUT SCH (14:00)
--- NOTE | 2017-03-16 16:52 | PCM.PN ---
- General Info Date of Service: 03/16/17 Subjective Update: Mr. Genao has been stable since yesterday, vital signs have been good and he has remained afebrile. Denies chest pain or pressure shortness of breath, has been able to ambulate in the hallways. Tolerating a clear liquid diet with no nausea or vomiting. Several bowel movements over the past 24 hours that have been black in color. Functional Status: Reports: Pain Controlled, Tolerating Diet, Ambulating - Review of Systems General: Denies: Fever, Chills Pulmonary: Reports: No Symptoms Cardiovascular: Reports: Edema. Denies: Chest Pain, Palpitations, Dyspnea on Exertion, Orthopnea, PND Gastrointestinal: Reports: No Symptoms - Patient Data Vitals - Most Recent: Last Vital Signs Temp 98.6 F 03/16/17 16:24 Pulse 84 03/16/17 16:24 Resp 20 03/16/17 16:24 BP 126/84 03/16/17 16:27 Pulse Ox 97 03/16/17 16:24 Weight - Most Recent: 196 lb I&O - Last 24 Hours: Intake & Output 03/16/17 03/16/17 03/16/17 06:59 14:59 22:59 Intake Total 100 720 Balance 100 720 Lab Results Last 24 Hours: Laboratory Results - last 24 hr 03/15/17 03/16/17 03/16/17 Range/Units 17:18 05:50 05:50 WBC 6.9 (4.5-11.0) K/uL RBC 2.88 L (4.30-5.90) M/uL Hgb 9.0 L (12.0-15.0) g/dL Hct 26.9 L (40.0-54.0) % MCV 93 (80-98) fL MCH 31 (27-31) pg MCHC 34 (32-36) % Plt Count 201 (150-400) K/uL Neut % (Auto) 76 H (36-66) % Lymph % (Auto) 12 L (24-44) % [place] % (Auto) 12 H (2-6) % Eos % (Auto) 0 L (2-4) % Baso % (Auto) 0 (0-1) % Sodium 135 L 135 L (140-148) mmol/L Potassium 5.0 4.1 (3.6-5.2) mmol/L Chloride 103 104 (100-108) mmol/L Carbon Dioxide 25 22 (21-32) mmol/L Anion Gap 12.0 13.1 (5.0-14.0) mmol/L BUN 27 H 24 H (7-18) mg/dL Creatinine 2.0 H 1.8 H (0.8-1.3) mg/dL Est Cr Clr Drug Dosing 28.03 31.14 mL/min Estimated GFR (MDRD) 32 L 36 L (>60) Glucose 111 H 101 (74-106) mg/dL Calcium 8.1 L 8.0 L (8.5-10.1) mg/dL Magnesium 1.9 (1.8-2.4) mg/dL Med Orders - Current: Current Medications Acetaminophen (Tylenol) 650 mg PO Q4H PRN PRN Reason: Pain (Mild 1-3)/fever Acetaminophen (Tylenol) 650 mg RECTAL Q4H PRN PRN Reason: Mild pain/fever Enoxaparin Sodium (Lovenox) 80 mg SUBCUT Q12H [facility] Hydromorphone HCl (Dilaudid) 0.5 - 1 mg IVPUSH Q2H PRN PRN Reason: Pain (severe 7-10) Last Admin: 03/16/17 13:29 Dose: 0.5 mg Sodium Chloride (Normal Saline) 1,000 mls @ 100 mls/hr IV ASDIRECTED [facility] Lorazepam (Ativan) 0.5 - 1 mg IVPUSH Q4H PRN PRN Reason: Nausea/Vomiting Ondansetron HCl (Zofran Odt) 4 mg PO Q6H PRN PRN Reason: Nausea able to take PO Ondansetron HCl (Zofran) 4 mg IV Q6H PRN PRN Reason: Nausea/Vomiting Pantoprazole Sodium (Protonix) 40 mg PO DAILY@0730 [facility] Last Admin: 03/16/17 09:22 Dose: 40 mg Discontinued Medications Enoxaparin Sodium (Lovenox) 80 mg SUBCUT Q24H [facility] Last Admin: 03/15/17 17:00 Dose: 80 mg Enoxaparin Sodium (Lovenox) 80 mg SUBCUT Q12H [facility] Furosemide (Lasix) 60 mg IVPUSH ONETIME ONE Stop: 03/16/17 14:01 Last Admin: 03/16/17 16:27 Dose: 60 mg Hydromorphone HCl (Dilaudid) 0.5 mg IVPUSH ONETIME ONE Stop: 03/14/17 14:40 Last Admin: 03/14/17 14:43 Dose: 0.5 mg Sodium Chloride (Normal Saline) 1,000 mls @ 100 mls/hr IV ASDIRECTED [facility] Last Admin: 03/14/17 15:54 Dose: 100 mls/hr Dextrose/Lactated Ringer's (Dextrose 5%-Lactated Ringers) 1,000 mls @ 125 mls/ hr IV ASDIRECTED [facility] Last Admin: 03/15/17 06:14 Dose: 125 mls/hr Pantoprazole Sodium (Protonix Iv) 40 mg IV Q24H [facility] Last Admin: 03/15/17 00:48 Dose: Not Given Pantoprazole Sodium (Protonix Iv) 40 mg IV Q24H [facility] Last Admin: 03/14/17 19:45 Dose: 40 mg Pantoprazole Sodium (Protonix Iv) 40 mg IV Q24H [facility] - Exam Quality Assessment: DVT Prophylaxis General: Alert, Oriented, Cooperative, No Acute Distress Lungs: Clear to Auscultation, Normal Respiratory Effort Cardiovascular: Regular Rate, Regular Rhythm, Murmurs GI/Abdominal Exam: Normal Bowel Sounds, Soft, Non-Tender, Distended. No: Guarding, Rigid, Rebound Back Exam: Other (Perisacral edema) Extremities: Pedal Edema - Problem List Review Problem List Initiated/Reviewed/Updated: Yes - My Orders Last 24 Hours: My Active Orders 03/16/17 13:09 Intake and Output Strict [RC] ASDIRECTED 03/16/17 13:17 Hemoccult [Fecal Occult Blood Collection] [RC] ASDIRECTED 03/16/17 18:00 Enoxaparin [Lovenox] 80 mg SUBCUT Q12H 03/16/17 Lunch Full Liquid Diet [DIET] 03/17/17 00:01 Sodium Chloride 0.9% @ 100 MLS/HR(1000ml) Sodium Chloride 0.9% [Normal Saline] 1 ,000 ml IV ASDIRECTED 03/17/17 05:00 BASIC METABOLIC PANEL,BMP [CHEM] Timed MAGNESIUM [CHEM] Timed 03/17/17 05:11 CBC W/O DIFF,HEMOGRAM [HEME] AM 03/17/17 Breakfast Nothing per Oral After Midnight Diet [DIET] - Plan Plan:: ASSESSMENT AND PLAN - Left upper extremity DVT - provoked in the setting of cancer and left subclavian Sharp catheter. Compensated by multiple medical issues as below and not safe for outpatient management. -Enoxaparin 1 mg/kg every 12 hours based on improved creatinine clearance; -Start warfarin once small bowel obstruction has resolved and we are confident he will not need abdominal surgery -pain control -Consult Dr. Short for Sharp removal in a.m. Probable partial small bowel obstruction - CT suggestive of bowel obstruction but likely only partial with some stool continuing to pass. Stable since admission with frequent daily bowel movements (tarry) and no nausea and vomiting -advance to full liquid diet; discussed with pt we will soon transition him to low-resin diet -Pain control -Nausea management if needed -Flat and upright in the morning Acute on chronic kidney injury - renal function has improved from admission, currently at baseline -IV fluids and repeat labs in the morning -Strict Is and Os as pt has developed 2+ pitting edema to mid-shins as well as non-pitting dependent edema of lower back -60mg IV furosemide, reassess in a.m. Hyperkalemia-resolved, likely secondary to renal insufficiency -Recheck potassium tomorrow Pancreatic cancer - has been receiving outpatient chemotherapy and is followed by the [facility]. -Outpatient follow-up Normocytic anemia; likely multifactorial with cancer as well as chronic renal insufficiency contributing; though tarry stools in a patient with pancreatic cancer who presented with weakness/fatigue raises some concern for colonic metastasis -consider fecal occult blood test Maintenance issues - - DVT prophylaxis - enoxaparin - GI prophylaxis - PPI - Nutrition - full liquid diet - Stanford catheter - not indicated CODE STATUS - patient wishes to be full code at this time Admission justification - This patient will be admitted for inpatient services and is medically appropriate meeting medical necessity for inpatient admission as outlined in my documentation. I reasonably expect the patient will require inpatient services that span a period time over 2 midnights. I reasonably expect this patient to be discharged or transferred within 96 hours [facility] Disposition - anticipate discharge home after the hospital stay Primary care physician - Dr. Raygoza
[2017-03-16] MEDS: Enoxaparin 80 MG/0.8 ML Syringe SUBCUT SCH (17:01)
[2017-03-16] MEDS: oxyCODONE 5 MG Tab PO PRN (18:28)
[2017-03-17] MEDS ORDERED: Sodium Chloride 0.9% 1,000 ML IV SCH (00:01)
[2017-03-17] MEDS: HYDROmorphone 0.5 MG/0.5 ML Syringe IVPUSH PRN ×2 (02:32→08:14)
[2017-03-17] MEDS ORDERED: Bupivacaine 0.5% 50 ML MDV ONE (07:21)
[2017-03-17] MEDS ORDERED: Lidocaine 1% with EPINEPHrine 1:100,000 50 ML MDV ONE (07:22)
[2017-03-17] MEDS ORDERED: Propofol 200 MG/20 ML SDV ONE (07:41)
--- NOTE | 2017-03-17 08:36 | CR ---
Findings: There does remain some dilated small bowel loops concerning for small bowel obstruction. Si milar compared to yesterday's exam.
--- NOTE | 2017-03-17 09:22 | PCM.CONS ---
H&P History of Present Illness - General Admit Problem/Dx: Admission Diagnosis/Problem Admission Diagnosis/Problem Small bowel obstruction Source of Information: Patient History Limitations: Reports: No Limitations - History of Present Illness Onset of Symptoms: Reports: Gradual Duration of Symptoms: Reports: Intermittent Location: Reports: Abdomen Severity: Mild Improves with: Reports: None Worsens with: Reports: None Associated Symptoms: Reports: Loss of Appetite, Malaise, Nausea/Vomiting, Other (All symptoms have pretty much resolved. ) Abdomen Pain Score (Numeric/FACES): 3 - Related Data Allergies/Adverse Reactions: Allergies Allergy/AdvReac Type Severity Reaction Status Date / Time No Known Allergies Allergy Verified 03/14/17 13:03 Home Medications: Home Meds Multivitamin with Minerals [Multiple Vitamin] 1 each PO DAILY 11/19/13 [History] Clawson-3/DHA/Epa/Fish Oil [Fish Oil 1,000 mg Softgel] 1 each PO DAILY 11/19/13 [ History] Nitroglycerin [Nitrostat] 0.4 mg SL ASDIRECTED 07/03/15 [History] Melatonin 5 mg PO BEDTIME PRN 08/19/16 [History] Cholecalciferol (Vitamin D3) [Vitamin D3] 1 tab PO DAILY 10/15/16 [History] Docusate Sodium [Colace Clear] 50 mg PO BID 10/15/16 [History] Prochlorperazine Maleate [Compazine] 10 mg PO ASDIRECTED PRN 10/15/16 [History] Hydrocodone/Acetaminophen [Hydrocodon-Acetaminophn 10-325] 1 tab PO QID PRN [History] Past Medical History HEENT History: Reports: Allergic Rhinitis, Hard of Hearing, Impaired Vision Other HEENT History: wears glasses Cardiovascular History: Reports: Arrhythmia Gastrointestinal History: Reports: Chronic Constipation, Diverticulosis, Gastritis, GI Bleed, Other (See Below) Other Gastrointestinal History: vitaticulosis Genitourinary History: Reports: BPH, Prostate Disorder Musculoskeletal History: Reports: Arthritis Other Musculoskeletal History: collar bone Neurological History: Reports: None Hematologic History: Reports: Blood Transfusion(s) Oncologic (Cancer) History: Reports: Pancreatic - Infectious Disease History Infectious Disease History: Reports: Chicken Pox - Past Surgical History HEENT Surgical History: Reports: Tonsillectomy Cardiovascular Surgical History: Reports: None GI Surgical History: Reports: Cholecystectomy, Colonoscopy, Other (See Below) Other GI Surgeries/Procedures: gastrojejunostomy resection r/t pancreatic adenocarcinoma Male Surgical History: Reports: TURP-Transurethral Resection of Prostate Neurological Surgical History: Reports: Spinal Fusion Musculoskeletal Surgical History: Reports: Arthroscopic Knee, Shoulder Surgery Oncologic Surgical History: Reports: None Dermatological Surgical History: Reports: None Social & Family History - Family History Family Medical History: Noncontributory - Tobacco Use Smoking Status *Q: Never Smoker Second Hand Smoke Exposure: No - Caffeine Use Caffeine Use: Reports: None - Recreational Drug Use Recreational Drug Use: No H&P Review of Systems - Review of Systems: Review Of Systems: See Below General: Reports: Malaise, Weakness, Fatigue HEENT: Reports: No Symptoms Pulmonary: Reports: No Symptoms Cardiovascular: Reports: No Symptoms Gastrointestinal: Reports: Abdominal Pain (cramping) Genitourinary: Reports: No Symptoms Musculoskeletal: Reports: No Symptoms Skin: Reports: No Symptoms Psychiatric: Reports: No Symptoms Neurological: Reports: No Symptoms Hematologic/Lymphatic: Reports: No Symptoms Immunologic: Reports: No Symptoms Exam - Exam Exam: See Below - Vital Signs Vital Signs: Last Vital Signs Temp 98.6 F 03/17/17 07:31 Pulse 49 L 03/17/17 07:31 Resp 16 03/17/17 07:31 BP 122/76 03/17/17 07:31 Pulse Ox 97 03/17/17 07:31 Weight: 196 lb - Exam General: Mild Distress HEENT: PERRLA Neck: Supple, Trachea Midline Lungs: Clear to Auscultation, Normal Respiratory Effort Cardiovascular: Regular Rate, Regular Rhythm GI/Abdominal Exam: Soft, Non-Tender (Male) Exam: Deferred Rectal (Males) Exam: Deferred Back Exam: Normal Inspection Extremities: Normal Inspection Skin: Warm, Dry, Intact Neurological: Cranial Nerves Intact Neuro Extensive - Mental Status: Alert, Normal Mood/Affect Neuro Extensive - Motor, Sensory, Reflexes: CN II-XII Intact Psychiatric: Labile Mood - Patient Data Lab Results Last 24 hrs: Laboratory Results - last 24 hr 03/17/17 03/17/17 Range/Units 04:00 04:00 WBC 6.0 (4.5-11.0) K/uL RBC 2.97 L (4.30-5.90) M/uL Hgb 9.3 L (12.0-15.0) g/dL Hct 27.1 L (40.0-54.0) % MCV 91 (80-98) fL MCH 31 (27-31) pg MCHC 34 (32-36) % Plt Count 181 (150-400) K/uL Sodium 138 L (140-148) mmol/L Potassium 4.1 (3.6-5.2) mmol/L Chloride 105 (100-108) mmol/L Carbon Dioxide 23 (21-32) mmol/L Anion Gap 14.1 H (5.0-14.0) mmol/L BUN 21 H (7-18) mg/dL Creatinine 1.9 H (0.8-1.3) mg/dL Est Cr Clr Drug Dosing 29.50 mL/min Estimated GFR (MDRD) 34 L (>60) Glucose 100 (74-106) mg/dL Calcium 8.1 L (8.5-10.1) mg/dL Magnesium 1.9 (1.8-2.4) mg/dL Result Diagrams: 03/17/17 04:00 03/17/17 04:00 Michael Results Last 24 hrs: Microbiology 03/16/17 17:59 Stool Occult Blood (MICHAEL) - Final Stool / Feces NEGATIVE OCCULT BLOOD Consult PN Assessment/Plan POD#: 0 Procedures: Procedures ASSAY OF AMMONIA (08/18/16) ASSAY OF AMYLASE (08/18/16) ASSAY OF CK (CPK) (10/15/14) ASSAY OF LACTIC ACID (12/11/13) ASSAY OF LIPASE (08/18/16) ASSAY OF MAGNESIUM (08/18/16) ASSAY OF NATRIURETIC PEPTIDE (08/18/16) ASSAY OF PHOSPHORUS (08/18/16) ASSAY OF SERUM POTASSIUM (08/18/16) ASSAY OF TROPONIN QUANT (10/15/14) BLOOD CULTURE FOR BACTERIA (12/11/13) BLOOD TRANSFUSION SERVICE (08/18/16) BLOOD TYPING SEROLOGIC ABO (08/18/16) BLOOD TYPING SEROLOGIC RH(D) (08/18/16) CARCINOEMBRYONIC ANTIGEN (08/18/16) CARDIOVASCULAR STRESS TEST (10/17/14) CARDIOVASCULAR STRESS TEST (10/17/14) CHEST X-RAY 2VW FRONTAL&LATL (10/15/14) COMPATIBILITY TEST ANTIGLOB (08/18/16) COMPATIBILITY TEST SPIN (08/18/16) COMPLETE CBC AUTOMATED (08/18/16) COMPLETE CBC W/AUTO DIFF WBC (08/18/16) COMPREHEN METABOLIC PANEL (08/18/16) CT ABD & PELV W/CONTRAST (01/07/17) CT ABD & PELVIS W/O CONTRAST (08/18/16) CT THORAX W/DYE (01/07/17) DIAGNOSTIC COLONOSCOPY (07/07/15) ECHO EXAM OF ABDOMEN (08/18/16) ELECTROCARDIOGRAM TRACING (08/18/16) EMERGENCY DEPT VISIT (08/18/16) EMERGENCY DEPT VISIT (10/15/14) EMERGENCY DEPT VISIT (10/15/14) EMERGENCY DEPT VISIT (11/19/13) HT MUSCLE IMAGE SPECT MULT (10/17/14) HYDRATE IV INFUSION ADD-ON (08/18/16) HYDRATION IV INFUSION INIT (08/18/16) IMMUNOASSAY TUMOR CA 19-9 (08/18/16) INSERT TUNNELED CV CATH (10/21/16) INTMD RPR N-HF/GENIT7.6-12.5 (11/19/13) MEASURE BLOOD OXYGEN LEVEL (08/18/16) METABOLIC PANEL TOTAL CA (12/11/13) MRI ABDOMEN W/O & W/DYE (08/18/16) MRI LUMBAR SPINE W/O DYE (08/27/15) PROTHROMBIN TIME (08/18/16) RBC ANTIBODY SCREEN (08/18/16) RBC SED RATE NONAUTOMATED (08/18/16) ROUTINE VENIPUNCTURE (08/18/16) THROMBOPLASTIN TIME PARTIAL (08/18/16) TTE W/DOPPLER COMPLETE (12/02/14) URINALYSIS AUTO W/SCOPE (10/15/14) (1) Partial small bowel obstruction SNOMED Code(s): 377786686 Code(s): K56.600 - PARTIAL INTESTINAL OBSTRUCTION, UNSPECIFIED TO CAUSE Current Visit: Yes Problem List Initiated/Reviewed/Updated: Yes My Orders Last 24 Hours: Schedule and have consent signed for Port Removal with IV/Local Sedation - Gary Short MD - Case to Follow today. Gary Short MD - NPO Abdominal X Ray was reviewed by Gary Short MD and small bowel obstruction is resolving. Michelle De Dios
[2017-03-17] MEDS: Pantoprazole 40 MG Tab.CR PO SCH (09:23)
[2017-03-17] MEDS: oxyCODONE 5 MG Tab PO PRN (17:24)
[2017-03-17] MEDS: Enoxaparin 80 MG/0.8 ML Syringe SUBCUT SCH (17:26)
--- NOTE | 2017-03-17 19:04 | PCM.PN ---
- General Info Date of Service: 03/17/17 Subjective Update: Mr. Genao is status post removal of his Port-A-Cath earlier today by Dr. Short. He otherwise has done well and tolerated a full liquid diet without significant difficulty. Abdominal flat plate and upright x-ray from this morning shows air-fluid levels in dilated loops of bowels but at the present time Mr. Genao has been asymptomatic with no nausea vomiting and fairly regular bowel movements. He denies any chest pain or pressure or significant shortness of breath. - Patient Data Vitals - Most Recent: Last Vital Signs Temp 98.3 F 03/17/17 15:20 Pulse 97 03/17/17 16:16 Resp 14 03/17/17 16:16 BP 143/90 H 03/17/17 16:16 Pulse Ox 100 03/17/17 16:16 Weight - Most Recent: 196 lb I&O - Last 24 Hours: Intake & Output 03/17/17 03/17/17 03/17/17 06:59 14:59 22:59 Intake Total 913 750 Output Total 1400 Balance -487 750 Lab Results Last 24 Hours: Laboratory Results - last 24 hr 03/17/17 03/17/17 Range/Units 04:00 04:00 WBC 6.0 (4.5-11.0) K/uL RBC 2.97 L (4.30-5.90) M/uL Hgb 9.3 L (12.0-15.0) g/dL Hct 27.1 L (40.0-54.0) % MCV 91 (80-98) fL MCH 31 (27-31) pg MCHC 34 (32-36) % Plt Count 181 (150-400) K/uL Sodium 138 L (140-148) mmol/L Potassium 4.1 (3.6-5.2) mmol/L Chloride 105 (100-108) mmol/L Carbon Dioxide 23 (21-32) mmol/L Anion Gap 14.1 H (5.0-14.0) mmol/L BUN 21 H (7-18) mg/dL Creatinine 1.9 H (0.8-1.3) mg/dL Est Cr Clr Drug Dosing 29.50 mL/min Estimated GFR (MDRD) 34 L (>60) Glucose 100 (74-106) mg/dL Calcium 8.1 L (8.5-10.1) mg/dL Magnesium 1.9 (1.8-2.4) mg/dL Michael Results Last 24 Hours: Microbiology 03/16/17 17:59 Stool Occult Blood (MICHAEL) - Final Stool / Feces NEGATIVE OCCULT BLOOD Med Orders - Current: Current Medications Acetaminophen (Tylenol) 650 mg PO Q4H PRN PRN Reason: Pain (Mild 1-3)/fever Acetaminophen (Tylenol) 650 mg RECTAL Q4H PRN PRN Reason: Mild pain/fever Enoxaparin Sodium (Lovenox) 80 mg SUBCUT Q12H [facility] Last Admin: 03/17/17 17:26 Dose: 80 mg Hydromorphone HCl (Dilaudid) 0.5 - 1 mg IVPUSH Q2H PRN PRN Reason: Pain (severe 7-10) Last Admin: 03/17/17 08:14 Dose: 0.5 mg Lorazepam (Ativan) 0.5 - 1 mg IVPUSH Q4H PRN PRN Reason: Nausea/Vomiting Ondansetron HCl (Zofran Odt) 4 mg PO Q6H PRN PRN Reason: Nausea able to take PO Ondansetron HCl (Zofran) 4 mg IV Q6H PRN PRN Reason: Nausea/Vomiting Oxycodone HCl (Oxycodone) 5 mg PO Q4H PRN PRN Reason: Pain Last Admin: 03/17/17 17:24 Dose: 5 mg Pantoprazole Sodium (Protonix) 40 mg PO DAILY@0730 [facility] Last Admin: 03/17/17 09:23 Dose: Not Given Discontinued Medications Bupivacaine HCl (Marcaine 0.5%) Confirm Administered Dose 50 ml .ROUTE .STK-MED ONE Stop: 03/17/17 07:22 Last Admin: 03/17/17 13:20 Dose: 5 ml Enoxaparin Sodium (Lovenox) 80 mg SUBCUT Q24H [facility] Last Admin: 03/15/17 17:00 Dose: 80 mg Enoxaparin Sodium (Lovenox) 80 mg SUBCUT Q12H [facility] Furosemide (Lasix) 60 mg IVPUSH ONETIME ONE Stop: 03/16/17 14:01 Last Admin: 03/16/17 16:27 Dose: 60 mg Hydromorphone HCl (Dilaudid) 0.5 mg IVPUSH ONETIME ONE Stop: 03/14/17 14:40 Last Admin: 03/14/17 14:43 Dose: 0.5 mg Sodium Chloride (Normal Saline) 1,000 mls @ 100 mls/hr IV ASDIRECTED [facility] Last Admin: 03/14/17 15:54 Dose: 100 mls/hr Dextrose/Lactated Ringer's (Dextrose 5%-Lactated Ringers) 1,000 mls @ 125 mls/ hr IV ASDIRECTED [facility] Last Admin: 03/15/17 06:14 Dose: 125 mls/hr Sodium Chloride (Normal Saline) 1,000 mls @ 100 mls/hr IV ASDIRECTED [facility] Last Admin: 03/17/17 00:05 Dose: 100 mls/hr Lidocaine/Epinephrine (Xylocaine 1% With Epinephrine 1:100,000) Confirm Administered Dose 50 ml .ROUTE .STK-MED ONE Stop: 03/17/17 07:23 Last Admin: 03/17/17 13:20 Dose: 5 ml Pantoprazole Sodium (Protonix Iv) 40 mg IV Q24H [facility] Last Admin: 03/15/17 00:48 Dose: Not Given Pantoprazole Sodium (Protonix Iv) 40 mg IV Q24H MIKE Last Admin: 03/14/17 19:45 Dose: 40 mg Pantoprazole Sodium (Protonix Iv) 40 mg IV Q24H [facility] Propofol (Diprivan 20 Ml) Confirm Administered Dose 200 mg .ROUTE .STK-MED ONE Stop: 03/17/17 07:42 - Exam General: Alert, Oriented, No Acute Distress Lungs: Clear to Auscultation, Normal Respiratory Effort Cardiovascular: Regular Rate, Regular Rhythm, No Murmurs GI/Abdominal Exam: Normal Bowel Sounds, Soft, Non-Tender, No Organomegaly, No Distention Extremities: Non-Tender, Pedal Edema, Other (Edema left arm) Skin: Warm, Dry - Problem List Review Problem List Initiated/Reviewed/Updated: Yes - My Orders Last 24 Hours: My Active Orders 03/17/17 18:56 Convert IV to Saline Lock [OM.PC] Routine 03/17/17 Lunch Post Surgical Soft [Soft Diet] [DIET] 03/18/17 05:00 Abdomen 2V AP Upright Decub [CR] Timed BASIC METABOLIC PANEL,BMP [CHEM] Timed - Plan Plan:: ASSESSMENT AND PLAN - Left upper extremity DVT - provoked in the setting of cancer and left subclavian Port-A-Cath. Compensated by multiple medical issues as below and not safe for outpatient management. Status post Port-A-Cath removal done earlier today -Enoxaparin 1 mg/kg every 12 hours based on improved creatinine clearance; -Start warfarin once small bowel obstruction has resolved and we are confident he will not need abdominal surgery -pain control Probable partial small bowel obstruction - CT suggestive of bowel obstruction but likely only partial with some stool continuing to pass. Stable since admission with frequent daily bowel movements (tarry) and no nausea and vomiting -Soft mechanical low residue diet -Pain control -Nausea management if needed -Flat and upright in the morning -Surgical follow-up per Dr. Short Acute on chronic kidney injury - renal function has improved from admission, currently at baseline -IV fluids and repeat labs in the morning -Strict Is and Os as pt has developed 2+ pitting edema to mid-shins as well as non-pitting dependent edema of lower back - read dose with IV Lasix in a.m. Hyperkalemia-resolved, likely secondary to renal insufficiency -Recheck potassium tomorrow Pancreatic cancer - has been receiving outpatient chemotherapy and is followed by the [facility]. -Outpatient follow-up Normocytic anemia; likely multifactorial with cancer as well as chronic renal insufficiency contributing; though tarry stools in a patient with pancreatic cancer who presented with weakness/fatigue raises some concern for colonic metastasis -consider fecal occult blood test Maintenance issues - - DVT prophylaxis - enoxaparin - GI prophylaxis - PPI - Nutrition - full liquid diet - Stanford catheter - not indicated CODE STATUS - patient wishes to be full code at this time Admission justification - This patient will be admitted for inpatient services and is medically appropriate meeting medical necessity for inpatient admission as outlined in my documentation. I reasonably expect the patient will require inpatient services that span a period time over 2 midnights. I reasonably expect this patient to be discharged or transferred within 96 hours [facility] Disposition - anticipate discharge home after the hospital stay Primary care physician - Dr. Raygoza
[2017-03-18] MEDS: Enoxaparin 80 MG/0.8 ML Syringe SUBCUT SCH (05:28)
[2017-03-18] MEDS: Acetaminophen 325 MG Tab PO PRN ×2 (05:34→16:56)
[2017-03-18] MEDS: oxyCODONE 5 MG Tab PO PRN ×2 (05:34→16:56)
[2017-03-18] MEDS ORDERED: Dextrose 5%-Lactated Ringers 1,000 ML IV SCH (07:45)
[2017-03-18] MEDS: Pantoprazole 40 MG Tab.CR PO SCH (08:20)
--- NOTE | 2017-03-18 08:34 | PN ---
DATE OF SERVICE: 03/18/2017 SUBJECTIVE: Edgard had his ports removed yesterday. He denies pain. Vital signs have been stable. He has been afebrile. REVIEW OF SYSTEMS: Remainder of review of systems is negative for any pertinent positives and negatives. OBJECTIVE: GENERAL: Edgard Genao is a pleasant 81-year-old male. VITAL SIGNS: TPR is 98.5, 69, 16, blood pressure 129/85. HEENT: Negative. NECK: Supple. HEART: Regular rate and rhythm. LUNGS: Clear. EXTREMITIES: Left upper extremity is swollen. Trace peripheral edema. ASSESSMENT: 1. Port removal, 03/17/2017. 2. Partial small bowel obstruction, resolved. 3. Deep vein thrombosis of left upper extremity. PLAN: 1. Schedule and have consent signed for placement of port on right side, IV sedation, Gary Short M.D., Tuesday03/19/2017. 2. N.p.o. after midnight. 3. Zyvox 600 mg IV on-call to OR. 4. D5LR at 100 mL per hour. 5. Give Lovenox this morning. Then hold until after placement of port. 6. Good pulmonary toilet. 7. We will evaluate p.r.n. or in a.. Michelle Cook PA-C /[id number]
--- NOTE | 2017-03-18 08:37 | CR ---
Decreased dilatation of the small bowel loops compared to yesterday's examination.
--- NOTE | 2017-03-18 17:24 | PCM.PN ---
- General Info Date of Service: 03/18/17 Subjective Update: Mr. Geano has done well since yesterday, currently tolerating a soft low residue diet, denies abdominal pain, nausea, or vomiting. He's been walking in the hallway several times a day and feels as though his overall strength is improved. Port-A-Cath removed from the left yesterday with current plan for a new Port-A-Cath placement on the right tomorrow Functional Status: Reports: Tolerating Diet, Ambulating - Review of Systems General: Denies: Fever, Weakness, Chills Pulmonary: Reports: No Symptoms Cardiovascular: Reports: Edema. Denies: Chest Pain, Palpitations, Dyspnea on Exertion Gastrointestinal: Reports: No Symptoms - Patient Data Vitals - Most Recent: Last Vital Signs Temp 98.9 F 03/18/17 14:31 Pulse 102 H 03/18/17 14:31 Resp 17 03/18/17 14:31 BP 133/94 H 03/18/17 14:31 Pulse Ox 98 03/18/17 14:31 Weight - Most Recent: 196 lb I&O - Last 24 Hours: Intake & Output 03/18/17 03/18/17 03/18/17 06:59 14:59 22:59 Intake Total 1320 300 Output Total 500 100 1 Balance 820 200 -1 Lab Results Last 24 Hours: Laboratory Results - last 24 hr 03/18/17 Range/Units 05:59 Sodium 138 L (140-148) mmol/L Potassium 3.7 (3.6-5.2) mmol/L Chloride 105 (100-108) mmol/L Carbon Dioxide 23 (21-32) mmol/L Anion Gap 13.7 (5.0-14.0) mmol/L BUN 17 (7-18) mg/dL Creatinine 1.8 H (0.8-1.3) mg/dL Est Cr Clr Drug Dosing 31.14 mL/min Estimated GFR (MDRD) 36 L (>60) Glucose 100 (74-106) mg/dL Calcium 7.9 L (8.5-10.1) mg/dL Med Orders - Current: Current Medications Acetaminophen (Tylenol) 650 mg PO Q4H PRN PRN Reason: Pain (Mild 1-3)/fever Last Admin: 03/18/17 16:56 Dose: 650 mg Acetaminophen (Tylenol) 650 mg RECTAL Q4H PRN PRN Reason: Mild pain/fever Enoxaparin Sodium (Lovenox) 90 mg SUBCUT ONETIME ONE Stop: 03/18/17 18:01 Enoxaparin Sodium (Lovenox) 90 mg SUBCUT Q12HR [facility] Hydromorphone HCl (Dilaudid) 0.5 - 1 mg IVPUSH Q2H PRN PRN Reason: Pain (severe 7-10) Last Admin: 03/17/17 08:14 Dose: 0.5 mg Dextrose/Lactated Ringer's (Dextrose 5%-Lactated Ringers) 1,000 mls @ 100 mls/ hr IV ASDIRECTED [facility] Linezolid 600 mg/ Premix 300 mls @ 300 mls/hr IV ONETIME ONE Stop: 03/19/17 08:29 Lorazepam (Ativan) 0.5 - 1 mg IVPUSH Q4H PRN PRN Reason: Nausea/Vomiting Ondansetron HCl (Zofran Odt) 4 mg PO Q6H PRN PRN Reason: Nausea able to take PO Ondansetron HCl (Zofran) 4 mg IV Q6H PRN PRN Reason: Nausea/Vomiting Oxycodone HCl (Oxycodone) 5 mg PO Q4H PRN PRN Reason: Pain Last Admin: 03/18/17 16:56 Dose: 5 mg Pantoprazole Sodium (Protonix) 40 mg PO DAILY@0730 [facility] Last Admin: 03/18/17 08:20 Dose: 40 mg Discontinued Medications Bupivacaine HCl (Marcaine 0.5%) Confirm Administered Dose 50 ml .ROUTE .STK-MED ONE Stop: 03/17/17 07:22 Last Admin: 03/17/17 13:20 Dose: 5 ml Enoxaparin Sodium (Lovenox) 80 mg SUBCUT Q24H [facility] Last Admin: 03/15/17 17:00 Dose: 80 mg Enoxaparin Sodium (Lovenox) 80 mg SUBCUT Q12H [facility] Enoxaparin Sodium (Lovenox) 80 mg SUBCUT Q12H [facility] Stop: 03/18/17 10:00 Last Admin: 03/18/17 05:28 Dose: 80 mg Furosemide (Lasix) 60 mg IVPUSH ONETIME ONE Stop: 03/16/17 14:01 Last Admin: 03/16/17 16:27 Dose: 60 mg Hydromorphone HCl (Dilaudid) 0.5 mg IVPUSH ONETIME ONE Stop: 03/14/17 14:40 Last Admin: 03/14/17 14:43 Dose: 0.5 mg Sodium Chloride (Normal Saline) 1,000 mls @ 100 mls/hr IV ASDIRECTED [facility] Last Admin: 03/14/17 15:54 Dose: 100 mls/hr Dextrose/Lactated Ringer's (Dextrose 5%-Lactated Ringers) 1,000 mls @ 125 mls/ hr IV ASDIRECTED [facility] Last Admin: 03/15/17 06:14 Dose: 125 mls/hr Sodium Chloride (Normal Saline) 1,000 mls @ 100 mls/hr IV ASDIRECTED [facility] Last Admin: 03/17/17 00:05 Dose: 100 mls/hr Lidocaine/Epinephrine (Xylocaine 1% With Epinephrine 1:100,000) Confirm Administered Dose 50 ml .ROUTE .STK-MED ONE Stop: 03/17/17 07:23 Last Admin: 03/17/17 13:20 Dose: 5 ml Pantoprazole Sodium (Protonix Iv) 40 mg IV Q24H [facility] Last Admin: 03/15/17 00:48 Dose: Not Given Pantoprazole Sodium (Protonix Iv) 40 mg IV Q24H [facility] Last Admin: 03/14/17 19:45 Dose: 40 mg Pantoprazole Sodium (Protonix Iv) 40 mg IV Q24H [facility] Propofol (Diprivan 20 Ml) Confirm Administered Dose 200 mg .ROUTE .STK-MED ONE Stop: 03/17/17 07:42 - Exam Quality Assessment: DVT Prophylaxis General: Alert, Oriented, Cooperative, No Acute Distress Lungs: Clear to Auscultation, Normal Respiratory Effort Cardiovascular: Regular Rate, Regular Rhythm, No Murmurs GI/Abdominal Exam: Normal Bowel Sounds, Soft, Non-Tender Extremities: Non-Tender, Pedal Edema, Other (Persistent but improved edema left upper extremity) Skin: Warm, Dry - Problem List Review Problem List Initiated/Reviewed/Updated: Yes - My Orders Last 24 Hours: My Active Orders 03/17/17 18:56 Convert IV to Saline Lock [OM.PC] Routine 03/18/17 18:00 Enoxaparin [Lovenox] 90 mg SUBCUT ONETIME ONE 03/19/17 18:00 Enoxaparin [Lovenox] 90 mg SUBCUT Q12HR - Plan Plan:: ASSESSMENT AND PLAN - Left upper extremity DVT - provoked in the setting of cancer and left subclavian Port-A-Cath. -Enoxaparin 1 mg/kg every 12 hours based on improved creatinine clearance; -Start warfarin tomorrow after Port-A-Cath placement -pain control -New right-sided Port-A-Cath placement tomorrow -Hold Lovenox apparent in a.m. Probable partial small bowel obstruction - currently tolerating a soft low residue diet -Soft mechanical low residue diet -Nothing by mouth after midnight for Port-A-Cath placement in a.m. -Pain control -Nausea management if needed -Flat and upright in the morning -Surgical follow-up per Dr. Short Acute on chronic kidney injury - renal function has improved from admission, currently at baseline -Follow-up labs in a.m. Hyperkalemia-resolved -Recheck potassium tomorrow Pancreatic cancer - has been receiving outpatient chemotherapy and is followed by the [facility]. -Outpatient follow-up Maintenance issues - - DVT prophylaxis - enoxaparin - GI prophylaxis - PPI - Nutrition - full liquid diet - Stanford catheter - not indicated CODE STATUS - patient wishes to be full code at this time Admission justification - This patient will be admitted for inpatient services and is medically appropriate meeting medical necessity for inpatient admission as outlined in my documentation. I reasonably expect the patient will require inpatient services that span a period time over 2 midnights. I reasonably expect this patient to be discharged or transferred within 96 hours [facility]. Disposition - anticipate discharge home after the hospital stay Primary care physician - Dr. Raygoza
[2017-03-18] MEDS ORDERED: Enoxaparin 100 MG/1 ML Syringe SUBCUT ONE (18:00)
[2017-03-18] MEDS ORDERED: Enoxaparin 80 MG/0.8 ML Syringe SUBCUT ONE (18:00)
[2017-03-19] MEDS: Acetaminophen 325 MG Tab PO PRN ×2 (06:00→20:27)
[2017-03-19] MEDS: oxyCODONE 5 MG Tab PO PRN ×2 (06:00→20:27)
[2017-03-19] MEDS ORDERED: Linezolid 600 MG in Premix Bag 1 BAG IV ONE (07:30)
[2017-03-19] MEDS: Bupivacaine 0.5% 50 ML MDV ONE ×2 (07:34→09:05)
[2017-03-19] MEDS: Lidocaine 1% with EPINEPHrine 1:100,000 50 ML MDV ONE ×2 (07:34→09:05)
[2017-03-19] MEDS: Pantoprazole 40 MG Tab.CR PO SCH (08:18)
[2017-03-19] MEDS ORDERED: Propofol 200 MG/20 ML SDV ONE (08:29)
[2017-03-19] MEDS ORDERED: fentaNYL 100 MCG/2 ML SDV ONE (08:29)
[2017-03-19] MEDS ORDERED: Furosemide 40 MG/4 ML VIAL IVPUSH ONE (11:34)
--- NOTE | 2017-03-19 11:41 | PCM.PN ---
- General Info Date of Service: 03/19/17 Subjective Update: Mr. Genao has been stable since yesterday vital signs within desired range and he has remained afebrile. New Port-A-Cath was placed in the right earlier this morning by Dr. Short. Anticoagulation held this morning but will be resumed this afternoon. Denies significant shortness of breath or chest pain. No abdominal pain, nausea, or vomiting, currently tolerating soft mechanical diet. Functional Status: Reports: Pain Controlled, Tolerating Diet, Ambulating - Review of Systems General: Reports: No Symptoms Pulmonary: Reports: No Symptoms Cardiovascular: Reports: Edema. Denies: Chest Pain, Palpitations, Dyspnea on Exertion, Orthopnea, PND Gastrointestinal: Reports: No Symptoms - Patient Data Vitals - Most Recent: Last Vital Signs Temp 97.8 F 03/19/17 10:15 Pulse 97 03/19/17 11:00 Resp 16 03/19/17 11:00 BP 135/88 03/19/17 11:00 Pulse Ox 97 03/19/17 11:00 Weight - Most Recent: 196 lb I&O - Last 24 Hours: Intake & Output 03/18/17 03/19/17 03/19/17 22:59 06:59 14:59 Intake Total 350 548 300 Output Total 1 200 200 Balance 349 348 100 Med Orders - Current: Current Medications Acetaminophen (Tylenol) 650 mg PO Q4H PRN PRN Reason: Pain (Mild 1-3)/fever Last Admin: 03/19/17 06:00 Dose: 650 mg Acetaminophen (Tylenol) 650 mg RECTAL Q4H PRN PRN Reason: Mild pain/fever Enoxaparin Sodium (Lovenox) 90 mg SUBCUT Q12H [facility] Furosemide (Lasix) 60 mg IVPUSH ONETIME ONE Stop: 03/19/17 11:35 Hydromorphone HCl (Dilaudid) 0.5 - 1 mg IVPUSH Q2H PRN PRN Reason: Pain (severe 7-10) Last Admin: 03/17/17 08:14 Dose: 0.5 mg Lorazepam (Ativan) 0.5 - 1 mg IVPUSH Q4H PRN PRN Reason: Nausea/Vomiting Ondansetron HCl (Zofran Odt) 4 mg PO Q6H PRN PRN Reason: Nausea able to take PO Ondansetron HCl (Zofran) 4 mg IV Q6H PRN PRN Reason: Nausea/Vomiting Oxycodone HCl (Oxycodone) 5 mg PO Q4H PRN PRN Reason: Pain Last Admin: 03/19/17 06:00 Dose: 5 mg Pantoprazole Sodium (Protonix) 40 mg PO DAILY@0730 COUNTS INCLUDE 234 BEDS AT THE [facility] Last Admin: 03/19/17 08:18 Dose: Not Given Tamsulosin HCl (Flomax) 0.4 mg PO BEDTIME MIKE Discontinued Medications Bupivacaine HCl (Marcaine 0.5%) Confirm Administered Dose 50 ml .ROUTE .STK-MED ONE Stop: 03/17/17 07:22 Last Admin: 03/17/17 13:20 Dose: 5 ml Bupivacaine HCl (Marcaine 0.5%) Confirm Administered Dose 50 ml .ROUTE .STK-MED ONE Stop: 03/19/17 07:07 Last Admin: 03/19/17 09:05 Dose: 5 ml Enoxaparin Sodium (Lovenox) 80 mg SUBCUT Q24H COUNTS INCLUDE 234 BEDS AT THE [facility] Last Admin: 03/15/17 17:00 Dose: 80 mg Enoxaparin Sodium (Lovenox) 80 mg SUBCUT Q12H COUNTS INCLUDE 234 BEDS AT THE [facility] Enoxaparin Sodium (Lovenox) 80 mg SUBCUT Q12H COUNTS INCLUDE 234 BEDS AT THE [facility] Stop: 03/18/17 10:00 Last Admin: 03/18/17 05:28 Dose: 80 mg Enoxaparin Sodium (Lovenox) 90 mg SUBCUT ONETIME ONE Stop: 03/18/17 18:01 Last Admin: 03/18/17 17:42 Dose: 90 mg Fentanyl (Sublimaze) Confirm Administered Dose 100 mcg .ROUTE .STK-MED ONE Stop: 03/19/17 08:30 Furosemide (Lasix) 60 mg IVPUSH ONETIME ONE Stop: 03/16/17 14:01 Last Admin: 03/16/17 16:27 Dose: 60 mg Heparin Sodium (Porcine) (Heparin Lock Flush 100 Units/Ml) Confirm Administered Dose 1,000 units .ROUTE .STK-MED ONE Stop: 03/19/17 07:07 Last Admin: 03/19/17 09:10 Dose: 1,000 units Hydromorphone HCl (Dilaudid) 0.5 mg IVPUSH ONETIME ONE Stop: 03/14/17 14:40 Last Admin: 03/14/17 14:43 Dose: 0.5 mg Sodium Chloride (Normal Saline) 1,000 mls @ 100 mls/hr IV ASDIRECTED COUNTS INCLUDE 234 BEDS AT THE [facility] Last Admin: 03/14/17 15:54 Dose: 100 mls/hr Dextrose/Lactated Ringer's (Dextrose 5%-Lactated Ringers) 1,000 mls @ 125 mls/ hr IV ASDIRECTED COUNTS INCLUDE 234 BEDS AT THE [facility] Last Admin: 03/15/17 06:14 Dose: 125 mls/hr Sodium Chloride (Normal Saline) 1,000 mls @ 100 mls/hr IV ASDIRECTED COUNTS INCLUDE 234 BEDS AT THE [facility] Last Admin: 03/17/17 00:05 Dose: 100 mls/hr Dextrose/Lactated Ringer's (Dextrose 5%-Lactated Ringers) 1,000 mls @ 100 mls/ hr IV ASDIRECTED COUNTS INCLUDE 234 BEDS AT THE [facility] Last Admin: 03/19/17 00:10 Dose: 100 mls/hr Linezolid 600 mg/ Premix 300 mls @ 300 mls/hr IV ONETIME ONE Stop: 03/19/17 08:29 Last Admin: 03/19/17 08:41 Dose: 300 mls/hr Lidocaine/Epinephrine (Xylocaine 1% With Epinephrine 1:100,000) Confirm Administered Dose 50 ml .ROUTE .STK-MED ONE Stop: 03/17/17 07:23 Last Admin: 03/17/17 13:20 Dose: 5 ml Lidocaine/Epinephrine (Xylocaine 1% With Epinephrine 1:100,000) Confirm Administered Dose 50 ml .ROUTE .STK-MED ONE Stop: 03/19/17 07:07 Last Admin: 03/19/17 09:05 Dose: 5 ml Pantoprazole Sodium (Protonix Iv) 40 mg IV Q24H COUNTS INCLUDE 234 BEDS AT THE [facility] Last Admin: 03/15/17 00:48 Dose: Not Given Pantoprazole Sodium (Protonix Iv) 40 mg IV Q24H COUNTS INCLUDE 234 BEDS AT THE [facility] Last Admin: 03/14/17 19:45 Dose: 40 mg Pantoprazole Sodium (Protonix Iv) 40 mg IV Q24H COUNTS INCLUDE 234 BEDS AT THE [facility] Propofol (Diprivan 20 Ml) Confirm Administered Dose 200 mg .ROUTE .STK-MED ONE Stop: 03/17/17 07:42 Propofol (Diprivan 20 Ml) Confirm Administered Dose 200 mg .ROUTE .STK-MED ONE Stop: 03/19/17 08:30 - Exam Quality Assessment: DVT Prophylaxis General: Alert, Oriented, Cooperative Lungs: Clear to Auscultation, Normal Respiratory Effort Cardiovascular: Regular Rate, Regular Rhythm, Murmurs GI/Abdominal Exam: Normal Bowel Sounds, Soft, Non-Tender, No Organomegaly, No Distention Extremities: Non-Tender, Pedal Edema Skin: Warm, Dry - Problem List Review Problem List Initiated/Reviewed/Updated: Yes - My Orders Last 24 Hours: My Active Orders 03/19/17 10:52 Convert IV to Saline Lock [OM.PC] Routine 03/19/17 11:34 Furosemide [Lasix] 60 mg IVPUSH ONETIME ONE 03/19/17 18:00 Enoxaparin [Lovenox] 90 mg SUBCUT Q12H 03/19/17 Breakfast NPO After Midnight [Nothing per Oral After Midnight Diet] [DIET] 03/20/17 05:00 BASIC METABOLIC PANEL,BMP [CHEM] Timed - Plan Plan:: ASSESSMENT AND PLAN - Left upper extremity DVT - provoked in the setting of cancer and left subclavian Port-A-Cath. -Enoxaparin 1 mg/kg every 12 hours based on improved creatinine clearance; -Warfarin 7.5 mg by mouth today -pain control -New right-sided Port-A-Cath placement tomorrow Fluid overload-significant peripheral edema -Furosemide 60 mg IV now -Reassess in a.m. Bladder outlet obstruction-likely secondary to BPH -Flomax 0.4 mg by mouth daily -Reassess post void residuals Probable partial small bowel obstruction - currently tolerating a soft low residue diet -Soft mechanical low residue diet -Surgical follow-up per Dr. Short Acute on chronic kidney injury - renal function has improved from admission, currently at baseline -Follow-up labs in a.m. Hyperkalemia-resolved -Recheck potassium tomorrow Pancreatic cancer - has been receiving outpatient chemotherapy and is followed by the [facility]. -Outpatient follow-up Maintenance issues - - DVT prophylaxis - enoxaparin - GI prophylaxis - PPI - Nutrition - full liquid diet - Stanford catheter - not indicated CODE STATUS - patient wishes to be full code at this time Admission justification - This patient will be admitted for inpatient services and is medically appropriate meeting medical necessity for inpatient admission as outlined in my documentation. I reasonably expect the patient will require inpatient services that span a period time over 2 midnights. I reasonably expect this patient to be discharged or transferred within 96 hours after admission to the [facility]. Disposition - anticipate discharge home after the hospital stay Primary care physician - Dr. Raygoza
[2017-03-19] MEDS: Tamsulosin 0.4 MG Cap.ER PO SCH ×2 (11:48→20:24)
[2017-03-19] MEDS ORDERED: Furosemide 40 MG, Furosemide 20 MG IV ONE ×2 (12:15)
[2017-03-19] MEDS ORDERED: Warfarin 2.5 MG Tab PO ONE (13:00)
[2017-03-19] MEDS: Enoxaparin 100 MG/1 ML Syringe SUBCUT SCH (17:16)
[2017-03-19] MEDS ORDERED: Enoxaparin 80 MG/0.8 ML Syringe SUBCUT SCH (18:00)
[2017-03-20] MEDS: Acetaminophen 325 MG Tab PO PRN (04:12)
[2017-03-20] MEDS: oxyCODONE 5 MG Tab PO PRN (04:13)
[2017-03-20] MEDS: Enoxaparin 100 MG/1 ML Syringe SUBCUT SCH (06:55)
[2017-03-20] MEDS: Pantoprazole 40 MG Tab.CR PO SCH (08:07)
--- NOTE | 2017-03-20 10:37 | PN ---
DATE OF SERVICE: 03/19/2017 The patient has been afebrile with stable vital signs. The plan is to proceed with a new port insertion on the right side today. His Lovenox was held in terms of the p.m. dose, and we will restart that after that. Otherwise, he is retaining some urine with 350 mL on a postvoid residual. It sounds like it is a chronic problem, but we will start him on Flomax and see if that is helpful in that regard. Gary Short MD /[id number]
--- NOTE | 2017-03-20 10:58 | PCM.DCSUM1 ---
Discharge Summary - Hospital Course Brief History: Mr. Genao is an 81-year-old gentleman who is admitted through the emergency department with nausea vomiting and abdominal pain secondary to a partial small bowel obstruction. He also had significant left arm swelling on initial presentation and on evaluation with ultrasound was found to have a deep vein thrombosis involving the left upper extremity. - Discharge Data Discharge Date: 03/20/17 Discharge Disposition: Home, Self-Care 01 Condition: Fair - Discharge Diagnosis/Problem(s) (1) Partial small bowel obstruction SNOMED Code(s): 889117762 ICD Code: K56.600 - PARTIAL INTESTINAL OBSTRUCTION, UNSPECIFIED TO CAUSE Status: Acute Current Visit: Yes (2) Deep venous thrombosis of left upper extremity SNOMED Code(s): 689059512 ICD Code: I82.622 - ACUTE EMBOLISM AND THROMBOSIS OF DEEP VEINS OF L UP EXTREM Status: Acute Current Visit: Yes Qualifiers: Affected thrombotic vein of extremity: axillary Chronicity: acute Qualified Code(s): I82.A12 - Acute embolism and thrombosis of left axillary vein (3) Anemia of chronic disease SNOMED Code(s): 823381060 ICD Code: D63.8 - ANEMIA IN OTHER CHRONIC DISEASES CLASSIFIED ELSEWHERE Status: Acute Current Visit: Yes (4) Chronic kidney disease stage 3 SNOMED Code(s): 911593787 ICD Code: N18.3 - CHRONIC KIDNEY DISEASE, STAGE 3 (MODERATE) Status: Chronic Current Visit: No (5) Pancreatic cancer SNOMED Code(s): 482453412 ICD Code: C25.9 - MALIGNANT NEOPLASM OF PANCREAS, UNSPECIFIED Status: Chronic Current Visit: No Qualifiers: Pancreatic malignancy location: head of pancreas Qualified Code(s): C25.0 - Malignant neoplasm of head of pancreas - Patient Summary/Data Consults: Consultations 03/16/17 16:54 Consult to Physician [CONS] Routine Consulting Provider: Gary Short Courtesy Call Completed to Consulting Physician: Yes Reason for Consult: Removal of left Port-A-Cath Hospital Course: Mr. Genao is an 81-year-old gentleman with a known history of pancreatic cancer currently receiving chemotherapy. He had developed symptoms of nausea, vomiting, and abdominal pain and presented to the emergency room for further evaluation. CT scan of the abdomen showed evidence of a partial small bowel obstruction. He had been having small bowel movements and decision was made not to place an NG tube is it was felt that this obstruction was partial in nature. He also reported significant swelling in his left upper extremity on presentation to the emergency department. Venous Doppler studies of the left upper extremity did document fairly extensive deep vein thrombosis involving the arm. He was started on anticoagulation with Lovenox on admission and given IV fluids for hydration. He was kept nothing by mouth for the first few days of his hospital stay. Follow-up x-rays showed persistent evidence of bowel obstruction but he was having regular bowel movements so he was given a trial of clear liquid diet which was then advanced to full liquid and then to soft mechanical low residue. He tolerated these sites without significant difficulty and had no recurrence of his nausea, vomiting, or abdominal pain. He was seen and evaluated by Dr. Short because of his left arm deep vein thrombosis as well as his bowel obstruction. He was taken to the operating room for removal of his left-sided Port-A-Cath was was felt to be a contributing factor in his upper extremity deep vein thrombosis. 2 days later he was taken back to the operating room and a new Port-A-Cath was placed on the right side. After it became clear that his bowel obstruction could be managed conservatively he was started on oral anticoagulation with warfarin and received doses of 7.5 mg on each of the 2 days prior to discharge. On the day of discharge his INR remains subtherapeutic so he will be discharged home on subcutaneous Lovenox once a day as well as daily dosing of warfarin. INR will be obtained on the day after discharge by home care staff and further recommendations for dosing of his warfarin will be made at that time. His prescription for warfarin was given as 2.5 mg tablets to allow flexibility for dosing of the warfarin. He will be on once daily dosing of Lovenox 135 mg. He did develop peripheral edema during his hospital stay and will be discharged home on furosemide 40 mg by mouth daily. His creatinine was elevated from baseline admission but improved following IV hydration and was back to baseline by the time of discharge. Activity will be as tolerated and he's instructed to follow a soft mechanical low residue as well as low-sodium diet. Home care will see him for follow-up in assist in giving his Lovenox injections as well as obtaining INRs for follow-up of anticoagulation. Home physical therapy and occupational therapy will also be scheduled to help him slowly regaining some strength. Follow-up appointment will be scheduled with Dr. Short in 10 days, follow-up with Dr. Raygoza within 7 days. - Patient Instructions Diet: Low Sodium, GI Soft/Low Residue/Low Fiber Activity: As Tolerated Other/Special Instructions: Please arrange for home care after discharge with home physical therapy and occupational therapy. Home care nurse to give daily Lovenox injection. Home care nurse to please draw INR on Tuesday, March 21. Please schedule follow-up appointment with Dr. Short in 10 days. Please schedule follow-up appointment with Dr. Raygoza within one week. - Discharge Plan Prescriptions/Med Rec: Enoxaparin Sodium [Lovenox] 135 mg SQ DAILY #5 ml Furosemide [Lasix] 40 mg PO DAILY #30 tablet Tamsulosin [Flomax] 0.4 mg PO BEDTIME #30 cap.er Warfarin [Coumadin] 7.5 mg PO DAILY #90 tablet Home Medications: Home Meds Multivitamin with Minerals [Multiple Vitamin] 1 each PO DAILY 11/19/13 [History] [place]-3/DHA/Epa/Fish Oil [Fish Oil 1,000 mg Softgel] 1 each PO DAILY 11/19/13 [ History] Nitroglycerin [Nitrostat] 0.4 mg SL ASDIRECTED 07/03/15 [History] Melatonin 5 mg PO BEDTIME PRN 08/19/16 [History] Cholecalciferol (Vitamin D3) [Vitamin D3] 1 tab PO DAILY 10/15/16 [History] Docusate Sodium [Colace Clear] 50 mg PO BID 10/15/16 [History] Prochlorperazine Maleate [Compazine] 10 mg PO ASDIRECTED PRN 10/15/16 [History] Hydrocodone/Acetaminophen [Hydrocodon-Acetaminophn 10-325] 1 tab PO QID PRN [History] Enoxaparin Sodium [Lovenox] 135 mg SQ DAILY #5 ml 03/20/17 [Rx] Furosemide [Lasix] 40 mg PO DAILY #30 tablet 03/20/17 [Rx] Tamsulosin [Flomax] 0.4 mg PO BEDTIME #30 cap.er 03/20/17 [Rx] Warfarin [Coumadin] 7.5 mg PO DAILY #90 tablet 03/20/17 [Rx] Referrals: Bora Raygoza MD [Primary Care Provider] - - Patient Data Vitals - Most Recent: Last Vital Signs Temp 98.3 F 03/20/17 07:41 Pulse 93 03/20/17 07:41 Resp 16 03/20/17 07:41 BP 121/77 03/20/17 07:41 Pulse Ox 98 03/20/17 07:41 Weight - Most Recent: 196 lb I&O - Last 24 hours: Intake & Output 03/19/17 03/20/17 03/20/17 22:59 06:59 14:59 Intake Total 360 360 360 Output Total 2580 300 Balance -2220 60 360 Lab Results - Last 24 hrs: Laboratory Results - last 24 hr 03/19/17 03/20/17 03/20/17 Range/Units 11:42 06:16 06:16 Hgb (12.0-15.0) g/dL Hct (40.0-54.0) % PT 11.3 12.6 H (9.5-12.0) sec INR 1.05 1.17 (0.80-1.20) Sodium 140 (140-148) mmol/L Potassium 3.6 (3.6-5.2) mmol/L Chloride 106 (100-108) mmol/L Carbon Dioxide 26 (21-32) mmol/L Anion Gap 7.9 (5.0-14.0) mmol/L BUN 15 (7-18) mg/dL Creatinine 1.9 H (0.8-1.3) mg/dL Est Cr Clr Drug Dosing 29.50 mL/min Estimated GFR (MDRD) 34 L (>60) Glucose 102 (74-106) mg/dL Calcium 8.0 L (8.5-10.1) mg/dL 03/20/17 Range/Units 07:02 Hgb 9.4 L (12.0-15.0) g/dL Hct 28.7 L (40.0-54.0) % PT (9.5-12.0) sec INR (0.80-1.20) Sodium (140-148) mmol/L Potassium (3.6-5.2) mmol/L Chloride (100-108) mmol/L Carbon Dioxide (21-32) mmol/L Anion Gap (5.0-14.0) mmol/L BUN (7-18) mg/dL Creatinine (0.8-1.3) mg/dL Est Cr Clr Drug Dosing mL/min Estimated GFR (MDRD) (>60) Glucose (74-106) mg/dL Calcium (8.5-10.1) mg/dL Med Orders - Current: Current Medications Acetaminophen (Tylenol) 650 mg PO Q4H PRN PRN Reason: Pain (Mild 1-3)/fever Last Admin: 03/20/17 04:12 Dose: 650 mg Acetaminophen (Tylenol) 650 mg RECTAL Q4H PRN PRN Reason: Mild pain/fever Enoxaparin Sodium (Lovenox) 90 mg SUBCUT Q12H [facility] Last Admin: 03/20/17 06:55 Dose: 90 mg Furosemide (Lasix) 40 mg PO DAILY [facility] Hydromorphone HCl (Dilaudid) 0.5 - 1 mg IVPUSH Q2H PRN PRN Reason: Pain (severe 7-10) Last Admin: 03/17/17 08:14 Dose: 0.5 mg Lorazepam (Ativan) 0.5 - 1 mg IVPUSH Q4H PRN PRN Reason: Nausea/Vomiting Ondansetron HCl (Zofran Odt) 4 mg PO Q6H PRN PRN Reason: Nausea able to take PO Ondansetron HCl (Zofran) 4 mg IV Q6H PRN PRN Reason: Nausea/Vomiting Oxycodone HCl (Oxycodone) 5 mg PO Q4H PRN PRN Reason: Pain Last Admin: 03/20/17 04:13 Dose: 5 mg Pantoprazole Sodium (Protonix) 40 mg PO DAILY@0730 [facility] Last Admin: 03/20/17 08:07 Dose: 40 mg Tamsulosin HCl (Flomax) 0.4 mg PO BEDTIME [facility] Last Admin: 03/19/17 20:24 Dose: 0.4 mg Warfarin Sodium (Coumadin) 7.5 mg PO ONETIME ONE Stop: 03/20/17 11:01 Discontinued Medications Bupivacaine HCl (Marcaine 0.5%) Confirm Administered Dose 50 ml .ROUTE .STK-MED ONE Stop: 03/17/17 07:22 Last Admin: 03/17/17 13:20 Dose: 5 ml Bupivacaine HCl (Marcaine 0.5%) Confirm Administered Dose 50 ml .ROUTE .STK-MED ONE Stop: 03/19/17 07:07 Last Admin: 03/19/17 09:05 Dose: 5 ml Enoxaparin Sodium (Lovenox) 80 mg SUBCUT Q24H [facility] Last Admin: 03/15/17 17:00 Dose: 80 mg Enoxaparin Sodium (Lovenox) 80 mg SUBCUT Q12H [facility] Enoxaparin Sodium (Lovenox) 80 mg SUBCUT Q12H [facility] Stop: 03/18/17 10:00 Last Admin: 03/18/17 05:28 Dose: 80 mg Enoxaparin Sodium (Lovenox) 90 mg SUBCUT ONETIME ONE Stop: 03/18/17 18:01 Last Admin: 03/18/17 17:42 Dose: 90 mg Fentanyl (Sublimaze) Confirm Administered Dose 100 mcg .ROUTE .STK-MED ONE Stop: 03/19/17 08:30 Furosemide (Lasix) 60 mg IVPUSH ONETIME ONE Stop: 03/16/17 14:01 Last Admin: 03/16/17 16:27 Dose: 60 mg Furosemide 40 mg/ Furosemide (20 mg) 60 mg IV ONETIME ONE Stop: 03/19/17 12:16 Last Admin: 03/19/17 13:25 Dose: 60 mg Heparin Sodium (Porcine) (Heparin Lock Flush 100 Units/Ml) Confirm Administered Dose 1,000 units .ROUTE .STK-MED ONE Stop: 03/19/17 07:07 Last Admin: 03/19/17 09:10 Dose: 1,000 units Hydromorphone HCl (Dilaudid) 0.5 mg IVPUSH ONETIME ONE Stop: 03/14/17 14:40 Last Admin: 03/14/17 14:43 Dose: 0.5 mg Sodium Chloride (Normal Saline) 1,000 mls @ 100 mls/hr IV ASDIRECTED MIKE Last Admin: 03/14/17 15:54 Dose: 100 mls/hr Dextrose/Lactated Ringer's (Dextrose 5%-Lactated Ringers) 1,000 mls @ 125 mls/ hr IV ASDIRECTED [facility] Last Admin: 03/15/17 06:14 Dose: 125 mls/hr Sodium Chloride (Normal Saline) 1,000 mls @ 100 mls/hr IV ASDIRECTED [facility] Last Admin: 03/17/17 00:05 Dose: 100 mls/hr Dextrose/Lactated Ringer's (Dextrose 5%-Lactated Ringers) 1,000 mls @ 100 mls/ hr IV ASDIRECTED [facility] Last Admin: 03/19/17 00:10 Dose: 100 mls/hr Linezolid 600 mg/ Premix 300 mls @ 300 mls/hr IV ONETIME ONE Stop: 03/19/17 08:29 Last Admin: 03/19/17 08:41 Dose: 300 mls/hr Lidocaine/Epinephrine (Xylocaine 1% With Epinephrine 1:100,000) Confirm Administered Dose 50 ml .ROUTE .STK-MED ONE Stop: 03/17/17 07:23 Last Admin: 03/17/17 13:20 Dose: 5 ml Lidocaine/Epinephrine (Xylocaine 1% With Epinephrine 1:100,000) Confirm Administered Dose 50 ml .ROUTE .STK-MED ONE Stop: 03/19/17 07:07 Last Admin: 03/19/17 09:05 Dose: 5 ml Pantoprazole Sodium (Protonix Iv) 40 mg IV Q24H [facility] Last Admin: 03/15/17 00:48 Dose: Not Given Pantoprazole Sodium (Protonix Iv) 40 mg IV Q24H [facility] Last Admin: 03/14/17 19:45 Dose: 40 mg Pantoprazole Sodium (Protonix Iv) 40 mg IV Q24H [facility] Propofol (Diprivan 20 Ml) Confirm Administered Dose 200 mg .ROUTE .STK-MED ONE Stop: 03/17/17 07:42 Propofol (Diprivan 20 Ml) Confirm Administered Dose 200 mg .ROUTE .STK-MED ONE Stop: 03/19/17 08:30 Warfarin Sodium (Coumadin) 7.5 mg PO ONETIME ONE Stop: 03/19/17 13:01 Last Admin: 03/19/17 13:26 Dose: 7.5 mg *Q Meaningful Use (DIS) - VTE *Q VTE Criteria *Q: - Stroke *Q Stroke Criteria *Q: - AMI *Q AMI Criteria *Q:
[2017-03-20] MEDS ORDERED: Warfarin 2.5 MG Tab PO ONE (11:00)
[2017-03-20] MEDS: Furosemide 40 MG Tab PO SCH (11:24)
[2017-03-20] MEDS ORDERED: Diltiazem 25 MG/5 ML SDV IVPUSH ONE (15:51)
--- NOTE | 2017-03-20 16:04 | PCM.PN ---
- General Info Date of Service: 03/20/17 Subjective Update: When I saw Mr. Genao earlier today he felt as though he was ready for discharge , shortly after discharge orders and discharge summary were completed he reported to nursing staff that he was feeling unsteady with ambulation and dizzy. Was thought possibly that he was intravascularly volume depleted because of diuretic therapy and possible effect of Flomax. Blood pressure was stable at that time. He was encouraged to take in good fluids and decision was made to monitor him into the afternoon. He continued to feel unbalanced with activity but denied symptoms of vertigo or specific lightheadedness. Heart rate was noted to be low by nursing staff and EKG was obtained which actually showed atrial fibrillation and rapid ventricular response rate in the range of 110- 120. he was further evaluated and not felt to be safe for discharge to home today. - Review of Systems General: Reports: No Symptoms Pulmonary: Reports: No Symptoms Cardiovascular: Reports: Edema. Denies: Chest Pain, Palpitations, Dyspnea on Exertion, Orthopnea, PND, Lightheadedness Gastrointestinal: Reports: No Symptoms Neurological: Reports: Dizziness, Difficulty Walking. Denies: Headache, Numbness, Paresthesia, Weakness Psychiatric: Reports: No Symptoms - Patient Data Vitals - Most Recent: Last Vital Signs Temp 99.0 F 03/20/17 13:35 Pulse 47 L 03/20/17 13:35 Resp 16 03/20/17 13:35 BP 120/79 03/20/17 13:35 Pulse Ox 98 03/20/17 13:35 Weight - Most Recent: 196 lb I&O - Last 24 Hours: Intake & Output 03/20/17 03/20/17 03/20/17 06:59 14:59 22:59 Intake Total 360 1100 Output Total 300 200 100 Balance 60 900 -100 Lab Results Last 24 Hours: Laboratory Results - last 24 hr 03/20/17 03/20/17 03/20/17 Range/Units 06:16 06:16 07:02 Hgb 9.4 L (12.0-15.0) g/dL Hct 28.7 L (40.0-54.0) % PT 12.6 H (9.5-12.0) sec INR 1.17 (0.80-1.20) Sodium 140 (140-148) mmol/L Potassium 3.6 (3.6-5.2) mmol/L Chloride 106 (100-108) mmol/L Carbon Dioxide 26 (21-32) mmol/L Anion Gap 7.9 (5.0-14.0) mmol/L BUN 15 (7-18) mg/dL Creatinine 1.9 H (0.8-1.3) mg/dL Est Cr Clr Drug Dosing 29.50 mL/min Estimated GFR (MDRD) 34 L (>60) Glucose 102 (74-106) mg/dL Calcium 8.0 L (8.5-10.1) mg/dL Med Orders - Current: Current Medications Acetaminophen (Tylenol) 650 mg PO Q4H PRN PRN Reason: Pain (Mild 1-3)/fever Last Admin: 03/20/17 04:12 Dose: 650 mg Enoxaparin Sodium (Lovenox) 135 mg SUBCUT DAILY MIKE Furosemide (Lasix) 40 mg PO DAILY [facility] Last Admin: 03/20/17 11:24 Dose: Not Given Diltiazem HCl 100 mg/ Sodium (Chloride) 100 mls @ 5 mls/hr IV TITRATE MIKE; 5 MG /HR PRN Reason: Protocol Ondansetron HCl (Zofran Odt) 4 mg PO Q6H PRN PRN Reason: Nausea able to take PO Oxycodone HCl (Oxycodone) 5 mg PO Q4H PRN PRN Reason: Pain Last Admin: 03/20/17 04:13 Dose: 5 mg Pantoprazole Sodium (Protonix) 40 mg PO DAILY@0730 [facility] Last Admin: 03/20/17 08:07 Dose: 40 mg Tamsulosin HCl (Flomax) 0.4 mg PO BEDTIME [facility] Last Admin: 03/19/17 20:24 Dose: 0.4 mg Discontinued Medications Acetaminophen (Tylenol) 650 mg RECTAL Q4H PRN PRN Reason: Mild pain/fever Bupivacaine HCl (Marcaine 0.5%) Confirm Administered Dose 50 ml .ROUTE .STK-MED ONE Stop: 03/17/17 07:22 Last Admin: 03/17/17 13:20 Dose: 5 ml Bupivacaine HCl (Marcaine 0.5%) Confirm Administered Dose 50 ml .ROUTE .STK-MED ONE Stop: 03/19/17 07:07 Last Admin: 03/19/17 09:05 Dose: 5 ml Diltiazem HCl (Diltiazem) 20 mg IVPUSH ONETIME ONE Stop: 03/20/17 15:52 Enoxaparin Sodium (Lovenox) 80 mg SUBCUT Q24H [facility] Last Admin: 03/15/17 17:00 Dose: 80 mg Enoxaparin Sodium (Lovenox) 80 mg SUBCUT Q12H MIKE Enoxaparin Sodium (Lovenox) 80 mg SUBCUT Q12H MIKE Stop: 03/18/17 10:00 Last Admin: 03/18/17 05:28 Dose: 80 mg Enoxaparin Sodium (Lovenox) 90 mg SUBCUT ONETIME ONE Stop: 03/18/17 18:01 Last Admin: 03/18/17 17:42 Dose: 90 mg Enoxaparin Sodium (Lovenox) 90 mg SUBCUT Q12H [facility] Last Admin: 03/20/17 06:55 Dose: 90 mg Fentanyl (Sublimaze) Confirm Administered Dose 100 mcg .ROUTE .STK-MED ONE Stop: 03/19/17 08:30 Furosemide (Lasix) 60 mg IVPUSH ONETIME ONE Stop: 03/16/17 14:01 Last Admin: 03/16/17 16:27 Dose: 60 mg Furosemide 40 mg/ Furosemide (20 mg) 60 mg IV ONETIME ONE Stop: 03/19/17 12:16 Last Admin: 03/19/17 13:25 Dose: 60 mg Heparin Sodium (Porcine) (Heparin Lock Flush 100 Units/Ml) Confirm Administered Dose 1,000 units .ROUTE .STK-MED ONE Stop: 03/19/17 07:07 Last Admin: 03/19/17 09:10 Dose: 1,000 units Hydromorphone HCl (Dilaudid) 0.5 mg IVPUSH ONETIME ONE Stop: 03/14/17 14:40 Last Admin: 03/14/17 14:43 Dose: 0.5 mg Hydromorphone HCl (Dilaudid) 0.5 - 1 mg IVPUSH Q2H PRN PRN Reason: Pain (severe 7-10) Last Admin: 03/17/17 08:14 Dose: 0.5 mg Sodium Chloride (Normal Saline) 1,000 mls @ 100 mls/hr IV ASDIRECTED [facility] Last Admin: 03/14/17 15:54 Dose: 100 mls/hr Dextrose/Lactated Ringer's (Dextrose 5%-Lactated Ringers) 1,000 mls @ 125 mls/ hr IV ASDIRECTED [facility] Last Admin: 03/15/17 06:14 Dose: 125 mls/hr Sodium Chloride (Normal Saline) 1,000 mls @ 100 mls/hr IV ASDIRECTED [facility] Last Admin: 03/17/17 00:05 Dose: 100 mls/hr Dextrose/Lactated Ringer's (Dextrose 5%-Lactated Ringers) 1,000 mls @ 100 mls/ hr IV ASDIRECTED [facility] Last Admin: 03/19/17 00:10 Dose: 100 mls/hr Linezolid 600 mg/ Premix 300 mls @ 300 mls/hr IV ONETIME ONE Stop: 03/19/17 08:29 Last Admin: 03/19/17 08:41 Dose: 300 mls/hr Lidocaine/Epinephrine (Xylocaine 1% With Epinephrine 1:100,000) Confirm Administered Dose 50 ml .ROUTE .STK-MED ONE Stop: 03/17/17 07:23 Last Admin: 03/17/17 13:20 Dose: 5 ml Lidocaine/Epinephrine (Xylocaine 1% With Epinephrine 1:100,000) Confirm Administered Dose 50 ml .ROUTE .STK-MED ONE Stop: 03/19/17 07:07 Last Admin: 03/19/17 09:05 Dose: 5 ml Lorazepam (Ativan) 0.5 - 1 mg IVPUSH Q4H PRN PRN Reason: Nausea/Vomiting Ondansetron HCl (Zofran) 4 mg IV Q6H PRN PRN Reason: Nausea/Vomiting Pantoprazole Sodium (Protonix Iv) 40 mg IV Q24H [facility] Last Admin: 03/15/17 00:48 Dose: Not Given Pantoprazole Sodium (Protonix Iv) 40 mg IV Q24H [facility] Last Admin: 03/14/17 19:45 Dose: 40 mg Pantoprazole Sodium (Protonix Iv) 40 mg IV Q24H [facility] Propofol (Diprivan 20 Ml) Confirm Administered Dose 200 mg .ROUTE .STK-MED ONE Stop: 03/17/17 07:42 Propofol (Diprivan 20 Ml) Confirm Administered Dose 200 mg .ROUTE .STK-MED ONE Stop: 03/19/17 08:30 Warfarin Sodium (Coumadin) 7.5 mg PO ONETIME ONE Stop: 03/19/17 13:01 Last Admin: 03/19/17 13:26 Dose: 7.5 mg Warfarin Sodium (Coumadin) 7.5 mg PO ONETIME ONE Stop: 03/20/17 11:01 Last Admin: 03/20/17 11:29 Dose: 7.5 mg - Exam Quality Assessment: DVT Prophylaxis General: Alert, Oriented, Cooperative, Mild Distress Lungs: Clear to Auscultation, Normal Respiratory Effort Cardiovascular: Irregular Rhythm, Tachycardia, Murmurs GI/Abdominal Exam: Normal Bowel Sounds, Soft, Non-Tender, No Organomegaly, No Distention Extremities: Non-Tender, Pedal Edema Neurological: No New Focal Deficit, Normal Speech, Sensation Intact, Cranial Nerves Intact. No: Normal Gait - Problem List & Annotations (1) Partial small bowel obstruction SNOMED Code(s): 907031304 Code(s): K56.600 - PARTIAL INTESTINAL OBSTRUCTION, UNSPECIFIED TO CAUSE Status: Acute Current Visit: Yes (2) Deep venous thrombosis of left upper extremity SNOMED Code(s): 604966847 Code(s): I82.622 - ACUTE EMBOLISM AND THROMBOSIS OF DEEP VEINS OF L UP EXTREM Status: Acute Current Visit: Yes Qualifiers: Affected thrombotic vein of extremity: axillary Chronicity: acute Qualified Code(s): I82.A12 - Acute embolism and thrombosis of left axillary vein (3) Anemia of chronic disease SNOMED Code(s): 011720558 Code(s): D63.8 - ANEMIA IN OTHER CHRONIC DISEASES CLASSIFIED ELSEWHERE Status: Acute Current Visit: Yes (4) Chronic kidney disease stage 3 SNOMED Code(s): 885516774 Code(s): N18.3 - CHRONIC KIDNEY DISEASE, STAGE 3 (MODERATE) Status: Chronic Current Visit: No (5) Pancreatic cancer SNOMED Code(s): 110555934 Code(s): C25.9 - MALIGNANT NEOPLASM OF PANCREAS, UNSPECIFIED Status: Chronic Current Visit: No Qualifiers: Pancreatic malignancy location: head of pancreas Qualified Code(s): C25.0 - Malignant neoplasm of head of pancreas (6) Paroxysmal atrial fibrillation with RVR SNOMED Code(s): 571406458 Code(s): I48.0 - PAROXYSMAL ATRIAL FIBRILLATION Status: Acute Current Visit: Yes - Problem List Review Problem List Initiated/Reviewed/Updated: Yes - My Orders Last 24 Hours: My Active Orders 03/20/17 10:00 Furosemide [Lasix] 40 mg PO DAILY 03/20/17 10:52 Ready for Discharge [RC] PER UNIT ROUTINE 03/20/17 13:44 EKG 12 Lead [EK] Stat 03/20/17 15:51 Vital Signs [RC] Q1H Head wo Cont [CT] Stat 03/20/17 15:53 Patient Status Manage Transfer [TRANSFER] Routine 03/20/17 15:55 Orthostatic Vital Signs [RC] Q6HR 03/20/17 16:00 Diltiazem [Cardizem] 100 mg Sodium Chloride 0.9% [Normal Saline] 100 ml IV TITRATE 03/21/17 05:00 BASIC METABOLIC PANEL,BMP [CHEM] Timed CBC WITH AUTO DIFF [HEME] Timed 03/21/17 05:11 INR,PT,PROTHROMBIN TIME [COAG] AM 03/21/17 09:00 Enoxaparin [Lovenox] 135 mg SUBCUT DAILY - Plan Plan:: ASSESSMENT AND PLAN - Atrial fibrillation with rapid ventricular response-may be a contributing factor in dizziness and imbalance -Transfer to ICU for further evaluation and management -Diltiazem 20 mg IV bolus -Diltiazem continuous infusion 5 mg per hour -Nothing by mouth after midnight for possible cardioversion in a.m. -Echocardiogram in a.m. Imbalance-new symptom obvious unsteadiness with standing, neurologic exam is otherwise unremarkable -Orthostatic vital signs every 6 hours -CT scan of head without contrast -Consider MRI in a.m. Left upper extremity DVT - provoked in the setting of cancer and left subclavian Port-A-Cath. -Enoxaparin 1.5 mg/kg every 24 hours -Warfarin 7.5 mg by mouth today -Repeat INR in a.m. -pain control Fluid overload-significant peripheral edema -Furosemide 40 mg by mouth daily -Reassess in a.m. Bladder outlet obstruction-likely secondary to BPH -Flomax 0.4 mg by mouth daily -Reassess post void residuals Probable partial small bowel obstruction - currently tolerating a soft low residue diet -Soft mechanical low residue diet -Surgical follow-up per Dr. Short Acute on chronic kidney injury - renal function has improved from admission, currently at baseline -Follow-up labs in a.m. Hyperkalemia-resolved -Recheck potassium tomorrow Pancreatic cancer - has been receiving outpatient chemotherapy and is followed by the [facility]. -Outpatient follow-up Maintenance issues - - DVT prophylaxis - enoxaparin - GI prophylaxis - PPI - Nutrition - full liquid diet - Stanford catheter - not indicated CODE STATUS - patient wishes to be full code at this time Admission justification - This patient will be admitted for inpatient services and is medically appropriate meeting medical necessity for inpatient admission as outlined in my documentation. I reasonably expect the patient will require inpatient services that span a period time over 2 midnights. I reasonably expect this patient to be discharged or transferred within 96 hours after admission to the [facility]. Disposition - anticipate discharge home after the hospital stay Primary care physician - Dr. Raygoza
[2017-03-20] MEDS: Diltiazem 100 MG in Sodium Chloride 0.9% 100 ML IV SCH (16:23)
[2017-03-20] MEDS: LORazepam 2 MG/ML MDV IVPUSH PRN (19:45)
[2017-03-20] MEDS: Tamsulosin 0.4 MG Cap.ER PO SCH (22:42)
[2017-03-20] MEDS: Melatonin 3 MG Tab PO PRN (23:22)
[2017-03-21] MEDS: Diltiazem 100 MG in Sodium Chloride 0.9% 100 ML IV SCH (07:33)
[2017-03-21] MEDS: ENOXAPARIN SUBCUT SCH ×2 (08:29)
--- NOTE | 2017-03-21 08:58 | PCM.PN ---
- General Info Date of Service: 03/21/17 Functional Status: Reports: Pain Controlled, Tolerating Diet - Review of Systems Gastrointestinal: Denies: Abdominal Pain Neurological: Reports: Dizziness, Difficulty Walking Systems Review Comment:: No acute events overnight. Feels weak and tired but otherwise feels okay. No complaints of headache. No significant dizziness today. No complaints of shortness of breath. Mild abdominal pain at most. He remained in atrial fibrillation this morning and we did perform a cardioversion. Post procedure telemetry suggested sinus rhythm with some PACs but EKG confirmed that he was still in atrial fibrillation. MRI is pending. - Patient Data Vitals - Most Recent: Last Vital Signs Temp 36.8 C 03/21/17 08:27 Pulse 90 03/21/17 08:27 Resp 22 H 03/21/17 08:27 BP 114/72 03/21/17 08:27 Pulse Ox 96 03/21/17 08:27 Orthostatic Blood Pressure [ 132/83 Standing] Orthostatic Blood Pressure [ 126/87 Sitting] Orthostatic Blood Pressure [ 133/65 Supine] Weight - Most Recent: 88.904 kg I&O - Last 24 Hours: Intake & Output 03/20/17 03/21/17 03/21/17 22:59 06:59 14:59 Intake Total 429 92 Output Total 275 275 Balance 154 -183 Lab Results Last 24 Hours: Laboratory Results - last 24 hr 03/21/17 03/21/17 03/21/17 Range/Units 05:10 05:10 05:10 WBC 7.5 (4.5-11.0) K/uL RBC 2.98 L (4.30-5.90) M/uL Hgb 9.3 L (12.0-15.0) g/dL Hct 27.8 L (40.0-54.0) % MCV 93 (80-98) fL MCH 31 (27-31) pg MCHC 34 (32-36) % Plt Count 294 (150-400) K/uL Neut % (Auto) 70 H (36-66) % Lymph % (Auto) 16 L (24-44) % [place] % (Auto) 13 H (2-6) % Eos % (Auto) 1 L (2-4) % Baso % (Auto) 0 (0-1) % PT 19.1 H (9.5-12.0) sec INR 1.74 H (0.80-1.20) Sodium 141 (140-148) mmol/L Potassium 3.9 (3.6-5.2) mmol/L Chloride 106 (100-108) mmol/L Carbon Dioxide 26 (21-32) mmol/L Anion Gap 9.0 (5.0-14.0) mmol/L BUN 15 (7-18) mg/dL Creatinine 1.7 H (0.8-1.3) mg/dL Est Cr Clr Drug Dosing 32.97 mL/min Estimated GFR (MDRD) 39 L (>60) Glucose 102 (74-106) mg/dL Calcium 7.9 L (8.5-10.1) mg/dL Med Orders - Current: Current Medications Acetaminophen (Tylenol) 650 mg PO Q4H PRN PRN Reason: Pain (Mild 1-3)/fever Last Admin: 03/20/17 04:12 Dose: 650 mg Enoxaparin Sodium 35 mg/ (Enoxaparin Sodium 100 mg) 135 mg SUBCUT DAILY MIKE Last Admin: 03/21/17 08:29 Dose: 135 mg Furosemide (Lasix) 40 mg PO DAILY [facility] Last Admin: 03/20/17 11:24 Dose: Not Given Diltiazem HCl 100 mg/ Sodium (Chloride) 100 mls @ 5 mls/hr IV TITRATE MIKE; 5 MG /HR PRN Reason: Protocol Last Admin: 03/21/17 07:33 Dose: 5 mg/hr, 5 mls/hr Lorazepam (Ativan) 0.5 mg IVPUSH Q2H PRN PRN Reason: Anxiety Last Admin: 03/20/17 19:45 Dose: 0.5 mg Melatonin (Melatonin) 6 mg PO BEDTIME PRN PRN Reason: Sleep Last Admin: 03/20/17 23:22 Dose: 6 mg Ondansetron HCl (Zofran Odt) 4 mg PO Q6H PRN PRN Reason: Nausea able to take PO Oxycodone HCl (Oxycodone) 5 mg PO Q4H PRN PRN Reason: Pain Last Admin: 03/20/17 04:13 Dose: 5 mg Pantoprazole Sodium (Protonix) 40 mg PO DAILY@0730 [facility] Last Admin: 03/20/17 08:07 Dose: 40 mg Tamsulosin HCl (Flomax) 0.4 mg PO BEDTIME [facility] Last Admin: 03/20/17 22:42 Dose: 0.4 mg Warfarin Sodium (Coumadin) 5 mg PO DAILY@1300 [facility] Discontinued Medications Acetaminophen (Tylenol) 650 mg RECTAL Q4H PRN PRN Reason: Mild pain/fever Bupivacaine HCl (Marcaine 0.5%) Confirm Administered Dose 50 ml .ROUTE .STK-MED ONE Stop: 03/17/17 07:22 Last Admin: 03/17/17 13:20 Dose: 5 ml Bupivacaine HCl (Marcaine 0.5%) Confirm Administered Dose 50 ml .ROUTE .STK-MED ONE Stop: 03/19/17 07:07 Last Admin: 03/19/17 09:05 Dose: 5 ml Diltiazem HCl (Diltiazem) 20 mg IVPUSH ONETIME ONE Stop: 03/20/17 15:52 Last Admin: 03/20/17 16:21 Dose: 20 mg Enoxaparin Sodium (Lovenox) 80 mg SUBCUT Q24H [facility] Last Admin: 03/15/17 17:00 Dose: 80 mg Enoxaparin Sodium (Lovenox) 80 mg SUBCUT Q12H [facility] Enoxaparin Sodium (Lovenox) 80 mg SUBCUT Q12H [facility] Stop: 03/18/17 10:00 Last Admin: 03/18/17 05:28 Dose: 80 mg Enoxaparin Sodium (Lovenox) 90 mg SUBCUT ONETIME ONE Stop: 03/18/17 18:01 Last Admin: 03/18/17 17:42 Dose: 90 mg Enoxaparin Sodium (Lovenox) 90 mg SUBCUT Q12H [facility] Last Admin: 03/20/17 06:55 Dose: 90 mg Fentanyl (Sublimaze) Confirm Administered Dose 100 mcg .ROUTE .STK-MED ONE Stop: 03/19/17 08:30 Furosemide (Lasix) 60 mg IVPUSH ONETIME ONE Stop: 03/16/17 14:01 Last Admin: 03/16/17 16:27 Dose: 60 mg Furosemide 40 mg/ Furosemide (20 mg) 60 mg IV ONETIME ONE Stop: 03/19/17 12:16 Last Admin: 03/19/17 13:25 Dose: 60 mg Heparin Sodium (Porcine) (Heparin Lock Flush 100 Units/Ml) Confirm Administered Dose 1,000 units .ROUTE .STK-MED ONE Stop: 03/19/17 07:07 Last Admin: 03/19/17 09:10 Dose: 1,000 units Hydromorphone HCl (Dilaudid) 0.5 mg IVPUSH ONETIME ONE Stop: 03/14/17 14:40 Last Admin: 03/14/17 14:43 Dose: 0.5 mg Hydromorphone HCl (Dilaudid) 0.5 - 1 mg IVPUSH Q2H PRN PRN Reason: Pain (severe 7-10) Last Admin: 03/17/17 08:14 Dose: 0.5 mg Sodium Chloride (Normal Saline) 1,000 mls @ 100 mls/hr IV ASDIRECTED [facility] Last Admin: 03/14/17 15:54 Dose: 100 mls/hr Dextrose/Lactated Ringer's (Dextrose 5%-Lactated Ringers) 1,000 mls @ 125 mls/ hr IV ASDIRECTED [facility] Last Admin: 03/15/17 06:14 Dose: 125 mls/hr Sodium Chloride (Normal Saline) 1,000 mls @ 100 mls/hr IV ASDIRECTED [facility] Last Admin: 03/17/17 00:05 Dose: 100 mls/hr Dextrose/Lactated Ringer's (Dextrose 5%-Lactated Ringers) 1,000 mls @ 100 mls/ hr IV ASDIRECTED [facility] Last Admin: 03/19/17 00:10 Dose: 100 mls/hr Linezolid 600 mg/ Premix 300 mls @ 300 mls/hr IV ONETIME ONE Stop: 03/19/17 08:29 Last Admin: 03/19/17 08:41 Dose: 300 mls/hr Lidocaine/Epinephrine (Xylocaine 1% With Epinephrine 1:100,000) Confirm Administered Dose 50 ml .ROUTE .STK-MED ONE Stop: 03/17/17 07:23 Last Admin: 03/17/17 13:20 Dose: 5 ml Lidocaine/Epinephrine (Xylocaine 1% With Epinephrine 1:100,000) Confirm Administered Dose 50 ml .ROUTE .STK-MED ONE Stop: 03/19/17 07:07 Last Admin: 03/19/17 09:05 Dose: 5 ml Lorazepam (Ativan) 0.5 - 1 mg IVPUSH Q4H PRN PRN Reason: Nausea/Vomiting Ondansetron HCl (Zofran) 4 mg IV Q6H PRN PRN Reason: Nausea/Vomiting Pantoprazole Sodium (Protonix Iv) 40 mg IV Q24H [facility] Last Admin: 03/15/17 00:48 Dose: Not Given Pantoprazole Sodium (Protonix Iv) 40 mg IV Q24H [facility] Last Admin: 03/14/17 19:45 Dose: 40 mg Pantoprazole Sodium (Protonix Iv) 40 mg IV Q24H [facility] Propofol (Diprivan 20 Ml) Confirm Administered Dose 200 mg .ROUTE .STK-MED ONE Stop: 03/17/17 07:42 Propofol (Diprivan 20 Ml) Confirm Administered Dose 200 mg .ROUTE .STK-MED ONE Stop: 03/19/17 08:30 Warfarin Sodium (Coumadin) 7.5 mg PO ONETIME ONE Stop: 03/19/17 13:01 Last Admin: 03/19/17 13:26 Dose: 7.5 mg Warfarin Sodium (Coumadin) 7.5 mg PO ONETIME ONE Stop: 03/20/17 11:01 Last Admin: 03/20/17 11:29 Dose: 7.5 mg - Exam Quality Assessment: No: Supplemental Oxygen General: Alert, Oriented, Cooperative, No Acute Distress Neck: Supple Lungs: Clear to Auscultation, Normal Respiratory Effort Cardiovascular: Regular Rate, Irregular Rhythm GI/Abdominal Exam: Soft, Non-Tender, No Distention Extremities: Pedal Edema (pitting both legs to the knee), Other (pitting edema left arm). No: Increased Warmth Skin: Warm, Dry Psy/Mental Status: Alert, Normal Affect - Problem List & Annotations (1) Deep venous thrombosis of left upper extremity SNOMED Code(s): 086703774 Code(s): I82.622 - ACUTE EMBOLISM AND THROMBOSIS OF DEEP VEINS OF L UP EXTREM Status: Acute Current Visit: Yes Qualifiers: Affected thrombotic vein of extremity: axillary Chronicity: acute Qualified Code(s): I82.A12 - Acute embolism and thrombosis of left axillary vein (2) Small bowel obstruction SNOMED Code(s): 171321092 Code(s): K56.609 - UNSP INTESTNL OBST, UNSP TO PARTIAL VERSUS COMPLETE OBST Status: Deleted Current Visit: Yes (3) Anemia of chronic disease SNOMED Code(s): 610436028 Code(s): D63.8 - ANEMIA IN OTHER CHRONIC DISEASES CLASSIFIED ELSEWHERE Status: Acute Current Visit: Yes (4) Pancreatic cancer SNOMED Code(s): 574407564 Code(s): C25.9 - MALIGNANT NEOPLASM OF PANCREAS, UNSPECIFIED Status: Chronic Current Visit: No Qualifiers: Pancreatic malignancy location: head of pancreas Qualified Code(s): C25.0 - Malignant neoplasm of head of pancreas (5) Chronic kidney disease stage 3 SNOMED Code(s): 096240709 Code(s): N18.3 - CHRONIC KIDNEY DISEASE, STAGE 3 (MODERATE) Status: Chronic Current Visit: No - Problem List Review Problem List Initiated/Reviewed/Updated: Yes - My Orders Last 24 Hours: My Active Orders 03/21/17 13:00 Warfarin [Coumadin] 5 mg PO DAILY@1300 03/22/17 05:00 BASIC METABOLIC PANEL,BMP [CHEM] Timed HGB [HEMOGLOBIN] [HEME] Timed INR,PT,PROTHROMBIN TIME [COAG] Timed - Plan Plan:: ASSESSMENT AND PLAN - Atrial fibrillation with rapid ventricular response - may be a contributing factor in dizziness and imbalance. Rate control is better with the diltiazem infusion. Unfortunately he failed cardioversion this morning. -Continue cardiac monitoring but currently stable without active medications -Continue warfarin -Follow-up echocardiogram Imbalance - new symptom, patient thinks it's related to fatigue and poor sleep. No focal neurologic deficits. MRI pending. Could be related atrial fibrillation. Could be related to volume depletion with recent diuresis as well as contribution from tamsulosin. -Optimize management of atrial fibrillation -Follow-up MRI Left upper extremity DVT - provoked in the setting of cancer and left subclavian Port-A-Cath. -Enoxaparin 1.5 mg/kg every 24 hours Until INR therapeutic -Warfarin 7.5 mg by mouth today -Repeat INR in a.m. -pain control Fluid overload - significant peripheral edema that has been improving. -Furosemide 40 mg by mouth daily -Reassess in a.m. Bladder outlet obstruction - likely secondary to BPH -Flomax 0.4 mg by mouth daily -Reassess post void residuals Probable partial small bowel obstruction - currently tolerating a soft low residue diet -Soft mechanical low residue diet -Surgical follow-up per Dr. Short Acute on chronic kidney injury - renal function has improved from admission, currently at baseline -Follow-up labs in a.m. Pancreatic cancer - has been receiving outpatient chemotherapy and is followed by the [facility]. -Outpatient follow-up Maintenance issues - - DVT prophylaxis - enoxaparin - GI prophylaxis - PPI - Nutrition - full liquid diet Disposition - anticipate discharge home after the hospital stay, hopefully tomorrow Primary care physician - Dr. Raygoza
[2017-03-21] MEDS ORDERED: Enoxaparin 80 MG/0.8 ML Syringe SUBCUT SCH (09:00)
--- NOTE | 2017-03-21 09:44 | PCM.PRNOTE ---
- Free Text/Narrative Note: Date of service: 03/21/2017 Proposed procedure: Synchronized cardioversion Preprocedure diagnosis: Atrial fibrillation with rapid ventricular response Post procedure diagnosis: Atrial fibrillation with rapid ventricular response Indication for procedure: Edgard was evaluated today for management atrial fibrillation with symptoms and rapid ventricular response. Synchronized cardioversion was recommended as a primary treatment. Description of the procedure: Edgard is currently located ICU room 124. We have reviewed the potential risks of electrical cardioversion including but not limited to: Superficial skin pantoja, ineffective treatment, other arrhythmias, reaction to anesthesia medications or potentially asystole. The benefits of the procedure have also been reviewed. At this time the patient wishes to proceed with electrical cardioversion. All necessary pre-procedure information and paperwork has been provided and completed, respectively. The patient was connected to cardioversion pads and monitoring equipment per protocol. Prior to the procedure, a timeout was held with nursing and anesthesia present to confirm the right patient and right procedure. Once appropriate anesthesia was applied the machine was charged to 200 Joules and a synchronized electrical shock was applied. The patient was successfully converted to normal sinus rhythm with some PAC's based on telemetry monitoring. They will remain in their current location until anesthesia has dissipated and the patient is more awake and alert and they will remain hospitalized overnight. Anticoagulation should be continued for at least one month post cardioversion. There were no immediate complications noted from the procedure. Post procedure EKG is pending at the time of dictation. Denny Davis M.D.
[2017-03-21] MEDS ORDERED: Propofol 200 MG/20 ML SDV ONE (11:35)
--- NOTE | 2017-03-21 11:48 | OR ---
DATE OF PROCEDURE: 03/17/2017 PREOPERATIVE DIAGNOSIS: Port located in left subclavian vein with associated DVT involving the left subclavian, axillary, brachiocephalic, and internal jugular veins. POSTOPERATIVE DIAGNOSIS: Port located in left subclavian vein with associated DVT involving the left subclavian, axillary, brachiocephalic and internal jugular veins. OPERATIVE PROCEDURE: Removal of Bard port located in left subclavian vein region (92008). ANESTHESIA: Local plus IV sedation. INDICATIONS FOR PROCEDURE: This is an 81-year-old, presently receiving chemotherapy for pancreatic carcinoma, who presents with a swollen arm and ultrasound shows DVT in the above- located areas. The plan is removal of the port to facilitate care and prevent compression of the DVT. Potential risks including bleeding and infection were reviewed, and the patient wishes to proceed. DETAILS OF PROCEDURE: The patient was taken to the operating room and placed in a supine position. IV sedation was administered, after which the upper chest around the port was then prepped and draped. This was then anesthetized with 1% lidocaine mixed with Marcaine, and a transverse incision was made and carried down through the skin and subcutaneous tissue. The port was then freed from its capsule and brought up slightly above the skin. The point where the port tubing exited the port site was then encircled with a pursestring stitch of 3-0 Vicryl stitch, and the catheter was then withdrawn, as the stitch was pulled up and tied, to prevent bleeding or air embolism. The incision was then closed with some 3- 0 and 4-0 Vicryl stitch deep and a dressing applied. The patient was taken to the recovery room in a satisfactory condition. There were no evident complications. aGry Short MD /[id number]
--- NOTE | 2017-03-21 12:26 | MR ---
Brain wo Cont HISTORY: Dizziness COMPARISON: CT brain 03/20/2017. FINDINGS: The diffusion images demonstrates no findings to suggest acute ischemia. There is extensive chronic white matter change in the periventricular and centrum semiovale regions. Diffuse renal atro phy. No abnormal extra-axial fluid collections. No acute hemorrhage. The posterior fossa and brainste m appear normal. The sinuses and mastoid air cells are clear. Impression: 1. No evidence for acute ischemia, hemorrhage or mass effect. 2. Extensive diffuse atrophy and chronic white matter changes.
[2017-03-21] MEDS ORDERED: Warfarin 5 MG Tab PO SCH (13:00)
--- NOTE | 2017-03-21 13:16 | PN ---
DATE OF SERVICE: 03/20/2017 The patient has been clinically stable and will likely be going home today. His pro-time is still subtherapeutic, so he will be bridged with Lovenox. He was started on Flomax yesterday and did have less residual volume, down from 300 to around 200 this morning. His incisions look clean. He will be sent home with Steri-Strips in place and instructed to take those off in about a week. Gary Short MD /[id number]
[2017-03-21] MEDS: Furosemide 40 MG Tab PO SCH (15:34)
[2017-03-21] MEDS: Pantoprazole 40 MG Tab.CR PO SCH (15:34)
[2017-03-21] MEDS: Acetaminophen 325 MG Tab PO PRN (16:03)
[2017-03-21] MEDS: Diltiazem 180 MG Cap.CD PO ONE (18:30)
[2017-03-21] MEDS: Melatonin 3 MG Tab PO PRN (20:09)
[2017-03-21] MEDS: Tamsulosin 0.4 MG Cap.ER PO SCH (20:09)
[2017-03-21] MEDS: LORazepam 2 MG/ML MDV IVPUSH PRN (21:21)
[2017-03-22] MEDS: Diltiazem 180 MG Cap.CD PO ONE (07:12)
[2017-03-22] MEDS: Pantoprazole 40 MG Tab.CR PO SCH (07:52)
[2017-03-22] MEDS: ENOXAPARIN SUBCUT SCH ×2 (09:29)
[2017-03-22] MEDS: Furosemide 40 MG Tab PO SCH (09:31)
--- NOTE | 2017-03-22 09:52 | PCM.PN ---
- General Info Date of Service: 03/22/17 Functional Status: Reports: Pain Controlled, Tolerating Diet, Ambulating - Review of Systems General: Reports: Weakness Gastrointestinal: Denies: Abdominal Pain Systems Review Comment:: No acute events overnight but unfortunately he did return to atrial fibrillation. Rate control has been borderline with heart rates around 100. No complaints of dizziness or unsteadiness. No abdominal pain but he does have mild distention. Bowels have been moving. Still urinating frequently but better than a few days ago. Feels weak but otherwise feels fairly well. - Patient Data Vitals - Most Recent: Last Vital Signs Temp 36.7 C 03/22/17 07:30 Pulse 111 H 03/22/17 07:30 Resp 20 03/22/17 07:30 BP 109/59 L 03/22/17 07:30 Pulse Ox 99 03/22/17 07:30 Orthostatic Blood Pressure [ 125/78 Standing] Orthostatic Blood Pressure [ 121/89 Sitting] Orthostatic Blood Pressure [ 123/65 Supine] Weight - Most Recent: 88.904 kg I&O - Last 24 Hours: Intake & Output 03/21/17 03/22/17 03/22/17 22:59 06:59 14:59 Intake Total 460 240 Output Total 275 Balance 460 -35 Lab Results Last 24 Hours: Laboratory Results - last 24 hr 03/22/17 03/22/17 03/22/17 Range/Units 04:45 04:45 04:45 Hgb 9.6 L (12.0-15.0) g/dL PT 26.8 H (9.5-12.0) sec INR 2.41 H (0.80-1.20) Sodium 141 (140-148) mmol/L Potassium 4.0 (3.6-5.2) mmol/L Chloride 106 (100-108) mmol/L Carbon Dioxide 26 (21-32) mmol/L Anion Gap 9.5 (5.0-14.0) mmol/L BUN 17 (7-18) mg/dL Creatinine 1.7 H (0.8-1.3) mg/dL Est Cr Clr Drug Dosing 32.97 mL/min Estimated GFR (MDRD) 39 L (>60) Glucose 106 (74-106) mg/dL Calcium 8.0 L (8.5-10.1) mg/dL Med Orders - Current: Current Medications Acetaminophen (Tylenol) 650 mg PO Q4H PRN PRN Reason: Pain (Mild 1-3)/fever Last Admin: 03/21/17 16:03 Dose: 650 mg Furosemide (Lasix) 40 mg PO DAILY [facility] Last Admin: 03/22/17 09:31 Dose: 40 mg Melatonin (Melatonin) 6 mg PO BEDTIME PRN PRN Reason: Sleep Last Admin: 03/21/17 20:09 Dose: 6 mg Ondansetron HCl (Zofran Odt) 4 mg PO Q6H PRN PRN Reason: Nausea able to take PO Oxycodone HCl (Oxycodone) 5 mg PO Q4H PRN PRN Reason: Pain Last Admin: 03/20/17 04:13 Dose: 5 mg Pantoprazole Sodium (Protonix) 40 mg PO DAILY@0730 [facility] Last Admin: 03/22/17 07:52 Dose: 40 mg Tamsulosin HCl (Flomax) 0.4 mg PO BEDTIME [facility] Last Admin: 03/21/17 20:09 Dose: 0.4 mg Discontinued Medications Acetaminophen (Tylenol) 650 mg RECTAL Q4H PRN PRN Reason: Mild pain/fever Bupivacaine HCl (Marcaine 0.5%) Confirm Administered Dose 50 ml .ROUTE .STK-MED ONE Stop: 03/17/17 07:22 Last Admin: 03/17/17 13:20 Dose: 5 ml Bupivacaine HCl (Marcaine 0.5%) Confirm Administered Dose 50 ml .ROUTE .STK-MED ONE Stop: 03/19/17 07:07 Last Admin: 03/19/17 09:05 Dose: 5 ml Diltiazem HCl (Diltiazem) 20 mg IVPUSH ONETIME ONE Stop: 03/20/17 15:52 Last Admin: 03/20/17 16:21 Dose: 20 mg Diltiazem HCl (Cardizem Cd) 180 mg PO ONETIME ONE Stop: 03/21/17 17:43 Last Admin: 03/22/17 07:12 Dose: Not Given Enoxaparin Sodium (Lovenox) 80 mg SUBCUT Q24H [facility] Last Admin: 03/15/17 17:00 Dose: 80 mg Enoxaparin Sodium (Lovenox) 80 mg SUBCUT Q12H [facility] Enoxaparin Sodium (Lovenox) 80 mg SUBCUT Q12H [facility] Stop: 03/18/17 10:00 Last Admin: 03/18/17 05:28 Dose: 80 mg Enoxaparin Sodium (Lovenox) 90 mg SUBCUT ONETIME ONE Stop: 03/18/17 18:01 Last Admin: 03/18/17 17:42 Dose: 90 mg Enoxaparin Sodium (Lovenox) 90 mg SUBCUT Q12H [facility] Last Admin: 03/20/17 06:55 Dose: 90 mg Enoxaparin Sodium 35 mg/ (Enoxaparin Sodium 100 mg) 135 mg SUBCUT DAILY [facility] Last Admin: 03/22/17 09:29 Dose: 135 mg Fentanyl (Sublimaze) Confirm Administered Dose 100 mcg .ROUTE .STK-MED ONE Stop: 03/19/17 08:30 Furosemide (Lasix) 60 mg IVPUSH ONETIME ONE Stop: 03/16/17 14:01 Last Admin: 03/16/17 16:27 Dose: 60 mg Furosemide 40 mg/ Furosemide (20 mg) 60 mg IV ONETIME ONE Stop: 03/19/17 12:16 Last Admin: 03/19/17 13:25 Dose: 60 mg Heparin Sodium (Porcine) (Heparin Lock Flush 100 Units/Ml) Confirm Administered Dose 1,000 units .ROUTE .STK-MED ONE Stop: 03/19/17 07:07 Last Admin: 03/19/17 09:10 Dose: 1,000 units Hydromorphone HCl (Dilaudid) 0.5 mg IVPUSH ONETIME ONE Stop: 03/14/17 14:40 Last Admin: 03/14/17 14:43 Dose: 0.5 mg Hydromorphone HCl (Dilaudid) 0.5 - 1 mg IVPUSH Q2H PRN PRN Reason: Pain (severe 7-10) Last Admin: 03/17/17 08:14 Dose: 0.5 mg Sodium Chloride (Normal Saline) 1,000 mls @ 100 mls/hr IV ASDIRECTED [facility] Last Admin: 03/14/17 15:54 Dose: 100 mls/hr Dextrose/Lactated Ringer's (Dextrose 5%-Lactated Ringers) 1,000 mls @ 125 mls/ hr IV ASDIRECTED [facility] Last Admin: 03/15/17 06:14 Dose: 125 mls/hr Sodium Chloride (Normal Saline) 1,000 mls @ 100 mls/hr IV ASDIRECTED [facility] Last Admin: 03/17/17 00:05 Dose: 100 mls/hr Dextrose/Lactated Ringer's (Dextrose 5%-Lactated Ringers) 1,000 mls @ 100 mls/ hr IV ASDIRECTED [facility] Last Admin: 03/19/17 00:10 Dose: 100 mls/hr Linezolid 600 mg/ Premix 300 mls @ 300 mls/hr IV ONETIME ONE Stop: 03/19/17 08:29 Last Admin: 03/19/17 08:41 Dose: 300 mls/hr Diltiazem HCl 100 mg/ Sodium (Chloride) 100 mls @ 5 mls/hr IV TITRATE MIKE; 5 MG /HR PRN Reason: Protocol Last Admin: 03/21/17 07:33 Dose: 5 mg/hr, 5 mls/hr Lidocaine/Epinephrine (Xylocaine 1% With Epinephrine 1:100,000) Confirm Administered Dose 50 ml .ROUTE .STK-MED ONE Stop: 03/17/17 07:23 Last Admin: 03/17/17 13:20 Dose: 5 ml Lidocaine/Epinephrine (Xylocaine 1% With Epinephrine 1:100,000) Confirm Administered Dose 50 ml .ROUTE .STK-MED ONE Stop: 03/19/17 07:07 Last Admin: 03/19/17 09:05 Dose: 5 ml Lorazepam (Ativan) 0.5 - 1 mg IVPUSH Q4H PRN PRN Reason: Nausea/Vomiting Lorazepam (Ativan) 0.5 mg IVPUSH Q2H PRN PRN Reason: Anxiety Last Admin: 03/21/17 21:21 Dose: 0.5 mg Ondansetron HCl (Zofran) 4 mg IV Q6H PRN PRN Reason: Nausea/Vomiting Pantoprazole Sodium (Protonix Iv) 40 mg IV Q24H [facility] Last Admin: 03/15/17 00:48 Dose: Not Given Pantoprazole Sodium (Protonix Iv) 40 mg IV Q24H [facility] Last Admin: 03/14/17 19:45 Dose: 40 mg Pantoprazole Sodium (Protonix Iv) 40 mg IV Q24H [facility] Propofol (Diprivan 20 Ml) Confirm Administered Dose 200 mg .ROUTE .STK-MED ONE Stop: 03/17/17 07:42 Propofol (Diprivan 20 Ml) Confirm Administered Dose 200 mg .ROUTE .STK-MED ONE Stop: 03/19/17 08:30 Propofol (Diprivan 20 Ml) Confirm Administered Dose 200 mg .ROUTE .STK-MED ONE Stop: 03/21/17 11:36 Warfarin Sodium (Coumadin) 7.5 mg PO ONETIME ONE Stop: 03/19/17 13:01 Last Admin: 03/19/17 13:26 Dose: 7.5 mg Warfarin Sodium (Coumadin) 7.5 mg PO ONETIME ONE Stop: 03/20/17 11:01 Last Admin: 03/20/17 11:29 Dose: 7.5 mg Warfarin Sodium (Coumadin) 5 mg PO DAILY@1300 [facility] Last Admin: 03/21/17 15:34 Dose: 5 mg - Exam Quality Assessment: No: Supplemental Oxygen General: Alert, Oriented, Cooperative, No Acute Distress Neck: Supple Lungs: Clear to Auscultation, Normal Respiratory Effort Cardiovascular: Regular Rate, Irregular Rhythm, Murmurs GI/Abdominal Exam: Soft, Non-Tender, Distended (mild) Extremities: Pedal Edema (pitting edema of both legs to mid-mayorga). No: Increased Warmth Skin: Warm, Dry Psy/Mental Status: Alert, Normal Affect - Problem List & Annotations (1) Deep venous thrombosis of left upper extremity SNOMED Code(s): 712036125 Code(s): I82.622 - ACUTE EMBOLISM AND THROMBOSIS OF DEEP VEINS OF L UP EXTREM Status: Acute Current Visit: Yes Qualifiers: Affected thrombotic vein of extremity: axillary Chronicity: acute Qualified Code(s): I82.A12 - Acute embolism and thrombosis of left axillary vein (2) Small bowel obstruction SNOMED Code(s): 304370397 Code(s): K56.609 - UNSP INTESTNL OBST, UNSP TO PARTIAL VERSUS COMPLETE OBST Status: Deleted Current Visit: Yes (3) Anemia of chronic disease SNOMED Code(s): 931565988 Code(s): D63.8 - ANEMIA IN OTHER CHRONIC DISEASES CLASSIFIED ELSEWHERE Status: Acute Current Visit: Yes (4) Pancreatic cancer SNOMED Code(s): 193326803 Code(s): C25.9 - MALIGNANT NEOPLASM OF PANCREAS, UNSPECIFIED Status: Chronic Current Visit: No Qualifiers: Pancreatic malignancy location: head of pancreas Qualified Code(s): C25.0 - Malignant neoplasm of head of pancreas (5) Chronic kidney disease stage 3 SNOMED Code(s): 929530510 Code(s): N18.3 - CHRONIC KIDNEY DISEASE, STAGE 3 (MODERATE) Status: Chronic Current Visit: No - Problem List Review Problem List Initiated/Reviewed/Updated: Yes - My Orders Last 24 Hours: My Active Orders 03/21/17 09:41 EKG 12 Lead [EK] Urgent 03/21/17 Dinner Soft Diet [DIET] 03/22/17 09:47 Transfer Patient (Change bed) [ADT] Routine 03/22/17 09:49 Discontinue Telemetry Monitoring [Cardiac Monitoring Discontinue] [RC] Click to Edit 03/22/17 09:50 Ambulate [RC] QID 03/22/17 13:00 Warfarin [Coumadin] 3 mg PO DAILY@1300 03/23/17 05:00 HGB [HEMOGLOBIN] [HEME] Timed INR,PT,PROTHROMBIN TIME [COAG] Timed - Plan Plan:: ASSESSMENT AND PLAN - Atrial fibrillation with rapid ventricular response - may be a contributing factor in dizziness and imbalance. Rate control is suboptimal but symptoms have resolved. Echocardiogram showed enlarged atria and several valvular abnormalities. -Increase diltiazem -Continue warfarin Imbalance - new symptom but seems to have resolved. MRI negative for acute pathology. -Optimize management of atrial fibrillation -Physical therapy Left upper extremity DVT - provoked in the setting of cancer and left subclavian Port-A-Cath. INR now therapeutic. -Continue warfarin -Repeat INR in a.m. -pain control Fluid overload - edema improving but not resolved. -Furosemide 40 mg by mouth daily -Reassess in a.m. Bladder outlet obstruction - likely secondary to BPH -Flomax 0.4 mg by mouth daily Probable partial small bowel obstruction - currently tolerating a soft low residue diet -Soft mechanical low residue diet -Surgical follow-up per Dr. Short Acute on chronic kidney injury - renal function has improved from admission, currently at baseline -Follow-up labs in a.m. Pancreatic cancer - has been receiving outpatient chemotherapy and is followed by the [facility]. -Outpatient follow-up Maintenance issues - - DVT prophylaxis - warfarin - GI prophylaxis - PPI - Nutrition - soft diet Disposition - anticipate discharge home after the hospital stay, hopefully tomorrow if strength improves after some physical therapy today. Primary care physician - Dr. Raygoza
[2017-03-22] MEDS ORDERED: Diltiazem 120 MG Cap.CD PO SCH (17:00)
[2017-03-22] MEDS: Tamsulosin 0.4 MG Cap.ER PO SCH (20:15)
[2017-03-23 07:31] VITALS: BP 117/74
[2017-03-23] MEDS: Pantoprazole 40 MG Tab.CR PO SCH (09:03)
[2017-03-23] MEDS: Furosemide 40 MG Tab PO SCH (09:03)
--- NOTE | 2017-03-23 11:57 | PCM.DCSUM1 ---
Discharge Summary - Hospital Course Brief History: Mr. Genao is an 81-year-old gentleman who is admitted through the emergency department with nausea vomiting and abdominal pain secondary to a partial small bowel obstruction. He also had significant left arm swelling on initial presentation and on evaluation with ultrasound was found to have a deep vein thrombosis involving the left upper extremity. - Discharge Data Discharge Date: 03/23/17 Discharge Disposition: Home, W Home Health Agency 06 Condition: Good - Discharge Diagnosis/Problem(s) (1) Deep venous thrombosis of left upper extremity SNOMED Code(s): 907271113 ICD Code: I82.622 - ACUTE EMBOLISM AND THROMBOSIS OF DEEP VEINS OF L UP EXTREM Status: Acute Qualifiers: Affected thrombotic vein of extremity: axillary Chronicity: acute Qualified Code(s): I82.A12 - Acute embolism and thrombosis of left axillary vein (2) Small bowel obstruction SNOMED Code(s): 223878815 ICD Code: K56.609 - UNSP INTESTNL OBST, UNSP TO PARTIAL VERSUS COMPLETE OBST Status: Deleted Problem Details: partial SBO probably 2/2 adhesions (3) Anemia of chronic disease SNOMED Code(s): 260299852 ICD Code: D63.8 - ANEMIA IN OTHER CHRONIC DISEASES CLASSIFIED ELSEWHERE Status: Acute (4) Pancreatic cancer SNOMED Code(s): 608898914 ICD Code: C25.9 - MALIGNANT NEOPLASM OF PANCREAS, UNSPECIFIED Status: Chronic Qualifiers: Pancreatic malignancy location: head of pancreas Qualified Code(s): C25.0 - Malignant neoplasm of head of pancreas (5) Chronic kidney disease stage 3 SNOMED Code(s): 546630987 ICD Code: N18.3 - CHRONIC KIDNEY DISEASE, STAGE 3 (MODERATE) Status: Chronic (6) Atrial fibrillation with rapid ventricular response SNOMED Code(s): 656895830491627 ICD Code: I48.91 - UNSPECIFIED ATRIAL FIBRILLATION Status: Acute (7) CKD (chronic kidney disease), stage III SNOMED Code(s): 243655885 ICD Code: N18.3 - CHRONIC KIDNEY DISEASE, STAGE 3 (MODERATE) Status: Chronic - Patient Summary/Data Operative Procedure(s) Performed: Left Port-A-Cath removal. Insertion of right- sided Port-A-Cath. -Both procedures performed by Dr. Short Consults: Consultations 03/16/17 16:54 Consult to Physician [CONS] Routine Consulting Provider: Gary Short Courtesy Call Completed to Consulting Physician: Yes Reason for Consult: Removal of left Port-A-Cath Hospital Course: This discharge summary will serve as a [employer] sales consultant to the one completed by Dr. Buck on March 20. His discharge summary nicely summarizes the first portion of his hospital stay. This document will summarize the last 4 days of his hospitalization when planned discharge on March 20 did not happen. On March 20 discharge home was planned but unfortunately Edgard had difficulty with gait instability and dizziness. He was noted to be in atrial fibrillation with a rapid ventricular response at that time. He was transferred to the intensive care unit and started on a diltiazem infusion. Overnight acceptable rate control was achieved using the infusion. On the morning of March 21 we performed a synchronized cardioversion which did convert him to sinus rhythm with multiple PACs noted. He remained relatively stable in this rhythm throughout the day. We did obtain an echocardiogram on this day as well. This showed aortic sclerosis with mild aortic stenosis as well as mitral regurgitation which was moderate and biatrial enlargement. LVH was noted with a thickened myocardium was observed. The calculated ejection fraction was quite low but visual inspection revealed a normal ejection fraction. He remained in the intensive care unit throughout the night on March 21. Unfortunately overnight he went back into atrial fibrillation though his rate remained fairly well controlled. We did increase his diltiazem and have had better rate control of 240 mg. I suspect his atrial fibrillation is related to the biatrial enlargement. He does have some ongoing evidence for peripheral edema though I think his intravascular volume is appropriate at this time. I was reluctant to perform a second cardioversion because the first one did not hold very long. He was agreeable to continue with rate control at the time of discharge. He will be on warfarin for his left arm DVT which will overlap nicely to reduce his risk of thrombotic CVA related to the atrial fibrillation. On March 22 he was transferred out of the intensive care unit to the medical floor. He has remained stable since that time. He has been working with physical therapy and although he remains weak he is safe for outpatient management at this time. His INR is now therapeutic and his warfarin dose has been reduced because of the mildly supratherapeutic INR on the day of discharge. He is interested in home health care follow-up and management after discharge to home. He does not need any additional enoxaparin injections and this prescription was canceled. He will be on furosemide 40 mg once a day to help improve his edema which has been steadily improving. He will be on tamsulosin to help with some BPH with mild obstruction noted during the hospital stay. He will be sent home with warfarin 2.5 mg a day starting the day after discharge and no warfarin was given on the day of discharge. He would benefit from an INR check in 2 days time. He has been having regular bowel movements. - Patient Instructions Diet: Low Sodium, GI Soft/Low Residue/Low Fiber Activity: As Tolerated Showering/Bathing: May Shower Notify Provider of: Fever, Increased Pain Other/Special Instructions: 1. You were in the hospital for management of a left arm DVT as well as a partial small bowel obstruction. The small bowel obstruction has resolved without any surgical intervention and was likely due to adhesions from previous surgeries. We recommend a soft diet and follow up with Dr. Short next week. For the DVT I recommend at least 6 months of anticoagulation with warfarin. You should take 2.5 mg of warfarin daily starting tomorrow, . Do not take any warfarin today (Tuesday). You should have your INR checked by home health care on March 25. 2. Also encountered during the hospital stay was an episode of atrial fibrillation. I suspect this was related to several of the acute issues managed during the hospital stay. We were unsuccessful in maintaining normal sinus rhythm after a cardioversion and I recommend ongoing management with diltiazem to help keep your heart rate slow. You should take 240 mg of diltiazem once daily in the morning. 3. I have placed a referral to home health care to help ease the transition from the hospital to home. He will be receiving services from nursing, physical therapy and occupational therapy. 4. [facility] is aware that you are going home today and will be contacting you next week to set up your next appointment and chemotherapy. 5. You will need a referral to the Coumadin clinic at [facility] to help manage your INR after hospital discharge. 6. Please seek medical attention if you develop fever greater than 101, have sudden onset of shortness of breath, severe abdominal pain or persistent vomiting. - Discharge Plan Prescriptions/Med Rec: Diltiazem HCl [Diltiazem 24Hr Cd] 240 mg PO DAILY #30 cap.er.24h Furosemide [Lasix] 40 mg PO DAILY #30 tablet Tamsulosin [Flomax] 0.4 mg PO BEDTIME #30 cap.er Warfarin [Coumadin] 2.5 mg PO DAILY #30 tablet Home Medications: Home Meds Multivitamin with Minerals [Multiple Vitamin] 1 each PO DAILY 11/19/13 [History] [place]-3/DHA/Epa/Fish Oil [Fish Oil 1,000 mg Softgel] 1 each PO DAILY 11/19/13 [ History] Nitroglycerin [Nitrostat] 0.4 mg SL ASDIRECTED 07/03/15 [History] Melatonin 5 mg PO BEDTIME PRN 08/19/16 [History] Cholecalciferol (Vitamin D3) [Vitamin D3] 1 tab PO DAILY 10/15/16 [History] Docusate Sodium [Colace Clear] 50 mg PO BID 10/15/16 [History] Prochlorperazine Maleate [Compazine] 10 mg PO ASDIRECTED PRN 10/15/16 [History] Hydrocodone/Acetaminophen [Hydrocodon-Acetaminophn 10-325] 1 tab PO QID PRN [History] Furosemide [Lasix] 40 mg PO DAILY #30 tablet 03/20/17 [Rx] Tamsulosin [Flomax] 0.4 mg PO BEDTIME #30 cap.er 03/20/17 [Rx] Diltiazem HCl [Diltiazem 24Hr Cd] 240 mg PO DAILY #30 cap.er.24h 03/23/17 [Rx] Warfarin [Coumadin] 2.5 mg PO DAILY #30 tablet 03/23/17 [Rx] Patient Handouts: Small Bowel Series, Care After, [id number], Diltiazem extended-release capsules or tablets, Warfarin Coagulopathy Referrals: Bora Raygoza MD [Primary Care Provider] - 03/30/17 12:15 pm (1 week - f/u hospital stay for left arm DVT, atrial fibrillation, small bowel obstruction and generalized weakness) Gary Short MD [Physician] - 03/30/17 10:45 am - Discharge Summary/Plan Comment DC Time >30 min.: Yes (40 - complex hospital discharge, coordinating home health care follow-up) - Patient Data Vitals - Most Recent: Last Vital Signs Temp 36.6 C 03/23/17 07:28 Pulse 110 H 03/23/17 07:28 Resp 16 03/23/17 07:28 BP 117/74 03/23/17 07:28 Pulse Ox 99 03/23/17 07:28 Orthostatic Blood Pressure [ 125/78 Standing] Orthostatic Blood Pressure [ 121/89 Sitting] Orthostatic Blood Pressure [ 123/65 Supine] Weight - Most Recent: 88.904 kg I&O - Last 24 hours: Intake & Output 03/22/17 03/23/17 03/23/17 22:59 06:59 14:59 Intake Total 236 50 480 Output Total 700 275 200 Balance -464 -225 280 Lab Results - Last 24 hrs: Laboratory Results - last 24 hr 03/23/17 03/23/17 Range/Units 05:00 05:00 Hgb 10.0 L (12.0-15.0) g/dL PT 39.5 H (9.5-12.0) sec INR 3.50 H (0.80-1.20) Med Orders - Current: Current Medications Acetaminophen (Tylenol) 650 mg PO Q4H PRN PRN Reason: Pain (Mild 1-3)/fever Last Admin: 03/21/17 16:03 Dose: 650 mg Diltiazem HCl (Cardizem Cd) 240 mg PO QPM [facility] Last Admin: 03/22/17 17:20 Dose: 240 mg Furosemide (Lasix) 40 mg PO DAILY [facility] Last Admin: 03/23/17 09:03 Dose: 40 mg Melatonin (Melatonin) 6 mg PO BEDTIME PRN PRN Reason: Sleep Last Admin: 03/21/17 20:09 Dose: 6 mg Ondansetron HCl (Zofran Odt) 4 mg PO Q6H PRN PRN Reason: Nausea able to take PO Oxycodone HCl (Oxycodone) 5 mg PO Q4H PRN PRN Reason: Pain Last Admin: 03/20/17 04:13 Dose: 5 mg Pantoprazole Sodium (Protonix) 40 mg PO DAILY@0730 [facility] Last Admin: 03/23/17 09:03 Dose: 40 mg Tamsulosin HCl (Flomax) 0.4 mg PO BEDTIME [facility] Last Admin: 03/22/17 20:15 Dose: 0.4 mg Warfarin Sodium (Coumadin) 3 mg PO DAILY@1300 [facility] Last Admin: 03/22/17 14:51 Dose: 3 mg Discontinued Medications Acetaminophen (Tylenol) 650 mg RECTAL Q4H PRN PRN Reason: Mild pain/fever Bupivacaine HCl (Marcaine 0.5%) Confirm Administered Dose 50 ml .ROUTE .STK-MED ONE Stop: 03/17/17 07:22 Last Admin: 03/17/17 13:20 Dose: 5 ml Bupivacaine HCl (Marcaine 0.5%) Confirm Administered Dose 50 ml .ROUTE .STK-MED ONE Stop: 03/19/17 07:07 Last Admin: 03/19/17 09:05 Dose: 5 ml Diltiazem HCl (Diltiazem) 20 mg IVPUSH ONETIME ONE Stop: 03/20/17 15:52 Last Admin: 03/20/17 16:21 Dose: 20 mg Diltiazem HCl (Cardizem Cd) 180 mg PO ONETIME ONE Stop: 03/21/17 17:43 Last Admin: 03/22/17 07:12 Dose: Not Given Enoxaparin Sodium (Lovenox) 80 mg SUBCUT Q24H [facility] Last Admin: 03/15/17 17:00 Dose: 80 mg Enoxaparin Sodium (Lovenox) 80 mg SUBCUT Q12H [facility] Enoxaparin Sodium (Lovenox) 80 mg SUBCUT Q12H [facility] Stop: 03/18/17 10:00 Last Admin: 03/18/17 05:28 Dose: 80 mg Enoxaparin Sodium (Lovenox) 90 mg SUBCUT ONETIME ONE Stop: 03/18/17 18:01 Last Admin: 03/18/17 17:42 Dose: 90 mg Enoxaparin Sodium (Lovenox) 90 mg SUBCUT Q12H [facility] Last Admin: 03/20/17 06:55 Dose: 90 mg Enoxaparin Sodium 35 mg/ (Enoxaparin Sodium 100 mg) 135 mg SUBCUT DAILY [facility] Last Admin: 03/22/17 09:29 Dose: 135 mg Fentanyl (Sublimaze) Confirm Administered Dose 100 mcg .ROUTE .STK-MED ONE Stop: 03/19/17 08:30 Furosemide (Lasix) 60 mg IVPUSH ONETIME ONE Stop: 03/16/17 14:01 Last Admin: 03/16/17 16:27 Dose: 60 mg Furosemide 40 mg/ Furosemide (20 mg) 60 mg IV ONETIME ONE Stop: 03/19/17 12:16 Last Admin: 03/19/17 13:25 Dose: 60 mg Heparin Sodium (Porcine) (Heparin Lock Flush 100 Units/Ml) Confirm Administered Dose 1,000 units .ROUTE .STK-MED ONE Stop: 03/19/17 07:07 Last Admin: 03/19/17 09:10 Dose: 1,000 units Hydromorphone HCl (Dilaudid) 0.5 mg IVPUSH ONETIME ONE Stop: 03/14/17 14:40 Last Admin: 03/14/17 14:43 Dose: 0.5 mg Hydromorphone HCl (Dilaudid) 0.5 - 1 mg IVPUSH Q2H PRN PRN Reason: Pain (severe 7-10) Last Admin: 03/17/17 08:14 Dose: 0.5 mg Sodium Chloride (Normal Saline) 1,000 mls @ 100 mls/hr IV ASDIRECTED [facility]KE Last Admin: 03/14/17 15:54 Dose: 100 mls/hr Dextrose/Lactated Ringer's (Dextrose 5%-Lactated Ringers) 1,000 mls @ 125 mls/ hr IV ASDIRECTED [facility] Last Admin: 03/15/17 06:14 Dose: 125 mls/hr Sodium Chloride (Normal Saline) 1,000 mls @ 100 mls/hr IV ASDIRECTED [facility]KE Last Admin: 03/17/17 00:05 Dose: 100 mls/hr Dextrose/Lactated Ringer's (Dextrose 5%-Lactated Ringers) 1,000 mls @ 100 mls/ hr IV ASDIRECTED [facility] Last Admin: 03/19/17 00:10 Dose: 100 mls/hr Linezolid 600 mg/ Premix 300 mls @ 300 mls/hr IV ONETIME ONE Stop: 03/19/17 08:29 Last Admin: 03/19/17 08:41 Dose: 300 mls/hr Diltiazem HCl 100 mg/ Sodium (Chloride) 100 mls @ 5 mls/hr IV TITRATE MIKE; 5 MG /HR PRN Reason: Protocol Last Admin: 03/21/17 07:33 Dose: 5 mg/hr, 5 mls/hr Lidocaine/Epinephrine (Xylocaine 1% With Epinephrine 1:100,000) Confirm Administered Dose 50 ml .ROUTE .STK-MED ONE Stop: 03/17/17 07:23 Last Admin: 03/17/17 13:20 Dose: 5 ml Lidocaine/Epinephrine (Xylocaine 1% With Epinephrine 1:100,000) Confirm Administered Dose 50 ml .ROUTE .STK-MED ONE Stop: 03/19/17 07:07 Last Admin: 03/19/17 09:05 Dose: 5 ml Lorazepam (Ativan) 0.5 - 1 mg IVPUSH Q4H PRN PRN Reason: Nausea/Vomiting Lorazepam (Ativan) 0.5 mg IVPUSH Q2H PRN PRN Reason: Anxiety Last Admin: 03/21/17 21:21 Dose: 0.5 mg Ondansetron HCl (Zofran) 4 mg IV Q6H PRN PRN Reason: Nausea/Vomiting Pantoprazole Sodium (Protonix Iv) 40 mg IV Q24H [facility] Last Admin: 03/15/17 00:48 Dose: Not Given Pantoprazole Sodium (Protonix Iv) 40 mg IV Q24H [facility] Last Admin: 03/14/17 19:45 Dose: 40 mg Pantoprazole Sodium (Protonix Iv) 40 mg IV Q24H [facility] Propofol (Diprivan 20 Ml) Confirm Administered Dose 200 mg .ROUTE .STK-MED ONE Stop: 03/17/17 07:42 Propofol (Diprivan 20 Ml) Confirm Administered Dose 200 mg .ROUTE .STK-MED ONE Stop: 03/19/17 08:30 Propofol (Diprivan 20 Ml) Confirm Administered Dose 200 mg .ROUTE .STK-MED ONE Stop: 03/21/17 11:36 Warfarin Sodium (Coumadin) 7.5 mg PO ONETIME ONE Stop: 03/19/17 13:01 Last Admin: 03/19/17 13:26 Dose: 7.5 mg Warfarin Sodium (Coumadin) 7.5 mg PO ONETIME ONE Stop: 03/20/17 11:01 Last Admin: 03/20/17 11:29 Dose: 7.5 mg Warfarin Sodium (Coumadin) 5 mg PO DAILY@1300 [facility] Last Admin: 03/21/17 15:34 Dose: 5 mg - Exam Quality Assessment: Denies: Supplemental Oxygen General: Reports: Alert, Oriented, Cooperative, No Acute Distress Neck: Reports: Supple Lungs: Reports: Normal Respiratory Effort Cardiovascular: Reports: Regular Rate, Irregular Rhythm, Murmurs GI/Abdominal Exam: Distended (mild) Extremities: Pedal Edema (Pitting bilateral edema to mid [place]) Skin: Reports: Warm, Dry Psy/Mental Status: Reports: Alert, Normal Affect *Q Meaningful Use (DIS) - VTE *Q VTE Criteria *Q: - Stroke *Q Stroke Criteria *Q: - AMI *Q AMI Criteria *Q:
--- NOTE | 2017-03-27 12:50 | OR ---
DATE OF PROCEDURE: 03/19/2017 PREOPERATIVE DIAGNOSIS: Indications for central venous access. POSTOPERATIVE DIAGNOSIS: Indications for central venous access. OPERATIVE PROCEDURE: Placement of Bard port via right subclavian vein approach ([id number]). ANESTHESIA: Local plus IV sedation. INDICATIONS FOR PROCEDURE: The patient recently was admitted with a DVT involving the Bard port which was located in the left subclavian vein. This was removed and at this time he is undergoing placement of a new port on the right side. The patient is anticoagulated, but this would roughly appear to be reasonable at this point to proceed with the port placement as he will need it for upcoming chemotherapy regarding his pancreatic carcinoma. Potential risks of procedure including bleeding, infection, vascular or pulmonary injury were reviewed, and the patient wishes to proceed. DETAILS OF PROCEDURE: The patient was taken to the operating room and placed in a supine position. IV sedation was administered after which the upper chest and neck areas were prepped and draped. The right subclavian area was then anesthetized with 1% lidocaine mixed with Marcaine and a subclavian vein cannulated. A guidewire was passed and manipulated into the superior vena cava. Some additional local anesthetic was then injected and a transverse infraclavicular incision made and carried down through the skin and subcutaneous tissue and pectoralis major fascia. A pocket was then bluntly constructed, Bard port was then assembled, flushed with heparinized saline, port placed into the pocket, and the catheter cut such that the tip would lie into the area of the superior aspect of the right atrium. The catheter was then placed into that location with the introducer and peel-away catheter system without difficulty. The port was flushed with heparinized saline with good in and outflow through the port being confirmed. The incision was closed with some 3-0 and 4-0 Vicryl stitch deep and a 4-0 Vicryl subcuticular stitch. Dressing was applied. The patient was taken to the recovery room in satisfactory condition. There were no evident complications. Gary Short MD /[id number]
== END 2017-03-23 13:30 | disposition home health service (06) | DRG 982 ==
LOC: JP.ED 12:31 → JP.ICU 15:49 → JP.MS 03-15 18:23 → JP.ICU 03-20 15:49 → JP.MS 03-22 12:10
PROVIDERS: ADMIT Internal Medicine; ATTEND Internal Medicine
PROC: 30233N1 Transfusion of Nonautologous Red Blood Cells into Peripheral Vein, Percutaneous Approach (ICD-10-PCS; principal; 2017-03-14)
PROC: 05PY03Z Removal of Infusion Device from Upper Vein, Open Approach (ICD-10-PCS; 2017-03-17)
PROC: 0JPT0WZ Removal of Totally Implantable Vascular Access Device from Trunk Subcutaneous Tissue and Fascia, Open Approach (ICD-10-PCS; 2017-03-17)
PROC: 0JH60XZ Insertion of Tunneled Vascular Access Device into Chest Subcutaneous Tissue and Fascia, Open Approach (ICD-10-PCS; 2017-03-19)
PROC: 05H533Z Insertion of Infusion Device into Right Subclavian Vein, Percutaneous Approach (ICD-10-PCS; 2017-03-19)
PROC: 5A2204Z Restoration of Cardiac Rhythm, Single (ICD-10-PCS; 2017-03-21)
DX: K56.600 Partial intestinal obstruction, unspecified as to cause (principal); I82.A12 Acute embolism and thrombosis of left axillary vein; C25.0 Malignant neoplasm of head of pancreas; R18.8 Other ascites; N17.9 Acute kidney failure, unspecified; N13.8 Other obstructive and reflux uropathy; E63.8 Other specified nutritional deficiencies; R10.9 Unspecified abdominal pain; R53.1 Weakness; M79.602 Pain in left arm; N18.3 Chronic kidney disease, stage 3 (moderate); D63.8 Anemia in other chronic diseases classified elsewhere; I48.0 Paroxysmal atrial fibrillation; R26.89 Other abnormalities of gait and mobility; R42 Dizziness and giddiness; E87.5 Hyperkalemia; R79.1 Abnormal coagulation profile; Z98.1 Arthrodesis status; M19.90 Unspecified osteoarthritis, unspecified site; N40.1 Benign prostatic hyperplasia with lower urinary tract symptoms; K59.09 Other constipation; H54.7 Unspecified visual loss; H91.90 Unspecified hearing loss, unspecified ear; Z92.21 Personal history of antineoplastic chemotherapy; Z79.01 Long term (current) use of anticoagulants; E87.70 Fluid overload, unspecified; I35.0 Nonrheumatic aortic (valve) stenosis; I34.0 Nonrheumatic mitral (valve) insufficiency
CPT/HCPCS: 36415; 71020 ×2; 74176 ×2; 80053; 81001; 85025; 86850; 86900; 86901; 86920; 86922; 93971 ×2; 96375; 99285; J1170; 36430; 51798; 70450; 70551; 70551-26; 74020; 74020-26; 74022; 74022-26; 80048; 82272; 83735; 85014; 85018; 85027; 85610; 93005; 93306; 96365; 96366; 96374; A9270-GY; C1788; C9113; J1642; J1650; J1940; J2020; J2060; J2704; J3010; J3490; J7030; J7040; J7042; P9016